=== PATIENT | male | born 1935 | race African-American/Black ===

== ENCOUNTER 2016-07-09 18:22 | Inpatient (IN) | payer MEDICARE, OTHER ==
[~2016-07-09] VITALS: Ht 185.4 cm; Wt 82.6 kg
[~2016-07-09 18:22] MED LIST: ABILIFY2 MG ORAL; ACETAMINOPHEN500 M5 PO; ACETAMINOPHEN80 MG ORAL; AMLODIPINE BES2.5 MG ORAL; ASPIR 8181 MG ORAL; ATORVASTATIN CA10 MG ORAL; AUGMENTIN TAB875 MG ORAL; BENADRYL ALLERG25 M1 PO; COLACE100 MG ORAL; COLCHICINE0.6 M1 PO; DULCOLAX10 MG RC; FLEET ENEMA133 ML RECTAL; JANUVIA25 MG ORAL; LEVAQUIN500 MG ORAL; LEVEMIR FL100 UNIT/1 SUBQ; LOVENOX10 M1 SUBQ; METFORMIN HCL500 M1 ORAL; MILK OF MA400 MG/51 ORAL; MYLANTA30 M1 PO; NORVASC2.5 MG ORAL; NOVOLOG100 UNITS1 SQ; PAXIL10 MG ORAL; PLAVIX75 MG ORAL; PROTONIX40 MG ORAL; ROBITUSSIN DM5 ML ORAL; ZYLOPRIM100 MG ORAL
[2016-07-09 18:42] VITALS: BP 100/64
[2016-07-09 19:11] LABS: MEAN CORPUSCULAR HEMOGLOBIN 34.3 PG (27.0-31.0); MEAN CORPUSCULAR HGB CONC 34.9 G/DL (32.0-36.0); MEAN CORPUSCULAR VOLUME 98 FL (80-99); MEAN PLATELET VOLUME 9.6 FL (6.5-10.1); PLATELET COUNT 82 K/UL (150-450); RED CELL DISTRIBUTION WIDTH 12.8 % (11.6-14.8); WHITE BLOOD COUNT 7.4 K/UL (4.8-10.8)
[2016-07-09] MEDS ORDERED: Acetaminophen 500mg (ES) tab ORAL ONE (19:15)
[2016-07-09 19:25] LABS: TROPONIN I < 0.30 ng/mL (<=0.30)
[2016-07-09 19:28] LABS: ALANINE AMINOTRANSFERASE 62 U/L (3-41); ALBUMIN/GLOBULIN RATIO 1.4 (1.0-2.7); ANION GAP 25 (5-15); ASPARTATE AMINO TRANSFERASE 92 U/L (5-40); CALCIUM 9.2 mg/dL (8.6-10.2); CARBON DIOXIDE 18 mEQ/L (20-30); CHLORIDE 99 mEQ/L (98-107); CREATININE 1.4 mg/dL (0.7-1.2); HEMOLYSIS 4; POTASSIUM 3.4 mEQ/L (3.4-4.9); SODIUM 142 mEQ/L (135-145); TOTAL PROTEIN 6.3 g/dL (6.6-8.7)
[2016-07-09] MEDS ORDERED: NS 1000ml 2,900 ML IVLG ONE (19:30)
[2016-07-09] MEDS ORDERED: Cefepime HCl 1 GM in D5W 55 ML IVPB ONE (19:30)
[2016-07-09 19:31] LABS: REFLEX LACTIC ACID YES OR NO YES
[2016-07-09 19:38] LABS: CKMB 1.9 ng/mL (< 6.7)
[2016-07-09] MEDS ORDERED: Cefepime 1gm vial ONE (19:45)
[2016-07-09 19:49] LABS: BILIRUBIN,DIRECT 0.7 mg/dL (0.1-0.3)
[2016-07-09 20:12] VITALS: BP 96/55
--- NOTE | 2016-07-09 20:13 | Emergency Room Report ---
History of Present Illness General Chief Complaint: Flu Like Symptoms Source: Patient, EMS Present Illness HPI This patient presents from home not feeling well. He states that he has had no appetite. He states he feels weak. He denies cough or congestion. He denies abdominal pain. He denies chest pain or shortness of breath. He denies difficulty urinating. He does have subjective fever. He has no other complaints. Allergies: Coded Allergies: No Known Allergies (Unverified , 10/12/15) Call to [facility] [place] [facility], spoke with KALA Fung confirmed paperwork which indicated no known allergies to medications. Patient History Past Medical History: see triage record, DM, HTN, [place], CAD, CVA/TIA Social History: Denies: alcohol use, drug use, smoking Reviewed Nursing Documentation: PMH: Agreed, PSxH: Agreed Nursing Documentation-PMH Hx Cardiac Problems: Yes Hx Hypertension: Yes Hx Diabetes: Yes Hx Cancer: No - GOUT Hx Neurological Problems: Yes Hx Cerebrovascular Accident: Yes Review of Systems All Other Systems: negative except mentioned in HPI Physical Exam Vital Signs Date Time Temp Pulse Resp B/P Pulse Ox O2 Delivery O2 Flow Rate FiO2 07/09/16 18:21 99.1 141 20 100/64 93 Room Air Sp02 EP Interpretation: reviewed, normal General Appearance: no apparent distress, alert, GCS 15, non-toxic Head: normocephalic, atraumatic Eyes: bilateral eye PERRL, bilateral eye normal inspection ENT: hearing grossly normal, normal pharynx, no angioedema, normal voice Neck: full range of motion, supple/symm/no masses Respiratory: chest non-tender, lungs clear, normal breath sounds, speaking full sentences Cardiovascular #1: no edema, tachycardia Gastrointestinal: normal bowel sounds, non tender, soft, non-distended, no guarding, no rebound Rectal: deferred Musculoskeletal: back normal, normal range of motion, non-tender Neurologic: alert, oriented x3, responsive, motor strength/tone normal, sensory intact, speech normal Psychiatric: judgement/insight normal, memory normal, mood/affect normal, no suicidal/homicidal ideation Skin: normal color, no rash, warm/dry, well hydrated Medical Decision Making Diagnostic Impression: Primary Impression: Pneumonia Additional Impressions: Sepsis Fever Lactic acidosis ER Course Patient presents with pneumonia and sepsis. He is febrile, tachycardic and has an elevated lactate. Initially, the patient's blood pressure was lower than would be expected with systolics in the 90s. He was given aggressive IV fluids and broad-spectrum antibiotics stabilized and improved. He was found to have significant lactic acidosis. The patient had no abdominal pain or tenderness. Further discussion with the inpatient physician and a CT chest abdomen and pelvis was ordered to further investigate for a source of the significant lactic acidosis. Influenza test was negative. CT chest, abdomen and pelvis is pending. The inpatient physician and will follow up on the results of the CT' s. Please see the electronic medical record for official report. This patient is critically ill. This patient required complex medical decision- making, aggressive intervention, extensive laboratory workup and monitoring. Critical care time: 40 minutes. Labs Test 07/09/16 18:40 07/09/16 19:58 07/09/16 21:10 White Blood Count 7.4 K/UL (4.8-10.8) Red Blood Count 4.40 M/UL (4.70-6.10) Hemoglobin 15.1 G/DL (14.2-18.0) Hematocrit 43.3 % (42.0-52.0) Mean Corpuscular Volume 98 FL (80-99) Mean Corpuscular Hemoglobin 34.3 PG (27.0-31.0) Mean Corpuscular Hemoglobin Concent 34.9 G/DL (32.0-36.0) Red Cell Distribution Width 12.8 % (11.6-14.8) Platelet Count 82 K/UL (150-450) Mean Platelet Volume 9.6 FL (6.5-10.1) Neutrophils (%) (Auto) % (45.0-75.0) Lymphocytes (%) (Auto) % (20.0-45.0) Monocytes (%) (Auto) % (1.0-10.0) Eosinophils (%) (Auto) % (0.0-3.0) Basophils (%) (Auto) % (0.0-2.0) Sodium Level 142 mEQ/L (135-145) Potassium Level 3.4 mEQ/L (3.4-4.9) Chloride Level 99 mEQ/L (98-107) Carbon Dioxide Level 18 mEQ/L (20-30) Anion Gap 25 (5-15) Blood Urea Nitrogen 17 mg/dL (7-23) Creatinine 1.4 mg/dL (0.7-1.2) Estimat Glomerular Filtration Rate mL/min (>60) Glucose Level 106 mg/dL (74-106) Lactic Acid Level 6.00 mmol/L (0.66-2.22) 6.30 mmol/L (0.66-2.22) Calcium Level 9.2 mg/dL (8.6-10.2) Total Bilirubin 1.1 mg/dL (0.0-1.2) Direct Bilirubin 0.7 mg/dL (0.1-0.3) Aspartate Amino Transf (AST/SGOT) 92 U/L (5-40) Alanine Aminotransferase (ALT/SGPT) 62 U/L (3-41) Alkaline Phosphatase 46 U/L (40-129) Total Creatine Kinase 102 U/L (38-174) Creatine Kinase MB 1.9 ng/mL (< 6.7) Creatine Kinase MB Relative Index 1.8 Troponin I < 0.30 ng/mL (<=0.30) Total Protein 6.3 g/dL (6.6-8.7) Albumin 3.7 g/dL (3.5-5.2) Globulin 2.6 g/dL Albumin/Globulin Ratio 1.4 (1.0-2.7) EKG Diagnostic Results Rate: tachycardiac ST Segments: other Other Impression ST depressions in V3, V4, V5 Rhythm Strip Diag. Results EP Interpretation: yes Rate: 120's Rhythm: no PVC's, no ectopy Other Impression S.tachycardia. Chest X-Ray Diagnostic Results EP Interpretation: Yes Findings: no effusion, no pneumothorax, other Number of Views: 1 Other Impression LLL opacity CT/MRI/US Diagnostic Results CT/MRI/US Diagnostic Results : Imaging Test Ordered: CT CAP Impression Pending. See EMR. Last Vital Signs Date Time Temp Pulse Resp B/P Pulse Ox O2 Delivery O2 Flow Rate FiO2 07/09/16 18:42 141 20 Room Air 07/09/16 18:42 101.9 100/64 93 Disposition: ADMITTED INPATIENT Condition: Critical Referrals: NOT CHOSEN RUSS/,REFERRING (PCP) REG SCHROEDER D.O. Jul 09, 2016 20:13
[2016-07-09 21:33] LABS: KETONES,URINE 1+ (NEGATIVE); LEUKOCYTE ESTERASE ,URINE 1+ (NEGATIVE); NITRITE,URINE NEGATIVE (NEGATIVE); PH,URINE 5 (4.5-8.0); PROTEIN,URINE 2+ (NEGATIVE); UROBILINOGEN,URINE 4 MG/DL (0.0-1.0)
[2016-07-09 21:41] VITALS: BP 105/59
[2016-07-09 21:46] LABS: BAND NEUTROPHILS % (MANUAL) 2 % (0-8); EOSINOPHILS % (MANUAL) 1 % (0-3); LYMPHOCYTES % (MANUAL) 12 % (20-45); NEUTROPHILS % (MANUAL) 80 % (45-75); TOTAL CELLS COUNTED 100
[2016-07-09 21:47] LABS: BASOPHILS % (MANUAL) 0 % (0-2); PLATELET ESTIMATE DECREASED
[2016-07-09 21:48] LABS: MACROCYTES 1+; OVALOCYTES OCCASIONAL; PLATELET MORPHOLOGY NORMAL
[2016-07-09 22:03] LABS: APPEARANCE,URINE SLIGHTLY CLOUDY; RBC,URINE 0-2 /HPF (0 - 0)
[2016-07-09 22:04] LABS: BACTERIA,URINE FEW /HPF; SQUAMOUS EPITHELIAL CELL,UR FEW /LPF (NONE/OCC)
[2016-07-09 22:06] LABS: ICTOTEST POSITIVE
[2016-07-09 22:34] VITALS: BP 100/56
[2016-07-10] VITALS (16 sets, daily range): BP systolic 88–118; BP diastolic 53–77
[2016-07-10] MEDS ORDERED: Zolpidem 5mg tab ORAL PRN (03:30)
[2016-07-10] MEDS ORDERED: Milk of Magnesia 30ml Ud ORAL PRN (03:30)
[2016-07-10] MEDS ORDERED: Acetaminophen 500mg (ES) tab ORAL PRN (03:45)
[2016-07-10] MEDS ORDERED: Cefepime 2gm ONE (05:29)
[2016-07-10] MEDS ORDERED: Azithromycin Inj IV ONE (05:29)
[2016-07-10 05:53] LABS: MEAN CORPUSCULAR HEMOGLOBIN 33.4 PG (27.0-31.0); MEAN CORPUSCULAR HGB CONC 33.1 G/DL (32.0-36.0); MEAN CORPUSCULAR VOLUME 101 FL (80-99); MEAN PLATELET VOLUME 9.4 FL (6.5-10.1); PLATELET COUNT 61 K/UL (150-450); RED BLOOD COUNT 4.25 M/UL (4.70-6.10); WHITE BLOOD COUNT 7.5 K/UL (4.8-10.8)
[2016-07-10] MEDS: Azithromycin 500mg/D5W 275ml IV SCH ×2 (06:05)
[2016-07-10] MEDS: Cefepime 2gm/D5W 110ml IV SCH ×4 (06:06→19:35)
[2016-07-10] MEDS: NovoLOG Insulin Flexpen SUBQ SCH ×4 (06:20→22:27)
[2016-07-10 06:53] LABS: HEMOGLOBIN A1C 4.9 % (< 6.0)
[2016-07-10 06:55] LABS: TROPONIN I 6.37 ng/mL (<=0.30)
--- NOTE | 2016-07-10 07:01 | Pulmonology Progress Note ---
Assessment/Plan Assessment/Plan Impression: Low grade fever, tachycardia, hypotension, AMS all consistent with SIRS, possible sepsis. Lactic acidosis TRUDY Mild transaminitis Former smoker, chronic cough, ER record indicate LLL infiltrate suggestive of CAP Old CVA, right-sided weakness and dysarticulation/wheel chair bound Given CVA history and AMS and LLL infiltrate, aspiration/dysphagia to be looked into Recommendations: Follow up on CT scan (C/A/P) ordered in ED Swallow eval IVF Watch creat/LFT's Empiric antibiotics Keep HOB elevated DVT/stress ulcer prophylaxis Duplex of legs Many thanks, M. Gale Lopez MD, [facility] Pulmonary Subjective Allergies: Coded Allergies: No Known Allergies (Unverified , 10/12/15) Call to [facility], spoke with KALA Fung confirmed paperwork which indicated no known allergies to medications. Subjective Pulmonary Consultation Ref MD: Pedro Law MD Reason for consult: abnormal CXR/sepsis Former smoker with history of stroke, has felt weak for a few days. He does not recall details and in fact he did not know he was in the hospital when I told him so. He reports chronic intermittent cough "since childhood." He stoped smoking when diagnosed with stroke in 2003. 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 He is wheelchair bound (has electric wheelchair). Currently with no chest pain, has no dyspnea. has chronic mild cough. No abdominal pain. No emesis/diarrhea, no pain in extremities, has chronic right sided weakness. He has DM, no thyroid dysfxn, denies history of fall recently. Has no known LD. 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 FH: N/C ROS: 10 point review of system listed above Meds: reconciled see LAKESHIA BARBOZA Full code Objective Last 24 Hour Vital Signs Date Time Temp Pulse Resp B/P Pulse Ox O2 Delivery O2 Flow Rate FiO2 07/10/16 04:00 117 07/10/16 04:00 98.6 116 20 107/64 93 Room Air 07/09/16 23:14 97.8 127 25 100/56 96 Room Air 07/09/16 22:34 97.8 127 25 100/56 96 Room Air 07/09/16 21:41 99.8 118 25 105/59 96 Room Air 07/09/16 20:20 100.2 07/09/16 20:12 100.5 119 27 96/55 96 Room Air 07/09/16 18:42 141 20 Room Air 07/09/16 18:42 101.9 130 20 100/64 93 Room Air 07/09/16 18:21 99.1 141 20 100/64 93 Room Air Intake and Output 07/09/16 07/10/16 19:00 07:00 Intake Total 3275 ml Balance 3275 ml Intake Oral 320 ml IV Total 2955 ml Objective Gen: WDWN, weak, pleasant, alert HEENT: No discharge from ENT, dry MM, no conjunctivitis Neck: supple, no JVD/LN/TM Lungs: Clear, few left basilar rales, no whz Heart: Tachy, RR, 2/6 sys murmur apex Abdomen: Soft, slight RUQ tenderness, no guarding/rigidity Ext: No edema, +onchomycosis of toes Neuro: Awake, alert, poor recall for recent events (in ED), mild dysarticulation, 1/5 strength in RUE, 2/5 RLE Skin: No rash : groosly normal male Microbiology Date/Time Source Procedure Growth Status 07/09/16 18:40 Nasal Nares Influenza Types A,B Antigen (AIDAN) - Final Complete Laboratory Tests 07/09/16 18:40: White Blood Count 7.4, Red Blood Count 4.40L, Hemoglobin 15.1, Hematocrit 43.3, Mean Corpuscular Volume 98, Mean Corpuscular Hemoglobin 34.3H, Mean Corpuscular Hemoglobin Concent 34.9, Red Cell Distribution Width 12.8, Platelet Count 82L, Mean Platelet Volume 9.6, Neutrophils (%) (Auto) , Lymphocytes (%) (Auto) , Monocytes (%) (Auto) , Eosinophils (%) (Auto) , Basophils (%) (Auto) , Differential Total Cells Counted 100, Neutrophils % (Manual) 80H, Lymphocytes % (Manual) 12L, Monocytes % (Manual) 5, Eosinophils % (Manual) 1, Basophils % ( Manual) 0, Band Neutrophils 2, Platelet Estimate DecreasedL, Platelet Morphology Normal, Macrocytosis 1+, Ovalocytes Occasional, Sodium Level 142, Potassium Level 3.4, Chloride Level 99, Carbon Dioxide Level 18L, Anion Gap 25H , Blood Urea Nitrogen 17, Creatinine 1.4H, Estimat Glomerular Filtration Rate , Glucose Level 106, Lactic Acid Level 6.00H, Calcium Level 9.2, Total Bilirubin 1.1, Direct Bilirubin 0.7H, Aspartate Amino Transf (AST/SGOT) 92H, Alanine Aminotransferase (ALT/SGPT) 62H, Alkaline Phosphatase 46, Total Creatine Kinase 102, Creatine Kinase MB 1.9, Creatine Kinase MB Relative Index 1.8, Troponin I < 0.30, Total Protein 6.3L, Albumin 3.7, Globulin 2.6, Albumin/Globulin Ratio 1.4 07/09/16 19:58: Lactic Acid Level 6.30H 07/09/16 21:10: Urine Color Vesta, Urine Appearance Slightly cloudy, Urine pH 5, Urine Specific [place] 1.015, Urine Protein 2+H, Urine Glucose (UA) Negative, Urine Ketones 1+H , Urine Occult Blood Negative, Urine Nitrite Negative, Urine Bilirubin 2+H, Urine Ictotest Positive, Urine Urobilinogen 4H, Urine Leukocyte Esterase 1+H, Urine RBC 0-2H, Urine WBC 2-4, Urine Squamous Epithelial Cells Few, Urine Bacteria Few 07/10/16 03:20: White Blood Count 7.5, Red Blood Count 4.25L, Hemoglobin 14.2, Hematocrit 43.0, Mean Corpuscular Volume 101H, Mean Corpuscular Hemoglobin 33.4H, Mean Corpuscular Hemoglobin Concent 33.1, Red Cell Distribution Width 13.0, Platelet Count 61L, Mean Platelet Volume 9.4, Neutrophils (%) (Auto) , Lymphocytes (%) ( Auto) , Monocytes (%) (Auto) , Eosinophils (%) (Auto) , Basophils (%) (Auto) , Neutrophils % (Manual) [Pending], Lymphocytes % (Manual) [Pending], Platelet Estimate [Pending], Platelet Morphology [Pending], Sodium Level [Pending], Potassium Level [Pending], Chloride Level [Pending], Carbon Dioxide Level [ Pending], Blood Urea Nitrogen [Pending], Creatinine [Pending], Estimat Glomerular Filtration Rate [Pending], Glucose Level [Pending], Calcium Level [ Pending], Troponin I [Pending], Hemoglobin A1c [Pending], Pro-B-Type Natriuretic Peptide [Pending], Triglycerides Level [Pending], Cholesterol Level [Pending], LDL Cholesterol [Pending], HDL Cholesterol [Pending], Cholesterol/ HDL Ratio [Pending], Thyroid Stimulating Hormone (TSH) [Pending] Current Medications Medications (Trade) Dose Ordered Sig/Justina Route PRN Reason Start Time Stop Time Status Last Admin Dose Admin Acetaminophen (Tylenol) 650 mg Q6H PRN ORAL Mild Pain/Temp > 100.5 07/10/16 03:30 08/09/16 03:29 Al Hydroxide/Mg Hydroxide (Mylanta) 30 ml BID PRN ORAL Nausea & Vomiting 07/10/16 03:45 08/09/16 03:44 Allopurinol (Zyloprim) 100 mg BID@0900,2100 ORAL 07/10/16 09:00 08/09/16 08:59 Amlodipine Besylate (Norvasc) 2.5 mg DAILY ORAL 07/10/16 09:00 08/09/16 08:59 Aripiprazole (Abilify) 2.5 mg BEDTIME ORAL 07/10/16 21:00 08/09/16 20:59 Aspirin (Ecotrin) 81 mg DAILY ORAL 07/10/16 09:00 08/09/16 08:59 Atorvastatin Calcium (Lipitor) 10 mg BEDTIME ORAL 07/10/16 21:00 08/09/16 20:59 Azithromycin 500 mg/Dextrose 275 ml @ 275 mls/hr Q24H IV 07/10/16 05:00 07/17/16 04:59 07/10/16 06:05 Cefepime HCl/ Dextrose (Maxipime/D5W) 110 ml @ 220 mls/hr Q12H IV 07/10/16 06:00 07/17/16 05:59 07/10/16 06:06 Clopidogrel Bisulfate (Plavix) 75 mg DAILY ORAL 07/10/16 09:00 08/09/16 08:59 Dextrose (Dextrose 50%) STAT PRN IV Hypoglycemia 07/10/16 03:15 08/09/16 03:14 Docusate Sodium (Colace) 100 mg BID ORAL 07/10/16 09:00 08/09/16 08:59 Heparin Sodium (Porcine) (Heparin 5000 units/ml) 5,000 units EVERY 12 HOURS SUBQ 07/10/16 09:00 08/09/16 08:59 UNV Insulin Aspart (NovoLOG) BEFORE MEALS AND HS SUBQ 07/10/16 06:30 08/09/16 06:29 Magnesium Hydroxide (Mom) 30 ml DAILYPRN PRN ORAL Constipation 07/10/16 03:30 08/09/16 03:29 Metformin HCl (Glucophage) 500 mg TID@0800,1200,1700 ORAL 07/10/16 08:00 08/09/16 07:59 Paroxetine HCl 10 mg 10 mg DAILY ORAL 07/10/16 09:00 08/09/16 08:59 Sodium Chloride 1,000 ml @ 100 mls/hr Q10H IV 07/10/16 03:45 08/09/16 03:44 07/10/16 04:58 Zolpidem Tartrate (Ambien) 5 mg HSPRN PRN ORAL Insomnia 07/10/16 03:30 08/09/16 03:29 Joaquin Lopez MD Jul 10, 2016 07:01
[2016-07-10 07:19] LABS: ANION GAP 24 (5-15); CALCIUM 8.4 mg/dL (8.6-10.2); CARBON DIOXIDE 15 mEQ/L (20-30); CHLORIDE 104 mEQ/L (98-107); CHOLESTEROL 127 mg/dL (< 200); CHOLESTEROL/HDL RATIO 1.9 (3.3-4.4); CREATININE 1.4 mg/dL (0.7-1.2); HEMOLYSIS 21; LDL CHOLESTEROL (CALC.) 30 mg/dL (60-99); POTASSIUM 4.4 mEQ/L (3.4-4.9); SODIUM 143 mEQ/L (135-145)
[2016-07-10 07:21] LABS: THYROID STIMULATING HORMONE 0.936 uIU/mL (0.300-4.500)
[2016-07-10 08:34] LABS: BAND NEUTROPHILS % (MANUAL) 23 % (0-8); LYMPHOCYTES % (MANUAL) 12 % (20-45); METAMYELOCYTES % 5 % (0-0); MYELOCYTES % 1 % (0-0); NEUTROPHILS % (MANUAL) 56 % (45-75); TOTAL CELLS COUNTED 100
[2016-07-10 08:35] LABS: BASOPHILS % (MANUAL) 0 % (0-2); EOSINOPHILS % (MANUAL) 0 % (0-3); PLATELET ESTIMATE DECREASED; PLATELET MORPHOLOGY NORMAL
[2016-07-10] MEDS ORDERED: Metoprolol 5mg/5ml Inj IVP SCH (09:00)
[2016-07-10] MEDS ORDERED: Heparin 5000 units/ml inj SUBQ SCH (09:00)
[2016-07-10] MEDS: metFORMIN 500mg tab ORAL SCH ×3 (09:12→17:57)
[2016-07-10] MEDS: Aspirin EC 81mg tab ORAL SCH (09:12)
[2016-07-10] MEDS: Allopurinol 100mg Tab ORAL SCH ×2 (09:12→22:25)
[2016-07-10] MEDS: Docusate 100mg cap ORAL SCH ×2 (09:13→17:57)
[2016-07-10] MEDS: PARoxetine 10mg tab ORAL SCH (09:19)
[2016-07-10 09:29] LABS: REFLEX LACTIC ACID YES OR NO YES
[2016-07-10] MEDS: Metoprolol 25mg tab ORAL SCH ×2 (10:00→22:25)
--- NOTE | 2016-07-10 10:16 | Diagnostic Imaging Report ---
\H\CT THORAX\N\ Indications: And shortness of breath, fever, tachycardia, elevated serum lactate level Technique: Continuous helical CT imaging of the thorax was performed with automatic exposure control on a Siemens sensation [address] scanner. Axial images were reconstructed at 5 mm slice thickness and interval. Coronal images were reconstructed at 3 mm slice thickness. No IV contrast was administered secondary to requesting physician's order, despite no contraindications listed in either submitted clinical data or tech note.. CTDI volume(s): 17 mGy Total DLP: 1235 mGy-cm (Includes CT abdomen pelvis) Findings: Comparison: None Lack of IV contrast limits evaluation. Patchy airspace consolidation throughout left lower lobe. Irregular pleural-based linear densities and subsegmental consolidation dependent portion right lower lobe. No pleural abnormality. Heart normal size. No pericardial abnormality. Its prominent arterial mural calcifications. Vascular patency indeterminate. And prominent mediastinal lymph nodes, largest in the aortopulmonary window 3 cm maximal diameter. Small gas bubbles within the bilateral brachiocephalic veins. Mild stranding throughout chest wall subcutaneous soft tissues. Disc marginal osteophytes scattered throughout thoracic spine. IMPRESSION: Left lower lobe alveolar consolidation compatible with but not specific for pneumonia Right lower lobe subsegmental atelectasis with or without superimposed scarring Mediastinal adenopathy likely reactive to above Arteriosclerosis Suggestion of anasarca Degenerative spondylosis Small gas bubbles in central veins likely iatrogenic \H\CT ABDOMEN PELVIS\N\ Indications: Abdominal pain, fever, tachycardia, elevated serum lactate level Technique: Continuous helical CT imaging of the abdomen and pelvis was performed with automatic exposure control on a Siemens sensation [address] scanner. Axial, coronal, sagittal images reconstructed at 3 mm slice thickness. No oral or IV contrast was administered per requesting physician's order, despite no contraindications listed in either submitted clinical data or tech note.. CTDI volume(s): As above mGy Total DLP: As above mGy-cm Findings: Comparison: None Lack of IV and oral contrast limits evaluation. Images further degraded by motion, artifact generated by the patient's right upper extremity on his torso. Gastrointestinal tract nondilated throughout. No obvious mural thickening, adjacent stranding, extraluminal gas or fluid collections. Small nodular calcifications in the liver. Gallbladder not reliably identified. 2.8 cm circumscribed mass with mildly increased attenuation in multiple of left kidney. Focal calcifications in the periphery of both kidneys. Prominent arterial mural calcifications. Vascular patency indeterminate. Urinary bladder poorly distended, demonstrates apparent diffuse mural thickening. Remainder visualized abdominopelvic anatomy demonstrates no other obvious acute abnormality. Mild diffuse stranding throughout the abdominopelvic wall subcutaneous soft tissues. Multilevel disc space narrowing with marginal osteophyte formation, vacuum phenomenon, discogenic sclerosis, facet sclerosis and hypertrophy in lumbar spine. IMPRESSION: No evidence of acute abdominopelvic disease, with limitation as described. Subtle but potentially significant abnormalities may be missed. Repeat CT scan with full oral and IV contrast preparation recommended for more complete evaluation, as clinically indicated Nonvisualization of gallbladder--correlate with surgical history Hepatic calcifications--granulomatous versus arteriosclerotic Bilateral nonobstructive nephrolithiasis 2.8 cm left renal mass not further characterizable--proteinaceous cysts versus neoplasm. Ultrasound correlation recommended. Severe arteriosclerosis, vascular patency indeterminate -- Apparent mural thickening of urinary bladder wall--underdistention versus hypertrophy versus cystitis versus neoplasm Suggestion of mild anasarca Degenerative spondylosis This correlates with [facility] preliminary report.
--- NOTE | 2016-07-10 10:29 | Diagnostic Imaging Report ---
Indications: Chest pain Technique: Audible AP chest Findings: Comparison: 10/12/2015 Hazy opacity has developed in the left lower lung. Left costophrenic angle mildly less distinct than on previous exam. Right lung and pleura remain clear. Heart size and pulmonary vasculature remain within normal limits. Aortic arch calcification again noted. IMPRESSION: Left lower lobe findings suggest development of pneumonia. Correlate clinically. Associated small left pleural effusion not excludable.
[2016-07-10 11:44] LABS: PHOSPHORUS 3.3 mg/dL (2.5-4.8)
[2016-07-10 14:21] LABS: REFLEX LACTIC ACID YES OR NO YES
[2016-07-10 14:22] LABS: TROPONIN I 14.84 ng/mL (<=0.30)
--- NOTE | 2016-07-10 14:33 | Cardiology Report ---
APPROVED REPORT EKG Measurement Heart [id number] Sinus tachycardia Possible Left atrial enlargement Marked ST abnormality, possible anterior subendocardial injury Abnormal ECG
--- NOTE | 2016-07-10 14:49 | Cardiac Electrophysiology PN ---
Subjective Subjective [id number]. Objective Last 24 Hour Vital Signs Date Time Temp Pulse Resp B/P Pulse Ox O2 Delivery O2 Flow Rate FiO2 07/10/16 14:00 103 30 109/77 100 Nasal Cannula 3.0 07/10/16 13:00 98 34 106/77 100 Nasal Cannula 3.0 07/10/16 12:00 103 07/10/16 12:00 98.0 98 29 102/68 100 Nasal Cannula 3.0 07/10/16 11:00 98.1 98 29 94/61 100 Nasal Cannula 3.0 07/10/16 10:00 103 07/10/16 10:00 103 98/58 07/10/16 10:00 98.5 103 30 98/66 100 Nasal Cannula 3.0 07/10/16 09:23 114 100/67 07/10/16 08:00 117 07/10/16 08:00 97.5 117 24 105/58 93 Nasal Cannula 2.0 07/10/16 04:00 117 07/10/16 04:00 98.6 116 20 107/64 93 Room Air 07/09/16 23:14 97.8 127 25 100/56 96 Room Air 07/09/16 22:34 97.8 127 25 100/56 96 Room Air 07/09/16 21:41 99.8 118 25 105/59 96 Room Air 07/09/16 20:20 100.2 07/09/16 20:12 100.5 119 27 96/55 96 Room Air 07/09/16 18:42 141 20 Room Air 07/09/16 18:42 101.9 130 20 100/64 93 Room Air 07/09/16 18:21 99.1 141 20 100/64 93 Room Air Intake and Output 07/09/16 07/10/16 19:00 07:00 Intake Total 3695 ml Balance 3695 ml Intake Oral 320 ml IV Total 3375 ml Laboratory Tests Test 07/09/16 18:40 07/09/16 19:58 07/09/16 21:10 07/10/16 03:20 White Blood Count 7.4 K/UL (4.8-10.8) 7.5 K/UL (4.8-10.8) Red Blood Count 4.40 M/UL (4.70-6.10) L 4.25 M/UL (4.70-6.10) L Hemoglobin 15.1 G/DL (14.2-18.0) 14.2 G/DL (14.2-18.0) Hematocrit 43.3 % (42.0-52.0) 43.0 % (42.0-52.0) Mean Corpuscular Volume 98 FL (80-99) 101 FL (80-99) H Mean Corpuscular Hemoglobin 34.3 PG (27.0-31.0) H 33.4 PG (27.0-31.0) H Mean Corpuscular Hemoglobin Concent 34.9 G/DL (32.0-36.0) 33.1 G/DL (32.0-36.0) Red Cell Distribution Width 12.8 % (11.6-14.8) 13.0 % (11.6-14.8) Platelet Count 82 K/UL (150-450) L 61 K/UL (150-450) L Mean Platelet Volume 9.6 FL (6.5-10.1) 9.4 FL (6.5-10.1) Neutrophils (%) (Auto) % (45.0-75.0) % (45.0-75.0) Lymphocytes (%) (Auto) % (20.0-45.0) % (20.0-45.0) Monocytes (%) (Auto) % (1.0-10.0) % (1.0-10.0) Eosinophils (%) (Auto) % (0.0-3.0) % (0.0-3.0) Basophils (%) (Auto) % (0.0-2.0) % (0.0-2.0) Differential Total Cells Counted 100 100 Neutrophils % (Manual) 80 % (45-75) H 56 % (45-75) Lymphocytes % (Manual) 12 % (20-45) L 12 % (20-45) L Monocytes % (Manual) 5 % (1-10) 3 % (1-10) Eosinophils % (Manual) 1 % (0-3) 0 % (0-3) Basophils % (Manual) 0 % (0-2) 0 % (0-2) Band Neutrophils 2 % (0-8) 23 % (0-8) H Platelet Estimate Decreased L Decreased L Platelet Morphology Normal Normal Macrocytosis 1+ Ovalocytes Occasional Sodium Level 142 mEQ/L (135-145) 143 mEQ/L (135-145) Potassium Level 3.4 mEQ/L (3.4-4.9) 4.4 mEQ/L (3.4-4.9) Chloride Level 99 mEQ/L (98-107) 104 mEQ/L (98-107) Carbon Dioxide Level 18 mEQ/L (20-30) L 15 mEQ/L (20-30) L Anion Gap 25 (5-15) H 24 (5-15) H Blood Urea Nitrogen 17 mg/dL (7-23) 18 mg/dL (7-23) Creatinine 1.4 mg/dL (0.7-1.2) H 1.4 mg/dL (0.7-1.2) H Estimat Glomerular Filtration Rate mL/min (>60) mL/min (>60) Glucose Level 106 mg/dL (74-106) 83 mg/dL (74-106) Lactic Acid Level 6.00 mmol/L (0.66-2.22) H 6.30 mmol/L (0.66-2.22) H Calcium Level 9.2 mg/dL (8.6-10.2) 8.4 mg/dL (8.6-10.2) L Total Bilirubin 1.1 mg/dL (0.0-1.2) Direct Bilirubin 0.7 mg/dL (0.1-0.3) H Aspartate Amino Transf (AST/SGOT) 92 U/L (5-40) H Alanine Aminotransferase (ALT/SGPT) 62 U/L (3-41) H Alkaline Phosphatase 46 U/L (40-129) Total Creatine Kinase 102 U/L (38-174) Creatine Kinase MB 1.9 ng/mL (< 6.7) Creatine Kinase MB Relative Index 1.8 Troponin I < 0.30 ng/mL (<=0.30) 6.37 ng/mL (<=0.30) *H Total Protein 6.3 g/dL (6.6-8.7) L Albumin 3.7 g/dL (3.5-5.2) Globulin 2.6 g/dL Albumin/Globulin Ratio 1.4 (1.0-2.7) Urine Color Vesta Urine Appearance Slightly cloudy Urine pH 5 (4.5-8.0) Urine Specific [place] 1.015 (1.005-1.035) Urine Protein 2+ (NEGATIVE) H Urine Glucose (UA) Negative (NEGATIVE) Urine Ketones 1+ (NEGATIVE) H Urine Occult Blood Negative (NEGATIVE) Urine Nitrite Negative (NEGATIVE) Urine Bilirubin 2+ (NEGATIVE) H Urine Ictotest Positive Urine Urobilinogen 4 MG/DL (0.0-1.0) H Urine Leukocyte Esterase 1+ (NEGATIVE) H Urine RBC 0-2 /HPF (0 - 0) H Urine WBC 2-4 /HPF (0 - 0) Urine Squamous Epithelial Cells Few /LPF (NONE/OCC) Urine Bacteria Few /HPF (NONE) Metamyelocytes % 5 % (0-0) H Myelocytes % 1 % (0-0) H Red Blood Cell Morphology Normal Hemoglobin A1c 4.9 % (< 6.0) Phosphorus Level 3.3 mg/dL (2.5-4.8) Magnesium Level 1.0 mg/dL (1.7-2.5) L Pro-B-Type Natriuretic Peptide 78478 pg/mL (0-450) H Triglycerides Level 153 mg/dL (< 150) H Cholesterol Level 127 mg/dL (< 200) LDL Cholesterol 30 mg/dL (60-99) L HDL Cholesterol 66 mg/dL (> 60) H Cholesterol/HDL Ratio 1.9 (3.3-4.4) L Thyroid Stimulating Hormone (TSH) 0.936 uIU/mL (0.300-4.500) Test 07/10/16 08:05 07/10/16 13:50 Lactic Acid Level 5.20 mmol/L (0.66-2.22) H 4.90 mmol/L (0.66-2.22) H Troponin I 14.84 ng/mL (<=0.30) *H Legionella pneumophila Group 1 Ab Pending Legionella pneumophilia IgM Group 1 Pending Mycoplasma pneumoniae IgG Antibody Pending Mycoplasma pneumoniae IgM Ab Titer Pending Microbiology Date/Time Source Procedure Growth Status 07/09/16 18:40 Blood Blood Culture - Preliminary Resulted 07/09/16 18:25 Blood Blood Culture - Preliminary Resulted 07/09/16 18:40 Nasal Nares Influenza Types A,B Antigen (AIDAN) - Final Complete CHUCKIE VELARDE Jul 10, 2016 14:49
--- NOTE | 2016-07-10 15:59 | Consultation ---
DATE OF CONSULTATION: 07/10/2016 INFECTIOUS DISEASES CONSULTATION CONSULTING PHYSICIAN: Artemio Suero M.D. REFERRING PHYSICIAN: Pedro Law M.D. REASON FOR CONSULTATION: Pneumonia. HISTORY OF PRESENTING ILLNESS: This is an 80-year-old gentleman with history of diabetes, hypertension, CVA, and myocardial infarction, who came in with cough. He was found to have pneumonia, and an Infectious Diseases consultation has been obtained for antibiotics. PAST MEDICAL HISTORY: 1. History of diabetes. 2. Hypertension. 3. Myocardial infarction. 4. Coronary artery disease. 5. CVA. 6. Transient ischemic attack. 7. Gout. SOCIAL HISTORY: No history of smoking, alcohol, or drug use. FAMILY HISTORY: Positive for stroke. REVIEW OF SYSTEMS: Respiratory: The patient denies any fever or chills. He has a cough. No shortness of breath or chest pain currently. Cardiac: No chest pain. No palpitations. No dizziness. No syncope. Gastrointestinal: No nausea. No vomiting. No abdominal pain or diarrhea. Genitourinary: No dysuria. No hematuria. MEDICATIONS: As an inpatient, the patient is on Abilify, Lipitor, Lopressor, subcutaneous heparin, allopurinol, Norvasc, aspirin, Plavix, docusate, Paxil, metformin, insulin, cefepime, azithromycin, Mylanta, Tylenol, milk of magnesia, and Ambien. ALLERGIES: No known drug allergies. PHYSICAL EXAMINATION: VITAL SIGNS: Temperature of 98.5, pulse of 103, respiratory rate of 30, blood pressure 98/58, and O2 saturation of 100%. HEENT: Pupils are equally reactive to light and accommodation. Mouth appears clean without thrush. NECK: Supple. No adenopathy. No JVD. CARDIOVASCULAR: Regular rate and rhythm. No murmurs. LUNGS: Clear to auscultation bilaterally. No crackles. No wheezes. ABDOMEN: Soft. Nontender. No organomegaly. EXTREMITIES: No cyanosis. No clubbing. Edema noted bilaterally. LABORATORY AND DIAGNOSTIC DATA: White count 7.5, hemoglobin 14.2, hematocrit 43, MCV 101, and platelet count of 61 with neutrophils of 56%. Sodium 143, potassium 4.4, chloride 104, bicarbonate 15, BUN 18, creatinine 1.4, glucose 83, and calcium 8.4. Troponin 6.37 and beta-natriuretic peptide 13,996. Cholesterol 127. Lactic acid 5.2. UA showing 2 to 4 white cells. Nasal swab was negative for influenza A and B. Chest x-ray showing a left lower lobe opacity. ASSESSMENT: 1. This is an 80-year-old gentleman with history of diabetes, hypertension, myocardial infarction, who comes in with a left-sided community-acquired pneumonia versus atypical pneumonia. 2. History of coronary artery disease. 3. Diabetes. 4. Hypertension. PLAN: 1. Continue cefepime and azithromycin. 2. We will order sputum for Gram stain and culture. 3. We will order for serum Legionella antibody. 4. We will order for mycoplasma serology. 5. We will follow up cultures and adjust antibiotics accordingly. I would like to thank Dr. Law for this consultation. Grace Matos JOB#: [id number] CC: Pedro Law M.D.; Fax#: [phone]
[2016-07-10] MEDS ORDERED: Vancomycin 1250mg in D5W 275ml IVPB SCH (17:00)
[2016-07-10] MEDS ORDERED: NS 275ml ONE (18:04)
[2016-07-10] MEDS ORDERED: Tubing IV Secondary IV ONE ×2 (18:04)
[2016-07-10] MEDS: Pantoprazole Inj IVP SCH (22:24)
[2016-07-10] MEDS: Enoxaparin 80mg Inj SUBQ SCH (22:33)
[2016-07-10 23:26] LABS: MEAN CORPUSCULAR HEMOGLOBIN 32.9 PG (27.0-31.0); MEAN CORPUSCULAR HGB CONC 32.5 G/DL (32.0-36.0); MEAN CORPUSCULAR VOLUME 101 FL (80-99); MEAN PLATELET VOLUME 10.7 FL (6.5-10.1); PLATELET COUNT 71 K/UL (150-450); RED BLOOD COUNT 3.69 M/UL (4.70-6.10); RED CELL DISTRIBUTION WIDTH 13.5 % (11.6-14.8); WHITE BLOOD COUNT 12.2 K/UL (4.8-10.8)
[2016-07-10 23:30] LABS: BASOPHILS % (AUTO) 0.7 % (0.0-2.0); LYMPHOCYTES % (AUTO) 9.6 % (20.0-45.0); MONOCYTES % (AUTO) 8.6 % (1.0-10.0); NEUTROPHILS % (AUTO) 81.1 % (45.0-75.0)
--- NOTE | 2016-07-10 23:39 | History and Physical Report ---
DATE OF ADMISSION: 07/09/2016 HISTORY OF PRESENT ILLNESS: The patient is an unfortunate 80-year-old gentleman with history of diabetes, history of CVA with generalized right-sided hemiparesis, history of hypertension and history of hyperlipidemia, who presented to the emergency room at [facility] with complaints of generalized weakness occurring over the past several days. He has had difficulty getting out of bed. Denies any headaches. No sore throat. Denies any chest pain or shortness of breath. Denies any cough. No abdominal pain. No urinary symptoms. The patient was evaluated in the ER. He was noted to have a left lower lobe infiltrate as well as elevated lactic acid level. He was initially admitted to the monitored bed and started on antibiotics and fluids. Pulmonary ID consultation has been requested. PAST MEDICAL HISTORY: Includes a history of CVA with right-sided hemiparesis, history of schizophrenia, history of diabetes, history of previous diabetic type 2 ketoacidosis, history of hyperlipidemia, history of hypertension, history of gout, and history of CAD. MEDICATIONS: Please see reconciled med list. ALLERGIES: Penicillin. FAMILY HISTORY: Noncontributory. REVIEW OF SYSTEMS: He admits to generalized weakness as described above. A 12-point review of systems reviewed negative except for above. PHYSICAL EXAMINATION: GENERAL: The patient is a well-developed, well-nourished, currently in no apparent distress. VITAL SIGNS: Blood pressure 99/57, pulse 107, saturations 100% on 3 liters, and respirations are in the 30s and appears to be comfortable. HEENT: Head is normocephalic and atraumatic. Pupils are equal and reactive to light. Extraocular muscles are intact. Eyes are anicteric. NECK: Supple with slight JVP. LUNGS: He does have some crackles at the bases. HEART: Regular rate and rhythm. ABDOMEN: Soft. Positive bowel sounds. EXTREMITIES: No clubbing, cyanosis, or edema. NEUROLOGIC: Alert, nonfocal and generalized right-sided weakness and hemiparesis as a result of his CVA. LABORATORY DATA: Revealed a white count 7.4, hemoglobin 15.1, hematocrit 43, and platelet count 82,000. Chemistry revealed troponin of 6.37. Lactic acid, which was initially 6 has come down to 4.9. BMP is not on the computer at this time. EKG noted. ASSESSMENT AND PLAN: The patient is an 80-year-old gentleman with multiple medical problems, as described above, who presents with generalized weakness. He does have left lower lobe infiltrate and elevated lactic acid level. The patient was given intravenous fluids. antibiotics. ID and pulmonary consultation was requested Dr. Suero and Dr. Lopez. In the morning, I was called by nurse that his troponin was 6.37. He was started on beta-kashmir and transferred to the intensive care unit. A 2D echo has been requested and cardiology consultation was requested from Dr. Damico will be seeing him. We will monitor further troponins on him. The patient's lactic acid is slowly decreasing. The patient should be on DVT and ulcer prophylaxis. Pedro Law M.D. DR: DOMINIQUE JOB#: [id number] CC:
[2016-07-10 23:44] LABS: HEMOGLOBIN A1C 4.8 % (< 6.0)
[2016-07-10 23:45] LABS: ALANINE AMINOTRANSFERASE 41 U/L (3-41); ALBUMIN/GLOBULIN RATIO 1.1 (1.0-2.7); ANION GAP 17 (5-15); ASPARTATE AMINO TRANSFERASE 112 U/L (5-40); CALCIUM 6.6 mg/dL (8.6-10.2); CARBON DIOXIDE 17 mEQ/L (20-30); CHLORIDE 105 mEQ/L (98-107); CHOLESTEROL 97 mg/dL (< 200); CHOLESTEROL/HDL RATIO 2.9 (3.3-4.4); CREATININE 1.2 mg/dL (0.7-1.2); HEMOLYSIS 5; LDL CHOLESTEROL (CALC.) 35 mg/dL (60-99); PHOSPHORUS 2.1 mg/dL (2.5-4.8); POTASSIUM 3.6 mEQ/L (3.4-4.9); SODIUM 139 mEQ/L (135-145); TOTAL PROTEIN 4.7 g/dL (6.6-8.7)
[2016-07-10 23:49] LABS: TROPONIN I 5.53 ng/mL (<=0.30)
[2016-07-10 23:51] LABS: REFLEX LACTIC ACID YES OR NO YES
[2016-07-10 23:56] LABS: MAGNESIUM 0.9 mg/dL (1.7-2.5)
[2016-07-11] VITALS (24 sets, daily range): BP systolic 84–131; BP diastolic 58–69
[2016-07-11 00:11] LABS: BILIRUBIN,DIRECT 0.7 mg/dL (0.1-0.3)
--- NOTE | 2016-07-11 00:59 | Consultation ---
DATE OF CONSULTATION: 07/10/2016 CARDIOLOGY CONSULTATION REFERRING PHYSICIAN: Pedro Law M.D. REASON FOR CONSULTATION: Non-Q-wave myocardial infarction. HISTORY OF PRESENT ILLNESS: The patient is an 80-year-old gentleman, who was brought from home for not feeling well and not having appetite and feeling weak. The patient denies any chest pain or shortness of breath. No cough. His blood pressure in the ER was 110/64 with a pulse of 141. The patient's temperature was 99.1 degrees. His initial white count was 7.4, however initial troponin was negative, but a subsequent troponin came out 6. A Cardiology care consultation was obtained for further evaluation and management. At the time of my evaluation, the patient is admitted to intensive care unit and just complains of feeling weak, denies any chest pain or shortness of breath; however, his maximum temperature was 101.9 degrees. REVIEW OF SYSTEM: Performed and was negative other than what is mentioned in the history of present illness. PAST MEDICAL HISTORY: 1. Hypertension. 2. Diabetes. 3. Coronary artery disease. 4. Myocardial infarction. 5. CVA. 6. Transient ischemic attack. ALLERGIES: He has no known drug allergies. SOCIAL HISTORY: He lives with [facility]. He does not smoke or drink alcohol. PHYSICAL EXAMINATION: VITAL SIGNS: Show blood pressure 109/77, pulse of 102, respirations 30, and his maximum temperature is 102 degrees, and O2 saturation of 98%. NECK: Shows no JVD. LUNGS: Decreased breath sounds. CARDIOVASCULAR: Showed irregular S1 and S2 with no gallop or murmur. ABDOMEN: Soft. EXTREMITIES: No pitting edema. LABORATORY AND DIAGNOSTIC DATA: His CT of the chest, abdomen, and pelvis showed left lower lobe consolidation suggestive of pneumonia. His EKG showed sinus tachycardia with left atrial enlargement and marked ST abnormalities suggestive of subendocardial injury. His chest x-ray was suggestive of left lower lobe pneumonia. His labs show sodium 140, potassium 4.4, BUN of 18, creatinine 1.4, and glucose of 83. Lactic acid is 6.3. BNP is 14,000. LDL is 30, HDL is 66. TSH is 0.936. First troponin was negative, second was 6.37. 14.8. ASSESSMENT AND PLAN: 1. [id number] myocardial infarction. Troponin rising to 14.84. I will treat the patient medically with aspirin, Plavix, Lopressor, and Lipitor to his medical regimen. I will discontinue amlodipine beta-kashmir. The patient was doing cardiac catheterization for further evaluation of his coronaries. However, the patient does not have any chest pain or shortness of breath and is also being treated for sepsis as his temperature was 102 degrees with lactic acidosis. It is also of note that the patient currently is only 1.4. 2. Elevated troponin . 3. Hypertension. Continue on Lopressor 25 mg twice a day and discontinue amlodipine. 4. Hyperlipidemia, on Lipitor. 5. Diabetes, on metformin. 6. Left lower lobe pneumonia, cefepime and azithromycin. Thank you very much, Dr. Law, for allowing me to participate in the care of this patient. Please do not hesitate to contact me for any questions regarding my evaluation. Bebo Damico M.D. DR: Ct JOB#: [id number] CC:
[2016-07-11] MEDS: Cefepime 2gm/D5W 110ml IV SCH ×4 (05:37→18:36)
[2016-07-11] MEDS: Azithromycin 500mg/D5W 275ml IV SCH ×2 (05:37)
[2016-07-11] MEDS: NovoLOG Insulin Flexpen SUBQ SCH ×4 (06:01→20:32)
[2016-07-11 06:04] LABS: MEAN CORPUSCULAR HEMOGLOBIN 33.5 PG (27.0-31.0); MEAN CORPUSCULAR HGB CONC 33.7 G/DL (32.0-36.0); MEAN CORPUSCULAR VOLUME 100 FL (80-99); MEAN PLATELET VOLUME 11.6 FL (6.5-10.1); PLATELET COUNT 91 K/UL (150-450); RED BLOOD COUNT 3.71 M/UL (4.70-6.10); RED CELL DISTRIBUTION WIDTH 13.1 % (11.6-14.8); WHITE BLOOD COUNT 13.2 K/UL (4.8-10.8)
[2016-07-11 06:39] LABS: ALANINE AMINOTRANSFERASE 43 U/L (3-41); ALBUMIN/GLOBULIN RATIO 0.9 (1.0-2.7); ANION GAP 14 (5-15); ASPARTATE AMINO TRANSFERASE 118 U/L (5-40); CALCIUM 7.7 mg/dL (8.6-10.2); CARBON DIOXIDE 17 mEQ/L (20-30); CHLORIDE 106 mEQ/L (98-107); CREATININE 1.3 mg/dL (0.7-1.2); HEMOLYSIS 5; POTASSIUM 4.3 mEQ/L (3.4-4.9); SODIUM 137 mEQ/L (135-145); TOTAL PROTEIN 5.3 g/dL (6.6-8.7)
[2016-07-11 07:42] LABS: TROPONIN I 9.11 ng/mL (<=0.30)
[2016-07-11 07:43] LABS: BILIRUBIN,DIRECT 0.7 mg/dL (0.1-0.3)
[2016-07-11] MEDS: Allopurinol 100mg Tab ORAL SCH ×2 (08:50→20:22)
[2016-07-11] MEDS: Docusate 100mg cap ORAL SCH ×2 (08:50→17:52)
[2016-07-11] MEDS: Aspirin EC 81mg tab ORAL SCH (08:50)
[2016-07-11] MEDS: PARoxetine 10mg tab ORAL SCH (08:50)
[2016-07-11] MEDS: metFORMIN 500mg tab ORAL SCH ×3 (08:51→17:52)
[2016-07-11] MEDS: Pantoprazole Inj IVP SCH ×2 (08:51→20:23)
[2016-07-11] MEDS: Enoxaparin 80mg Inj SUBQ SCH (08:52)
[2016-07-11] MEDS ORDERED: Pantoprazole Inj IVP SCH (09:00)
[2016-07-11] MEDS: Metoprolol 25mg tab ORAL SCH (09:00)
--- NOTE | 2016-07-11 09:01 | Infectious Diseases Prog Note ---
Assessment/Plan Assessment/Plan A: Sepsis Pneumonia Non ST SC DM HPN Positive blood culture, contamination P: Continue Cefepime & Zithromax Discontinue Vancomycin will f/u cultures Subjective ROS Limited/Unobtainable: No Constitutional: Reports: anorexia HEENT: Reports: no symptoms Respiratory: Reports: no symptoms Cardiovascular: Reports: no symptoms Genitourinary: Reports: no symptoms Allergies: Coded Allergies: No Known Allergies (Unverified , 10/12/15) Call to [facility], spoke with KALA Fung confirmed paperwork which indicated no known allergies to medications. Objective Vital Signs Last 24 Hour Vital Signs Date Time Temp Pulse Resp B/P Pulse Ox O2 Delivery O2 Flow Rate FiO2 07/11/16 07:00 87 34 84/59 33 Nasal Cannula 3.0 07/11/16 06:00 91 34 91/58 33 Nasal Cannula 3.0 07/11/16 05:00 88 34 100/59 99 Nasal Cannula 3.0 07/11/16 04:00 90 07/11/16 04:00 98.3 91 34 84/69 98 Nasal Cannula 3.0 07/11/16 03:00 93 37 93/61 97 Nasal Cannula 3.0 07/11/16 02:00 95 38 90/59 97 Nasal Cannula 3.0 07/11/16 01:00 93 34 100/63 99 Nasal Cannula 3.0 07/11/16 00:00 97 07/11/16 00:00 98.4 99 32 105/69 99 Nasal Cannula 3.0 07/10/16 23:00 103 29 112/66 99 Nasal Cannula 3.0 07/10/16 22:25 107 112/66 07/10/16 22:00 107 29 112/66 99 Nasal Cannula 3.0 07/10/16 21:00 112 29 118/73 99 Nasal Cannula 3.0 07/10/16 20:00 109 07/10/16 20:00 98.4 108 32 110/68 96 Nasal Cannula 3.0 07/10/16 19:00 111 31 108/68 97 Nasal Cannula 3.0 07/10/16 18:00 109 32 102/65 98 Nasal Cannula 3.0 07/10/16 17:00 104 30 98/65 93 Nasal Cannula 3.0 07/10/16 16:00 99.0 98 31 88/53 99 Nasal Cannula 3.0 07/10/16 16:00 102 07/10/16 15:00 107 35 99/57 100 Nasal Cannula 3.0 07/10/16 14:00 103 30 109/77 100 Nasal Cannula 3.0 07/10/16 13:00 98 34 106/77 100 Nasal Cannula 3.0 07/10/16 12:00 103 07/10/16 12:00 98.0 98 29 102/68 100 Nasal Cannula 3.0 07/10/16 11:00 98.1 98 29 94/61 100 Nasal Cannula 3.0 07/10/16 10:00 103 07/10/16 10:00 Nasal Cannula 3.0 32 07/10/16 10:00 100 Nasal Cannula 3.0 32 07/10/16 10:00 103 98/58 07/10/16 10:00 98.5 103 30 98/66 100 Nasal Cannula 3.0 07/10/16 09:23 114 100/67 Height (Feet): 6 Height (Inches): 1.00 Weight (Pounds): 182 General Appearance: no acute distress HEENT: other - Hhitish tongue Respiratory/Chest: lungs clear, other - O2 by cannula Cardiovascular: normal rate Abdomen: soft, non tender Extremities: no edema Neurologic/Psychiatric: alert, responsive Microbiology Date/Time Source Procedure Growth Status 07/09/16 18:40 Blood Blood Culture - Preliminary Staphylococcus Sp Coag Neg Resulted 07/09/16 18:25 Blood Blood Culture - Preliminary Staphylococcus Sp Coag Neg Resulted 07/09/16 18:40 Nasal Nares Influenza Types A,B Antigen (AIDAN) - Final Complete Laboratory Tests Test 07/10/16 13:50 07/10/16 22:50 07/11/16 05:30 Lactic Acid Level 4.90 mmol/L (0.66-2.22) H 3.20 mmol/L (0.66-2.22) H 1.40 mmol/L (0.66-2.22) Troponin I 14.84 ng/mL (<=0.30) *H 5.53 ng/mL (<=0.30) *H 9.11 ng/mL (<=0.30) *H Legionella pneumophila Group 1 Ab Pending Legionella pneumophilia IgM Group 1 Pending Mycoplasma pneumoniae IgG Antibody Pending Mycoplasma pneumoniae IgM Ab Titer Pending White Blood Count 12.2 K/UL (4.8-10.8) #H 13.2 K/UL (4.8-10.8) H Red Blood Count 3.69 M/UL (4.70-6.10) L 3.71 M/UL (4.70-6.10) L Hemoglobin 12.1 G/DL (14.2-18.0) L 12.4 G/DL (14.2-18.0) L Hematocrit 37.4 % (42.0-52.0) L 36.9 % (42.0-52.0) L Mean Corpuscular Volume 101 FL (80-99) H 100 FL (80-99) H Mean Corpuscular Hemoglobin 32.9 PG (27.0-31.0) H 33.5 PG (27.0-31.0) H Mean Corpuscular Hemoglobin Concent 32.5 G/DL (32.0-36.0) 33.7 G/DL (32.0-36.0) Red Cell Distribution Width 13.5 % (11.6-14.8) 13.1 % (11.6-14.8) Platelet Count 71 K/UL (150-450) L 91 K/UL (150-450) L Mean Platelet Volume 10.7 FL (6.5-10.1) H 11.6 FL (6.5-10.1) H Neutrophils (%) (Auto) 81.1 % (45.0-75.0) H % (45.0-75.0) Lymphocytes (%) (Auto) 9.6 % (20.0-45.0) L % (20.0-45.0) Monocytes (%) (Auto) 8.6 % (1.0-10.0) % (1.0-10.0) Eosinophils (%) (Auto) 0.0 % (0.0-3.0) % (0.0-3.0) Basophils (%) (Auto) 0.7 % (0.0-2.0) % (0.0-2.0) Sodium Level 139 mEQ/L (135-145) 137 mEQ/L (135-145) Potassium Level 3.6 mEQ/L (3.4-4.9) 4.3 mEQ/L (3.4-4.9) Chloride Level 105 mEQ/L (98-107) 106 mEQ/L (98-107) Carbon Dioxide Level 17 mEQ/L (20-30) L 17 mEQ/L (20-30) L Anion Gap 17 (5-15) H 14 (5-15) Blood Urea Nitrogen 23 mg/dL (7-23) 27 mg/dL (7-23) H Creatinine 1.2 mg/dL (0.7-1.2) 1.3 mg/dL (0.7-1.2) H Estimat Glomerular Filtration Rate mL/min (>60) mL/min (>60) Glucose Level 124 mg/dL (74-106) H 135 mg/dL (74-106) H Hemoglobin A1c 4.8 % (< 6.0) Calcium Level 6.6 mg/dL (8.6-10.2) #L 7.7 mg/dL (8.6-10.2) L Phosphorus Level 2.1 mg/dL (2.5-4.8) L Magnesium Level 0.9 mg/dL (1.7-2.5) *L 1.9 mg/dL (1.7-2.5) Total Bilirubin 1.1 mg/dL (0.0-1.2) 1.3 mg/dL (0.0-1.2) H Direct Bilirubin 0.7 mg/dL (0.1-0.3) H 0.7 mg/dL (0.1-0.3) H Aspartate Amino Transf (AST/SGOT) 112 U/L (5-40) H 118 U/L (5-40) H Alanine Aminotransferase (ALT/SGPT) 41 U/L (3-41) 43 U/L (3-41) H Alkaline Phosphatase 48 U/L (40-129) 48 U/L (40-129) Pro-B-Type Natriuretic Peptide 87891 pg/mL (0-450) H 76106 pg/mL (0-450) H Total Protein 4.7 g/dL (6.6-8.7) L 5.3 g/dL (6.6-8.7) L Albumin 2.5 g/dL (3.5-5.2) L 2.6 g/dL (3.5-5.2) L Globulin 2.2 g/dL 2.7 g/dL Albumin/Globulin Ratio 1.1 (1.0-2.7) 0.9 (1.0-2.7) L Triglycerides Level 141 mg/dL (< 150) Cholesterol Level 97 mg/dL (< 200) LDL Cholesterol 35 mg/dL (60-99) L HDL Cholesterol 34 mg/dL (> 60) Cholesterol/HDL Ratio 2.9 (3.3-4.4) L Thyroid Stimulating Hormone (TSH) 1.140 uIU/mL (0.300-4.500) Ionized Calcium (Measured) Pending Current Medications Medications (Trade) Dose Ordered Sig/Justina Route PRN Reason Start Time Stop Time Status Last Admin Dose Admin Acetaminophen (Tylenol) 650 mg Q6H PRN ORAL Mild Pain/Temp > 100.5 07/10/16 03:30 08/09/16 03:29 07/10/16 13:38 Al Hydroxide/Mg Hydroxide (Mylanta) 30 ml BID PRN ORAL Nausea & Vomiting 07/10/16 03:45 08/09/16 03:44 Allopurinol (Zyloprim) 100 mg BID@0900,2100 ORAL 07/10/16 09:00 08/09/16 08:59 07/11/16 08:50 Aripiprazole (Abilify) 2.5 mg BEDTIME ORAL 07/10/16 21:00 08/09/16 20:59 07/10/16 22:25 Aspirin (Ecotrin) 81 mg DAILY ORAL 07/10/16 09:00 08/09/16 08:59 07/11/16 08:50 Atorvastatin Calcium (Lipitor) 10 mg BEDTIME ORAL 07/10/16 21:00 08/09/16 20:59 07/10/16 22:25 Azithromycin 500 mg/Dextrose 275 ml @ 275 mls/hr Q24H IV 07/10/16 05:00 07/17/16 04:59 07/11/16 05:37 Cefepime HCl/ Dextrose (Maxipime/D5W) 110 ml @ 220 mls/hr Q12H IV 07/10/16 06:00 07/17/16 05:59 07/11/16 05:37 Dextrose (Dextrose 50%) STAT PRN IV Hypoglycemia 2/14/17 03:15 08/09/16 03:14 Docusate Sodium (Colace) 100 mg BID ORAL 07/10/16 09:00 08/09/16 08:59 07/11/16 08:50 Enoxaparin Sodium (Lovenox) 80 mg EVERY 12 HOURS SUBQ 07/10/16 21:00 08/09/16 20:59 07/11/16 08:52 Insulin Aspart (NovoLOG) BEFORE MEALS AND HS SUBQ 07/10/16 06:30 08/09/16 06:29 07/11/16 06:01 Magnesium Hydroxide (Mom) 30 ml DAILYPRN PRN ORAL Constipation 07/10/16 03:30 08/09/16 03:29 Metformin HCl (Glucophage) 500 mg TID@0800,1200,1700 ORAL 07/10/16 08:00 08/09/16 07:59 07/11/16 08:51 Metoprolol Tartrate (Lopressor) 25 mg Q12HR ORAL 07/10/16 10:00 08/09/16 09:59 07/10/16 22:25 Pantoprazole (Protonix) 40 mg EVERY 12 HOURS IVP 07/10/16 21:00 08/09/16 20:59 07/11/16 08:51 Paroxetine HCl 10 mg 10 mg DAILY ORAL 07/10/16 09:00 08/09/16 08:59 07/11/16 08:50 Sodium Chloride 1,000 ml @ 100 mls/hr Q10H IV 07/10/16 03:45 08/09/16 03:44 07/11/16 00:09 Vancomycin HCl 1 ea 1 ea DAILY PRN MISC Per rx protocol 07/10/16 14:15 08/09/16 14:14 Vancomycin HCl/ Dextrose (Vancomycin/D5W) 275 ml @ 183.708 mls/hr Q24H IVPB 07/10/16 17:00 07/15/16 16:59 07/10/16 17:28 Zolpidem Tartrate (Ambien) 5 mg HSPRN PRN ORAL Insomnia 07/10/16 03:30 08/09/16 03:29 ANA MYRICK Jul 11, 2016 09:01
[2016-07-11] MEDS ORDERED: NS 275ml ONE (15:23)
[2016-07-11] MEDS ORDERED: Tubing IV Secondary IV ONE (15:23)
--- NOTE | 2016-07-11 15:57 | Cardiac Electrophysiology PN ---
Assessment/Plan Assessment/Plan 1. Acute Rfv-OI-[id number] myocardial infarction. Troponin peaked at 14.84 and now down to 9. Echo showed EF 30-35%. Continue aspirin, Plavix, Coreg,Lisinopril and Lipitor . Awaiting transfer to [facility] for cardiac catheterization. DC Lovenox. 2. Ischemic cardiomyopathy with EF 30-35% and BNP > 07790. Add Lisinopril, Lasix and Aldactone to Coreg. 3. Hypertension. Continue on Lopressor 25 mg twice a day. 4. Hyperlipidemia, on Lipitor. 5. Diabetes, on metformin. 6. Left lower lobe pneumonia, On cefepime and azithromycin. RODERICK RN and Dr. Law and [facility]. Subjective Subjective Alert with no chest pain. Off pressors. Troponin came down and went up again. Objective Last 24 Hour Vital Signs Date Time Temp Pulse Resp B/P Pulse Ox O2 Delivery O2 Flow Rate FiO2 07/11/16 15:00 94 29 100/61 99 Nasal Cannula 3.0 07/11/16 14:00 92 30 87/66 98 Nasal Cannula 3.0 07/11/16 13:00 89 30 97/63 95 Nasal Cannula 3.0 07/11/16 12:00 97.1 88 32 94/60 98 Nasal Cannula 3.0 07/11/16 12:00 89 07/11/16 11:07 86 30 90/59 99 Nasal Cannula 3.0 07/11/16 10:00 88 21 90/60 99 Nasal Cannula 3.0 07/11/16 09:00 90 92/58 07/11/16 09:00 92 31 92/58 96 Nasal Cannula 3.0 07/11/16 08:00 86 07/11/16 08:00 97.4 86 30 93/62 99 Nasal Cannula 3.0 07/11/16 07:00 87 34 84/59 33 Nasal Cannula 3.0 07/11/16 06:00 91 34 91/58 33 Nasal Cannula 3.0 07/11/16 05:00 88 34 100/59 99 Nasal Cannula 3.0 07/11/16 04:00 90 07/11/16 04:00 98.3 91 34 84/69 98 Nasal Cannula 3.0 07/11/16 03:00 93 37 93/61 97 Nasal Cannula 3.0 07/11/16 02:00 95 38 90/59 97 Nasal Cannula 3.0 07/11/16 01:00 93 34 100/63 99 Nasal Cannula 3.0 07/11/16 00:00 97 07/11/16 00:00 98.4 99 32 105/69 99 Nasal Cannula 3.0 07/10/16 23:00 103 29 112/66 99 Nasal Cannula 3.0 07/10/16 22:25 107 112/66 07/10/16 22:00 107 29 112/66 99 Nasal Cannula 3.0 07/10/16 21:00 112 29 118/73 99 Nasal Cannula 3.0 07/10/16 20:00 109 07/10/16 20:00 98.4 108 32 110/68 96 Nasal Cannula 3.0 07/10/16 19:00 111 31 108/68 97 Nasal Cannula 3.0 07/10/16 18:00 109 32 102/65 98 Nasal Cannula 3.0 07/10/16 17:00 104 30 98/65 93 Nasal Cannula 3.0 07/10/16 16:00 99.0 98 31 88/53 99 Nasal Cannula 3.0 07/10/16 16:00 102 Intake and Output 07/10/16 07/11/16 19:00 07:00 Intake Total 1695 ml 610 ml Output Total 100 ml Balance 1595 ml 610 ml Intake Oral 120 ml 0 ml IV Total 1575 ml 610 ml Output Urine Total 100 ml # Voids 2 3 # Bowel Movements 1 4 Laboratory Tests Test 07/10/16 22:50 07/11/16 05:30 White Blood Count 12.2 K/UL (4.8-10.8) #H 13.2 K/UL (4.8-10.8) H Red Blood Count 3.69 M/UL (4.70-6.10) L 3.71 M/UL (4.70-6.10) L Hemoglobin 12.1 G/DL (14.2-18.0) L 12.4 G/DL (14.2-18.0) L Hematocrit 37.4 % (42.0-52.0) L 36.9 % (42.0-52.0) L Mean Corpuscular Volume 101 FL (80-99) H 100 FL (80-99) H Mean Corpuscular Hemoglobin 32.9 PG (27.0-31.0) H 33.5 PG (27.0-31.0) H Mean Corpuscular Hemoglobin Concent 32.5 G/DL (32.0-36.0) 33.7 G/DL (32.0-36.0) Red Cell Distribution Width 13.5 % (11.6-14.8) 13.1 % (11.6-14.8) Platelet Count 71 K/UL (150-450) L 91 K/UL (150-450) L Mean Platelet Volume 10.7 FL (6.5-10.1) H 11.6 FL (6.5-10.1) H Neutrophils (%) (Auto) 81.1 % (45.0-75.0) H % (45.0-75.0) Lymphocytes (%) (Auto) 9.6 % (20.0-45.0) L % (20.0-45.0) Monocytes (%) (Auto) 8.6 % (1.0-10.0) % (1.0-10.0) Eosinophils (%) (Auto) 0.0 % (0.0-3.0) % (0.0-3.0) Basophils (%) (Auto) 0.7 % (0.0-2.0) % (0.0-2.0) Sodium Level 139 mEQ/L (135-145) 137 mEQ/L (135-145) Potassium Level 3.6 mEQ/L (3.4-4.9) 4.3 mEQ/L (3.4-4.9) Chloride Level 105 mEQ/L (98-107) 106 mEQ/L (98-107) Carbon Dioxide Level 17 mEQ/L (20-30) L 17 mEQ/L (20-30) L Anion Gap 17 (5-15) H 14 (5-15) Blood Urea Nitrogen 23 mg/dL (7-23) 27 mg/dL (7-23) H Creatinine 1.2 mg/dL (0.7-1.2) 1.3 mg/dL (0.7-1.2) H Estimat Glomerular Filtration Rate mL/min (>60) mL/min (>60) Glucose Level 124 mg/dL (74-106) H 135 mg/dL (74-106) H Hemoglobin A1c 4.8 % (< 6.0) Lactic Acid Level 3.20 mmol/L (0.66-2.22) H 1.40 mmol/L (0.66-2.22) Calcium Level 6.6 mg/dL (8.6-10.2) #L 7.7 mg/dL (8.6-10.2) L Phosphorus Level 2.1 mg/dL (2.5-4.8) L Magnesium Level 0.9 mg/dL (1.7-2.5) *L 1.9 mg/dL (1.7-2.5) Total Bilirubin 1.1 mg/dL (0.0-1.2) 1.3 mg/dL (0.0-1.2) H Direct Bilirubin 0.7 mg/dL (0.1-0.3) H 0.7 mg/dL (0.1-0.3) H Aspartate Amino Transf (AST/SGOT) 112 U/L (5-40) H 118 U/L (5-40) H Alanine Aminotransferase (ALT/SGPT) 41 U/L (3-41) 43 U/L (3-41) H Alkaline Phosphatase 48 U/L (40-129) 48 U/L (40-129) Troponin I 5.53 ng/mL (<=0.30) *H 9.11 ng/mL (<=0.30) *H Pro-B-Type Natriuretic Peptide 30881 pg/mL (0-450) H 28989 pg/mL (0-450) H Total Protein 4.7 g/dL (6.6-8.7) L 5.3 g/dL (6.6-8.7) L Albumin 2.5 g/dL (3.5-5.2) L 2.6 g/dL (3.5-5.2) L Globulin 2.2 g/dL 2.7 g/dL Albumin/Globulin Ratio 1.1 (1.0-2.7) 0.9 (1.0-2.7) L Triglycerides Level 141 mg/dL (< 150) Cholesterol Level 97 mg/dL (< 200) LDL Cholesterol 35 mg/dL (60-99) L HDL Cholesterol 34 mg/dL (> 60) Cholesterol/HDL Ratio 2.9 (3.3-4.4) L Thyroid Stimulating Hormone (TSH) 1.140 uIU/mL (0.300-4.500) Ionized Calcium (Measured) 1.03 mmol/L (1.10-1.35) L Microbiology Date/Time Source Procedure Growth Status 07/09/16 18:40 Blood Blood Culture - Preliminary Staphylococcus Sp Coag Neg Resulted 07/09/16 18:25 Blood Blood Culture - Preliminary Staphylococcus Sp Coag Neg Resulted 07/09/16 18:40 Nasal Nares Influenza Types A,B Antigen (AIDAN) - Final Complete Objective NECK: Shows no JVD. LUNGS: Decreased breath sounds. CARDIOVASCULAR: Regular S1 and S2 with no gallop or murmur. ABDOMEN: Soft. EXTREMITIES: No pitting edema. CHUCKIE VELARDE Jul 11, 2016 15:57
[2016-07-11] MEDS: Heparin 5000 units/ml inj SUBQ SCH (20:24)
--- NOTE | 2016-07-11 22:18 | General Progress Note ---
Assessment/Plan Assessment/Plan acs elevated trop lactiacidosis ? pneumonia htn hld dw Dr Damico, notified [facility] transfer center for transfer for angio dw patiens power of attorney law clerk who agree scheck echo continu with current cardiac meds abx per ID dvt and ulcer prophylaxis awaiting transfer for angiogram to [facility] Subjective Allergies: Coded Allergies: No Known Allergies (Unverified , 10/12/15) Call to [facility], spoke with KALA Fung confirmed paperwork which indicated no known allergies to medications. Subjective denies chest painor sob Objective Last 24 Hour Vital Signs Date Time Temp Pulse Resp B/P Pulse Ox O2 Delivery O2 Flow Rate FiO2 07/11/16 21:00 96 24 114/65 99 Nasal Cannula 3.0 07/11/16 20:23 95 119/66 07/11/16 20:00 98.7 97 25 119/66 99 Nasal Cannula 3.0 07/11/16 20:00 94 07/11/16 19:00 88 25 131/67 99 Nasal Cannula 3.0 07/11/16 18:00 97 26 111/64 99 Nasal Cannula 3.0 07/11/16 17:00 92 07/11/16 17:00 94 29 109/64 99 Nasal Cannula 3.0 07/11/16 16:00 99.1 93 25 112/65 99 Nasal Cannula 3.0 07/11/16 15:00 94 29 100/61 99 Nasal Cannula 3.0 07/11/16 14:00 92 30 87/66 98 Nasal Cannula 3.0 07/11/16 13:00 89 30 97/63 95 Nasal Cannula 3.0 07/11/16 12:00 97.1 88 32 94/60 98 Nasal Cannula 3.0 07/11/16 12:00 89 07/11/16 11:07 86 30 90/59 99 Nasal Cannula 3.0 07/11/16 10:00 88 21 90/60 99 Nasal Cannula 3.0 07/11/16 09:00 90 92/58 07/11/16 09:00 92 31 92/58 96 Nasal Cannula 3.0 07/11/16 08:00 86 07/11/16 08:00 97.4 86 30 93/62 99 Nasal Cannula 3.0 07/11/16 07:00 87 34 84/59 33 Nasal Cannula 3.0 07/11/16 06:00 91 34 91/58 33 Nasal Cannula 3.0 07/11/16 05:00 88 34 100/59 99 Nasal Cannula 3.0 07/11/16 04:00 90 07/11/16 04:00 98.3 91 34 84/69 98 Nasal Cannula 3.0 07/11/16 03:00 93 37 93/61 97 Nasal Cannula 3.0 07/11/16 02:00 95 38 90/59 97 Nasal Cannula 3.0 07/11/16 01:00 93 34 100/63 99 Nasal Cannula 3.0 07/11/16 00:00 97 07/11/16 00:00 98.4 99 32 105/69 99 Nasal Cannula 3.0 07/10/16 23:00 103 29 112/66 99 Nasal Cannula 3.0 07/10/16 22:25 107 112/66 Intake and Output 07/10/16 07/11/16 19:00 07:00 Intake Total 1695 ml 610 ml Output Total 100 ml Balance 1595 ml 610 ml Intake Oral 120 ml 0 ml IV Total 1575 ml 610 ml Output Urine Total 100 ml # Voids 2 3 # Bowel Movements 1 4 Laboratory Tests 07/10/16 22:50: White Blood Count 12.2#H, Red Blood Count 3.69L, Hemoglobin 12.1L, Hematocrit 37.4L, Mean Corpuscular Volume 101H, Mean Corpuscular Hemoglobin 32.9H, Mean Corpuscular Hemoglobin Concent 32.5, Red Cell Distribution Width 13.5, Platelet Count 71L, Mean Platelet Volume 10.7H, Neutrophils (%) (Auto) 81.1H, Lymphocytes (%) (Auto) 9.6L, Monocytes (%) (Auto) 8.6, Eosinophils (%) (Auto) 0.0, Basophils (%) (Auto) 0.7, Sodium Level 139, Potassium Level 3.6, Chloride Level 105, Carbon Dioxide Level 17L, Anion Gap 17H, Blood Urea Nitrogen 23, Creatinine 1.2, Estimat Glomerular Filtration Rate , Glucose Level 124H, Hemoglobin A1c 4.8, Lactic Acid Level 3.20H, Calcium Level 6.6#L, Phosphorus Level 2.1L, Magnesium Level 0.9*L, Total Bilirubin 1.1, Direct Bilirubin 0.7H, Aspartate Amino Transf (AST/SGOT) 112H, Alanine Aminotransferase (ALT/SGPT) 41, Alkaline Phosphatase 48, Troponin I 5.53*H, Pro-B-Type Natriuretic Peptide 55098N, Total Protein 4.7L, Albumin 2.5L, Globulin 2.2, Albumin/Globulin Ratio 1.1, Triglycerides Level 141, Cholesterol Level 97, LDL Cholesterol 35L, HDL Cholesterol 34, Cholesterol/HDL Ratio 2.9L, Thyroid Stimulating Hormone (TSH) 1.140 07/11/16 05:30: White Blood Count 13.2H, Red Blood Count 3.71L, Hemoglobin 12.4L, Hematocrit 36.9L, Mean Corpuscular Volume 100H, Mean Corpuscular Hemoglobin 33.5H, Mean Corpuscular Hemoglobin Concent 33.7, Red Cell Distribution Width 13.1, Platelet Count 91L, Mean Platelet Volume 11.6H, Neutrophils (%) (Auto) , Lymphocytes (%) (Auto) , Monocytes (%) (Auto) , Eosinophils (%) (Auto) , Basophils (%) (Auto) , Sodium Level 137, Potassium Level 4.3, Chloride Level 106, Carbon Dioxide Level 17L, Anion Gap 14, Blood Urea Nitrogen 27H, Creatinine 1.3H, Estimat Glomerular Filtration Rate , Glucose Level 135H, Lactic Acid Level 1.40, Calcium Level 7.7L , Magnesium Level 1.9, Total Bilirubin 1.3H, Direct Bilirubin 0.7H, Aspartate Amino Transf (AST/SGOT) 118H, Alanine Aminotransferase (ALT/SGPT) 43H, Alkaline Phosphatase 48, Troponin I 9.11*H, Pro-B-Type Natriuretic Peptide 24075G, Total Protein 5.3L, Albumin 2.6L, Globulin 2.7, Albumin/Globulin Ratio 0.9L, Ionized Calcium (Measured) 1.03L Height (Feet): 6 Height (Inches): 1.00 Weight (Pounds): 182 General Appearance: WD/WN Neck: supple Cardiovascular: normal rate Respiratory/Chest: lungs clear Abdomen: soft Edema: no edema noted Arm (L), no edema noted Arm (R), no edema noted Leg (L), no edema noted Leg (R), no edema noted Pedal (L), no edema noted Pedal (R), no edema noted Generalized LAURA UNGER Jul 11, 2016 22:18
[2016-07-12] VITALS (18 sets, daily range): BP systolic 91–119; BP diastolic 55–80
[2016-07-12] MEDS: Azithromycin 500mg/D5W 275ml IV SCH ×2 (05:07)
[2016-07-12] MEDS: Cefepime 2gm/D5W 110ml IV SCH ×2 (06:11)
[2016-07-12] MEDS: NovoLOG Insulin Flexpen SUBQ SCH ×2 (06:12→11:27)
[2016-07-12] MEDS ORDERED: Spironolactone 25mg tab ORAL SCH (09:00)
[2016-07-12] MEDS ORDERED: Lisinopril 10mg tab ORAL SCH (09:00)
[2016-07-12] MEDS: metFORMIN 500mg tab ORAL SCH ×2 (09:13→11:27)
[2016-07-12] MEDS: Pantoprazole Inj IVP SCH (09:13)
[2016-07-12] MEDS: PARoxetine 10mg tab ORAL SCH (09:14)
[2016-07-12] MEDS: Aspirin EC 81mg tab ORAL SCH (09:14)
[2016-07-12] MEDS: Docusate 100mg cap ORAL SCH (09:14)
[2016-07-12] MEDS: Allopurinol 100mg Tab ORAL SCH (09:15)
--- NOTE | 2016-07-12 09:15 | Infectious Diseases Prog Note ---
Assessment/Plan Assessment/Plan A: Sepsis Pneumonia Non ST WI DM HPN Positive blood culture, contamination DVT of leg P: Continue Cefepime & Zithromax waiting for transfer for angiography Subjective ROS Limited/Unobtainable: Yes Musculoskeletal: Reports: no symptoms Allergies: Coded Allergies: No Known Allergies (Unverified , 10/12/15) Call to [facility], spoke with KALA Fung confirmed paperwork which indicated no known allergies to medications. Objective Vital Signs Last 24 Hour Vital Signs Date Time Temp Pulse Resp B/P Pulse Ox O2 Delivery O2 Flow Rate FiO2 07/12/16 07:00 83 33 91/58 100 Nasal Cannula 3.0 07/12/16 06:00 93 31 93/60 100 Nasal Cannula 3.0 07/12/16 05:00 90 30 97/62 100 Nasal Cannula 3.0 07/12/16 04:00 93 07/12/16 04:00 98.9 92 31 97/62 100 Room Air 07/12/16 03:00 95 31 107/67 100 Nasal Cannula 3.0 07/12/16 02:00 96 31 109/69 100 Nasal Cannula 3.0 07/12/16 01:00 98 32 107/70 92 Nasal Cannula 3.0 07/12/16 00:00 99.1 97 34 119/72 96 Room Air 07/12/16 00:00 99 07/11/16 23:00 98 24 113/64 99 Nasal Cannula 3.0 07/11/16 22:00 97 24 119/68 99 Nasal Cannula 3.0 07/11/16 21:00 96 24 114/65 99 Nasal Cannula 3.0 07/11/16 20:23 95 119/66 07/11/16 20:00 98.7 97 25 119/66 99 Nasal Cannula 3.0 07/11/16 20:00 94 07/11/16 19:00 Room Air 07/11/16 19:00 98 Room Air 21 07/11/16 19:00 88 25 131/67 99 Nasal Cannula 3.0 07/11/16 18:00 97 26 111/64 99 Nasal Cannula 3.0 07/11/16 17:00 92 07/11/16 17:00 94 29 109/64 99 Nasal Cannula 3.0 07/11/16 16:00 99.1 93 25 112/65 99 Nasal Cannula 3.0 07/11/16 15:00 94 29 100/61 99 Nasal Cannula 3.0 07/11/16 14:00 92 30 87/66 98 Nasal Cannula 3.0 07/11/16 13:00 89 30 97/63 95 Nasal Cannula 3.0 07/11/16 12:00 97.1 88 32 94/60 98 Nasal Cannula 3.0 07/11/16 12:00 89 07/11/16 11:07 86 30 90/59 99 Nasal Cannula 3.0 07/11/16 10:00 88 21 90/60 99 Nasal Cannula 3.0 Height (Feet): 6 Height (Inches): 1.00 Weight (Pounds): 182 HEENT: mucous membranes moist Respiratory/Chest: lungs clear, other - breathing fast Cardiovascular: normal rate Abdomen: soft, non tender Extremities: no edema Neurologic/Psychiatric: alert, responsive Microbiology Date/Time Source Procedure Growth Status 07/09/16 18:40 Blood Blood Culture - Final Staphylococcus Sp Coag Neg Complete 07/09/16 18:25 Blood Blood Culture - Final Staphylococcus Sp Coag Neg Complete 07/11/16 06:00 Sputum Gram Stain Pending Resulted 07/11/16 06:00 Sputum Sputum Culture - Preliminary NORMAL UPPER RESPIRATORY XAVI PRESENT Resulted 07/09/16 18:40 Nasal Nares Influenza Types A,B Antigen (AIDAN) - Final Complete Current Medications Medications (Trade) Dose Ordered Sig/Justina Route PRN Reason Start Time Stop Time Status Last Admin Dose Admin Acetaminophen (Tylenol) 650 mg Q6H PRN ORAL Mild Pain/Temp > 100.5 07/10/16 03:30 08/09/16 03:29 07/10/16 13:38 Al Hydroxide/Mg Hydroxide (Mylanta) 30 ml BID PRN ORAL Nausea & Vomiting 07/10/16 03:45 08/09/16 03:44 Allopurinol (Zyloprim) 100 mg BID@0900,2100 ORAL 07/10/16 09:00 08/09/16 08:59 07/11/16 20:22 Aripiprazole (Abilify) 2.5 mg BEDTIME ORAL 07/10/16 21:00 08/09/16 20:59 07/11/16 20:25 Aspirin (Ecotrin) 81 mg DAILY ORAL 07/10/16 09:00 08/09/16 08:59 07/11/16 08:50 Atorvastatin Calcium (Lipitor) 10 mg BEDTIME ORAL 07/10/16 21:00 08/09/16 20:59 07/11/16 20:23 Azithromycin 500 mg/Dextrose 275 ml @ 275 mls/hr Q24H IV 07/10/16 05:00 07/17/16 04:59 07/12/16 05:07 Carvedilol (Coreg) 3.125 mg EVERY 12 HOURS ORAL 07/11/16 21:00 08/10/16 20:59 07/11/16 20:23 Cefepime HCl/ Dextrose (Maxipime/D5W) 110 ml @ 220 mls/hr Q12H IV 07/10/16 06:00 07/17/16 05:59 07/12/16 06:11 Dextrose (Dextrose 50%) STAT PRN IV Hypoglycemia 07/10/16 03:15 08/09/16 03:14 Docusate Sodium (Colace) 100 mg BID ORAL 07/10/16 09:00 08/09/16 08:59 07/11/16 17:52 Furosemide (Lasix) 40 mg DAILY IV 07/12/16 09:00 08/11/16 08:59 Heparin Sodium (Porcine) (Heparin 5000 units/ml) 5,000 units EVERY 12 HOURS SUBQ 07/11/16 21:00 08/10/16 20:59 07/11/16 20:24 Insulin Aspart (NovoLOG) BEFORE MEALS AND HS SUBQ 07/10/16 06:30 08/09/16 06:29 07/12/16 06:12 Lisinopril (Zestril) 10 mg DAILY ORAL 07/12/16 09:00 08/11/16 08:59 Magnesium Hydroxide (Mom) 30 ml DAILYPRN PRN ORAL Constipation 07/10/16 03:30 08/09/16 03:29 Metformin HCl (Glucophage) 500 mg TID@0800,1200,1700 ORAL 07/10/16 08:00 08/09/16 07:59 07/11/16 17:52 Pantoprazole (Protonix) 40 mg EVERY 12 HOURS IVP 07/10/16 21:00 08/09/16 20:59 07/11/16 20:23 Paroxetine HCl 10 mg 10 mg DAILY ORAL 07/10/16 09:00 08/09/16 08:59 07/11/16 08:50 Sodium Chloride 1,000 ml @ 100 mls/hr Q10H IV 07/10/16 03:45 08/09/16 03:44 07/12/16 05:06 Spironolactone (Aldactone) 25 mg DAILY ORAL 07/12/16 09:00 08/11/16 08:59 Zolpidem Tartrate (Ambien) 5 mg HSPRN PRN ORAL Insomnia 07/10/16 03:30 08/09/16 03:29 ANA MYRICK Jul 12, 2016 09:15
[2016-07-12] MEDS: Heparin 5000 units/ml inj SUBQ SCH (09:19)
[2016-07-12 09:40] LABS: MEAN CORPUSCULAR HEMOGLOBIN 35.6 PG (27.0-31.0); MEAN CORPUSCULAR VOLUME 99 FL (80-99); MEAN PLATELET VOLUME 8.9 FL (6.5-10.1); PLATELET COUNT 86 K/UL (150-450); RED CELL DISTRIBUTION WIDTH 13.6 % (11.6-14.8); WHITE BLOOD COUNT 10.9 K/UL (4.8-10.8)
[2016-07-12 09:48] LABS: ANION GAP 18 (5-15); CALCIUM 7.5 mg/dL (8.6-10.2); CARBON DIOXIDE 17 mEQ/L (20-30); CHLORIDE 101 mEQ/L (98-107); CREATININE 1.4 mg/dL (0.7-1.2); HEMOLYSIS 67; POTASSIUM 4.6 mEQ/L (3.4-4.9); SODIUM 136 mEQ/L (135-145)
[2016-07-12 09:50] LABS: TROPONIN I 2.57 ng/mL (<=0.30)
[2016-07-12 10:17] LABS: BAND NEUTROPHILS % (MANUAL) 0 % (0-8); BASOPHILS % (MANUAL) 1 % (0-2); EOSINOPHILS % (MANUAL) 1 % (0-3); LYMPHOCYTES % (MANUAL) 6 % (20-45); NEUTROPHILS % (MANUAL) 82 % (45-75); PLATELET ESTIMATE DECREASED; PLATELET MORPHOLOGY NORMAL; TOTAL CELLS COUNTED 100
--- NOTE | 2016-07-12 10:45 | Cardiology Report ---
APPROVED REPORT EXAM: Two-dimensional and M-mode echocardiogram with Doppler and color Doppler. INDICATION Tachycardia Technically difficult study due to poor acoustic windows. M-mode measurements not obtainable due to cardiac structure. Normal left ventricular chamber size. Global left ventricular hypokinesis. Abnormal septal motion. Left ventricular ejection fraction estimated to be 30-35%. No evidence of left ventricular hypertrophy. No evidence of pericardial fat or effusion. All other cardiac chamber sizes are within normal limits. Focal aortic valve sclerosis with adequate cusp excursion Mildly thickened mitral valve leaflets with normal excursion. Mild mitral annulus and aortic root calcification. Pulmonic valve not well visualized. Normal tricuspid valve structure. IVC is normal in size with physiologic collapse. A color flow and spectral Doppler study was performed and revealed: No aortic regurgitation. No mitral regurgitation. Left ventricular diastolic dysfunction grade 1. No tricuspid regurgitation.
--- NOTE | 2016-07-12 14:43 | Cardiac Electrophysiology PN ---
Assessment/Plan Assessment/Plan 1. Acute [id number] myocardial infarction. Troponin peaked at 14.84 and now down to 2. Echo showed EF 30-35%. Continue aspirin, Plavix, Coreg, Lisinopril and Lipitor . Awaiting transfer to [facility] for cardiac catheterization. 2. Ischemic cardiomyopathy with EF 30-35% and BNP > 23772.On Lisinopril, Lasix, Aldactone to Coreg. 3. Hypertension. Continue Lopressor 25 mg twice a day. 4. Hyperlipidemia, on Lipitor. 5. Diabetes, on metformin. 6. Left lower lobe pneumonia, On cefepime and azithromycin. RODERICK RN and Dr. Law and [facility]. Subjective Subjective Alert with no chest pain.In ICU. Objective Last 24 Hour Vital Signs Date Time Temp Pulse Resp B/P Pulse Ox O2 Delivery O2 Flow Rate FiO2 07/12/16 14:02 80 25 92/55 100 Nasal Cannula 3.0 07/12/16 13:05 91 25 100/61 97 Nasal Cannula 3.0 07/12/16 12:00 97.3 87 25 99/61 99 Nasal Cannula 3.0 07/12/16 12:00 75 07/12/16 11:10 77 22 115/80 100 Nasal Cannula 3.0 07/12/16 10:00 84 31 118/69 100 Nasal Cannula 3.0 07/12/16 09:14 106/66 07/12/16 09:14 81 106/66 07/12/16 09:00 82 29 106/66 100 Nasal Cannula 3.0 07/12/16 08:00 93 07/12/16 08:00 98.1 84 30 100/62 100 Nasal Cannula 3.0 07/12/16 07:00 83 33 91/58 100 Nasal Cannula 3.0 07/12/16 06:00 93 31 93/60 100 Nasal Cannula 3.0 07/12/16 05:00 90 30 97/62 100 Nasal Cannula 3.0 07/12/16 04:00 93 07/12/16 04:00 98.9 92 31 97/62 100 Room Air 07/12/16 03:00 95 31 107/67 100 Nasal Cannula 3.0 07/12/16 02:00 96 31 109/69 100 Nasal Cannula 3.0 07/12/16 01:00 98 32 107/70 92 Nasal Cannula 3.0 07/12/16 00:00 99.1 97 34 119/72 96 Room Air 07/12/16 00:00 99 07/11/16 23:00 98 24 113/64 99 Nasal Cannula 3.0 07/11/16 22:00 97 24 119/68 99 Nasal Cannula 3.0 07/11/16 21:00 96 24 114/65 99 Nasal Cannula 3.0 07/11/16 20:23 95 119/66 07/11/16 20:00 98.7 97 25 119/66 99 Nasal Cannula 3.0 07/11/16 20:00 94 07/11/16 19:00 Room Air 07/11/16 19:00 98 Room Air 21 07/11/16 19:00 88 25 131/67 99 Nasal Cannula 3.0 07/11/16 18:00 97 26 111/64 99 Nasal Cannula 3.0 07/11/16 17:00 92 07/11/16 17:00 94 29 109/64 99 Nasal Cannula 3.0 07/11/16 16:00 99.1 93 25 112/65 99 Nasal Cannula 3.0 07/11/16 15:00 94 29 100/61 99 Nasal Cannula 3.0 Intake and Output 07/11/16 07/12/16 19:00 07:00 Intake Total 1690 ml 1110 ml Balance 1690 ml 1110 ml Intake Oral 490 ml 100 ml IV Total 1200 ml 1010 ml # Voids 1 4 # Bowel Movements 1 Laboratory Tests Test 07/12/16 09:10 White Blood Count 10.9 K/UL (4.8-10.8) H Red Blood Count 3.60 M/UL (4.70-6.10) L Hemoglobin 12.8 G/DL (14.2-18.0) L Hematocrit 35.6 % (42.0-52.0) L Mean Corpuscular Volume 99 FL (80-99) Mean Corpuscular Hemoglobin 35.6 PG (27.0-31.0) H Mean Corpuscular Hemoglobin Concent 36.0 G/DL (32.0-36.0) Red Cell Distribution Width 13.6 % (11.6-14.8) Platelet Count 86 K/UL (150-450) L Mean Platelet Volume 8.9 FL (6.5-10.1) Neutrophils (%) (Auto) % (45.0-75.0) Lymphocytes (%) (Auto) % (20.0-45.0) Monocytes (%) (Auto) % (1.0-10.0) Eosinophils (%) (Auto) % (0.0-3.0) Basophils (%) (Auto) % (0.0-2.0) Differential Total Cells Counted 100 Neutrophils % (Manual) 82 % (45-75) H Lymphocytes % (Manual) 6 % (20-45) L Monocytes % (Manual) 10 % (1-10) Eosinophils % (Manual) 1 % (0-3) Basophils % (Manual) 1 % (0-2) Band Neutrophils 0 % (0-8) Platelet Estimate Decreased L Platelet Morphology Normal Red Blood Cell Morphology Normal Sodium Level 136 mEQ/L (135-145) Potassium Level 4.6 mEQ/L (3.4-4.9) Chloride Level 101 mEQ/L (98-107) Carbon Dioxide Level 17 mEQ/L (20-30) L Anion Gap 18 (5-15) H Blood Urea Nitrogen 31 mg/dL (7-23) H Creatinine 1.4 mg/dL (0.7-1.2) H Estimat Glomerular Filtration Rate mL/min (>60) Glucose Level 106 mg/dL (74-106) Calcium Level 7.5 mg/dL (8.6-10.2) L Troponin I 2.57 ng/mL (<=0.30) *H Pro-B-Type Natriuretic Peptide 43187 pg/mL (0-450) H Microbiology Date/Time Source Procedure Growth Status 07/09/16 18:40 Blood Blood Culture - Final Staphylococcus Sp Coag Neg Complete 07/09/16 18:25 Blood Blood Culture - Final Staphylococcus Sp Coag Neg Complete 07/11/16 06:00 Sputum Gram Stain - Final Resulted 07/11/16 06:00 Sputum Sputum Culture - Preliminary NORMAL UPPER RESPIRATORY XAVI PRESENT Resulted 07/09/16 18:40 Nasal Nares Influenza Types A,B Antigen (AIDAN) - Final Complete Objective NECK: Shows no JVD. LUNGS: Decreased breath sounds. CARDIOVASCULAR: Regular S1 and S2 with no gallop or murmur. ABDOMEN: Soft. EXTREMITIES: No pitting edema. CHUCKIE VELARDE Jul 12, 2016 14:43
[2016-07-12] MEDS ORDERED: Metoprolol 25mg tab ORAL SCH (15:45)
[2016-07-12] MEDS ORDERED: Cefepime HCl 2 GM in D5W 110 ML IV SCH (15:45)
[2016-07-12] MEDS ORDERED: metFORMIN 500mg tab ORAL SCH (17:00)
[2016-07-12] MEDS ORDERED: NovoLOG Insulin Flexpen SUBQ SCH (17:00)
[2016-07-12 17:23] LABS: MEAN CORPUSCULAR HEMOGLOBIN 34.6 PG (27.0-31.0); MEAN CORPUSCULAR HGB CONC 34.4 G/DL (32.0-36.0); MEAN CORPUSCULAR VOLUME 101 FL (80-99); MEAN PLATELET VOLUME 10.5 FL (6.5-10.1); PLATELET COUNT 90 K/UL (150-450); RED BLOOD COUNT 3.21 M/UL (4.70-6.10); RED CELL DISTRIBUTION WIDTH 13.3 % (11.6-14.8); WHITE BLOOD COUNT 8.7 K/UL (4.8-10.8)
[2016-07-12 17:29] LABS: ANION GAP 16 (5-15); CALCIUM 7.4 mg/dL (8.6-10.2); CARBON DIOXIDE 17 mEQ/L (20-30); CHLORIDE 105 mEQ/L (98-107); CREATININE 1.4 mg/dL (0.7-1.2); HEMOLYSIS 4; POTASSIUM 4.5 mEQ/L (3.4-4.9); SODIUM 138 mEQ/L (135-145)
[2016-07-12 17:31] LABS: EOSINOPHILS % (AUTO) 0.9 % (0.0-3.0); LYMPHOCYTES % (AUTO) 6.7 % (20.0-45.0); MONOCYTES % (AUTO) 8.2 % (1.0-10.0); NEUTROPHILS % (AUTO) 83.3 % (45.0-75.0)
[2016-07-12 17:32] LABS: TROPONIN I 6.34 ng/mL (<=0.30)
[2016-07-12] MEDS ORDERED: Docusate 100mg cap ORAL SCH (18:00)
[2016-07-12] MEDS ORDERED: Heparin 5000 units/ml inj SUBQ SCH (21:00)
[2016-07-12] MEDS ORDERED: Allopurinol 100mg Tab ORAL SCH (21:00)
[2016-07-13] MEDS ORDERED: Zolpidem 5mg tab ORAL PRN (03:30)
[2016-07-13] MEDS ORDERED: Milk of Magnesia 30ml Ud ORAL PRN (03:30)
[2016-07-13] MEDS ORDERED: Azithromycin 500 MG in D5W 275 ML IV SCH (05:00)
[2016-07-13] MEDS ORDERED: Cefepime HCl 2 GM in D5W 110 ML IV SCH (06:00)
[2016-07-13] MEDS ORDERED: Cefepime 2gm/D5W 110ml IV SCH ×2 (06:00)
[2016-07-13] MEDS ORDERED: PARoxetine 10mg tab ORAL SCH (09:00)
[2016-07-13] MEDS ORDERED: Lisinopril 10mg tab ORAL SCH (09:00)
[2016-07-13] MEDS ORDERED: Spironolactone 25mg tab ORAL SCH (09:00)
[2016-07-13] MEDS ORDERED: Aspirin EC 81mg tab ORAL SCH (09:00)
[2016-07-13 09:14] LABS: L.PNEUMOPHILIA IGM SERO-1 < 1:16 (< 1:16); L.PNEUMOPHILIA SERO-1 <0.91 OD ratio (0.00-0.90); MYCOPLASMA PNEUMONIAE AB IGG 236 U/mL (0-99); MYCOPLASMA PNEUMONIAE AB IGM <770 U/mL (0-769)
--- NOTE | 2016-07-13 11:09 | Discharge Summary ---
Discharge Summary Hospital Course Date of Admission Jul 09, 2016 at 20:58 Date of Discharge Jul 12, 2016 at 19:04 Admitting Diagnosis Sepsis HPI Elian Beltran is a 80 year old male who was admitted on Jul 09, 2016 at 20:58 for Sepsis Hospital Course [id number] Discharge Discharge Disposition Patient was discharged to Acute Care Facility(02) Discharge Diagnoses: Molly Theodore NP Jul 13, 2016 11:09
--- NOTE | 2016-07-13 12:00 | Cardiology Report ---
APPROVED REPORT EKG Measurement Heart [id number] DC [id number] Sinus tachycardia Abnormal ECG
--- NOTE | 2016-07-13 21:47 | Diagnostic Imaging Report ---
APPROVED REPORT CPT Code: 53509 Present Symptoms Lower Extremity Edema: Bilateral Shortness of breath RIGHT LEG: Venous imaging reveals acute thrombus in the superficial femoral vein. Imaging also reveals chronic thrombus in the common femoral and popliteal veins. Remainder of the deep venous system within normal limits. No evidence of thrombus in the calf veins. Greater saphenous vein also within normal limits. LEFT LEG: Venous imaging reveals a patent deep venous system. There is no evidence of thrombus within the femoral, popliteal or tibial segments. The greater saphenous vein is also within normal limits. Doppler indicates normal spontaneous flow within these segments. GABBY Minor was notified of abnormal results at 1510
--- NOTE | 2016-07-13 22:00 | Discharge Summary 2 SIG ---
DATE OF ADMISSION: 07/09/2016 DATE OF DISCHARGE: 07/12/2016 CONSULTANTS: 1. Bebo Damico M.D. 2. Artemio Suero M.D. 3. Juve Lopez M.D. BRIEF HOSPITAL COURSE: The patient is an unfortunate 80-year-old gentleman with history of diabetes, history of CVA, with right-sided hemiparesis, history of hypertension, and hyperlipidemia presented to emergency room complaining of generalized weakness for the past several days and had difficulty getting out of bed. On evaluation at ED, he was noted to have left lower lobe infiltrate as well as elevated lactic acid. He was initially admitted to a monitored bed and was started on antibiotics and IV fluids. Initial troponin was negative. Subsequent troponin was elevated. The patient was transferred to ICU and was started on beta k[place] and aspirin. Dr. Damico was consulted. CT of the chest abdomen and pelvis showed left lower lobe consolidation suggestive of pneumonia. EKG showed sinus tachycardia with left atrial enlargement and marked ST abnormalities suggestive of subendocardial injury. Troponin was rising. He was given aspirin, Plavix, Lopressor, and Lipitor. Discontinued amlodipine. Dr. Suero was consulted for antibiotic management of pneumonia and the patient was given cefepime and azithromycin while awaiting the culture results. An echocardiogram done showed ejection fraction 30% to 35% with EF 30% to 35% and BNP is elevated. He was continued on aspirin, Plavix, Coreg, lisinopril, and Lipitor and was placed on Lopressor 25 mg b.i.d. The patient was eventually transferred to [facility] for cardiac catheterization. FINAL DIAGNOSES: 1. Acute non-ST elevated myocardial infarction. 2. Acute pneumonia. 3. Ischemic cardiomyopathy. 4. Hypertension. 5. Hyperlipidemia. 6. Diabetes. 7. Lactic acidosis. Pedro Law M.D. I have been assigned to dictate discharge summary on this account and I was not involved in the patient's management. Molly Theodore N.P. DR: JANEEN JOB#: [id number] CC: HARSHA
== END 2016-07-12 19:04 | disposition short-term general hospital (02) | DRG 193 ==
LOC: EDBD 18:22 → EMR 19:19 → EDBEDREQ 20:55 → 2W 20:58 → EDBEDREQ 21:13 → 2W 23:30 → ICU 07-10 10:03 → 2E 07-12 15:52
DX: J18.9 Pneumonia, unspecified organism (principal); I21.4 Non-ST elevation (NSTEMI) myocardial infarction; N17.9 Acute kidney failure, unspecified; I69.951 Hemiplegia and hemiparesis following unspecified cerebrovascular disease affecting right dominant side; I10 Essential (primary) hypertension; I25.10 Atherosclerotic heart disease of native coronary artery without angina pectoris; M19.90 Unspecified osteoarthritis, unspecified site; E11.9 Type 2 diabetes mellitus without complications; M10.9 Gout, unspecified; E78.5 Hyperlipidemia, unspecified; I25.5 Ischemic cardiomyopathy; Z88.0 Allergy status to penicillin; Z99.3 Dependence on wheelchair; Z87.891 Personal history of nicotine dependence
CPT/HCPCS: 36415; 71010; 71250; 74176; 80048; 80053; 80061; 81003; 82248; 82330; 82550; 82553; 82962; 83036; 83605; 83735; 83880; 84100; 84443; 84484; 85007; 85025; 86710; 86713; 86738; 87040; 87070; 87181; 87205; 93005; 93306; 93970; 94760; J1815

== ENCOUNTER 2017-07-31 08:00 | Inpatient (IN) | payer MEDICARE, OTHER ==
[~2017-07-31] VITALS: Ht 185.4 cm; Wt 77.1 kg
[2017-07-31] MEDS ORDERED: DIOVAN80 MG ORAL (08:05)
[2017-07-31 08:45] LABS: HEMATOCRIT 44.6 % (42.0-52.0); HEMOGLOBIN 14.7 G/DL (14.2-18.0); MEAN CORPUSCULAR VOLUME 99 FL (80-99); PLATELET COUNT 145 K/UL (150-450); RED BLOOD COUNT 4.49 M/UL (4.70-6.10); RED CELL DISTRIBUTION WIDTH 12.1 % (11.6-14.8); WHITE BLOOD COUNT 4.7 K/UL (4.8-10.8)
[2017-07-31 08:54] VITALS: BP 106/49
[2017-07-31 09:01] LABS: ANION GAP 7 mmol/L (5-15); BLOOD UREA NITROGEN 35 mg/dL (7-18); CARBON DIOXIDE 25 MMOL/L (21-32); CHLORIDE 104 MMOL/L (98-107); CREATININE 1.8 MG/DL (0.55-1.30); POTASSIUM 4.7 MMOL/L (3.5-5.1); SODIUM 136 MMOL/L (136-145)
--- NOTE | 2017-07-31 09:10 | Emergency Room Report ---
History of Present Illness General Chief Complaint: Generalized Weakness Source: Patient, Medical Record, EMS Present Illness HPI 81-year-old male presents ED for evaluation. Patient brought in by EMS for generalized weakness. States feeling weak for 1 week now. Febrile in triage. Patient states he has a cough. Productive with yellowish phlegm. Denies chest pain or shortness of breath. Denies dysuria hematuria. Denies nausea or vomiting. No other aggravating or relieving factors. Denies any other associated symptoms Allergies: Coded Allergies: No Known Allergies (Unverified , 10/12/15) Call to [facility], spoke with KALA Fung confirmed paperwork which indicated no known allergies to medications. Patient History Past Medical History: DM, HTN, CVA/TIA Past Surgical History: none Pertinent Family History: none Social History: Denies: smoking, alcohol use, drug use Immunizations: UTD Reviewed Nursing Documentation: PMH: Agreed, PSxH: Agreed Nursing Documentation-PMH Past Medical History: No History, Except For Hx Hypertension: Yes Hx Diabetes: Yes Hx Cancer: No Hx Gastrointestinal Problems: No Hx Neurological Problems: Yes Hx Cerebrovascular Accident: Yes Review of Systems All Other Systems: negative except mentioned in HPI Physical Exam Vital Signs Date Time Temp Pulse Resp B/P (MAP) Pulse Ox O2 Delivery O2 Flow Rate FiO2 07/31/17 07:54 98.4 74 18 122/74 99 Room Air 98.4 Sp02 EP Interpretation: reviewed, normal General Appearance: no apparent distress, alert, GCS 15, non-toxic Head: normocephalic, atraumatic Eyes: bilateral eye normal inspection, bilateral eye PERRL ENT: hearing grossly normal, normal pharynx, no angioedema, normal voice Neck: full range of motion, supple/symm/no masses Respiratory: chest non-tender, crackles, speaking full sentences Cardiovascular #1: regular rate, rhythm, no edema Cardiovascular #2: 2+ carotid (R), 2+ carotid (L), 2+ radial (R), 2+ radial (L) , 2+ dorsalis pedis (R), 2+ dorsalis pedis (L) Gastrointestinal: normal bowel sounds, non tender, soft, non-distended, no guarding, no rebound Rectal: deferred Genitourinary: normal inspection, no CVA tenderness Musculoskeletal: back normal, gait/station normal, normal range of motion, non- tender Neurologic: alert, oriented x3, responsive, motor strength/tone normal, sensory intact, speech normal Psychiatric: judgement/insight normal, memory normal, mood/affect normal, no suicidal/homicidal ideation Reflexes: 3+ bicep (R), 3+ bicep (L), 3+ tricep (R), 3+ tricep (L), 3+ knee (R) , 3+ knee (L) Skin: normal color, no rash, warm/dry, well hydrated Lymphatic: no adenopathy Medical Decision Making Diagnostic Impression: Primary Impression: Pneumonia Qualified Codes: J18.1 - Lobar pneumonia, unspecified organism Additional Impressions: Episode of generalized weakness Dehydration Sepsis Qualified Codes: A41.9 - Sepsis, unspecified organism ER Course Hospital Course 81-year-old M presenting to ED with weakness, fever Differential diagnoses include: Pneumonia, CHF exacerbation, pneumothorax, fluid overload Clinical course Patient placed on stretcher. On cardiac cath rn. After initial history and physical I ordered labs, IV fluids, EKG, chest x-ray, blood cultures, UA. Labs -leukopenia noted, hemoglobin/hematocrit stable, BUN/Cr elevated, lactate elevated, troponins negative CXR - R lower lobe infiltrate EKG - NSR, no acute ischemic changes interpreted by me Given IV fluids. Given antibiotics Case discussed with Dr. Law and he agreed to the patient to his service for further care and support I feel this is a highly complex case requiring extensive working including EKG/ Rhythm strip, Xray/CT/US, Blood/urine lab work, repeat exams while in ED, and administration of strong opiates/narcotics for pain control, admission to hospital or close patient follow up. Diagnosis - pneumonia, generalized weakness, dehydration, sepsis Patient admitted to floor in serious condition Labs Test 07/31/17 08:19 White Blood Count 4.7 K/UL (4.8-10.8) Red Blood Count 4.49 M/UL (4.70-6.10) Hemoglobin 14.7 G/DL (14.2-18.0) Hematocrit 44.6 % (42.0-52.0) Mean Corpuscular Volume 99 FL (80-99) Mean Corpuscular Hemoglobin 32.7 PG (27.0-31.0) Mean Corpuscular Hemoglobin Concent 32.9 G/DL (32.0-36.0) Red Cell Distribution Width 12.1 % (11.6-14.8) Platelet Count 145 K/UL (150-450) Mean Platelet Volume 7.4 FL (6.5-10.1) Neutrophils (%) (Auto) % (45.0-75.0) Lymphocytes (%) (Auto) % (20.0-45.0) Monocytes (%) (Auto) % (1.0-10.0) Eosinophils (%) (Auto) % (0.0-3.0) Basophils (%) (Auto) % (0.0-2.0) Differential Total Cells Counted 100 Neutrophils % (Manual) 52 % (45-75) Lymphocytes % (Manual) 28 % (20-45) Monocytes % (Manual) 20 % (1-10) Eosinophils % (Manual) 0 % (0-3) Basophils % (Manual) 0 % (0-2) Band Neutrophils 0 % (0-8) Platelet Estimate Decreased Platelet Morphology Normal Red Blood Cell Morphology Normal Sodium Level 136 MMOL/L (136-145) Potassium Level 4.7 MMOL/L (3.5-5.1) Chloride Level 104 MMOL/L (98-107) Carbon Dioxide Level 25 MMOL/L (21-32) Anion Gap 7 mmol/L (5-15) Blood Urea Nitrogen 35 mg/dL (7-18) Creatinine 1.8 MG/DL (0.55-1.30) Estimat Glomerular Filtration Rate mL/min (>60) Glucose Level 157 MG/DL (74-106) Lactic Acid Level 2.40 mmol/L (0.66-2.22) Calcium Level 9.0 MG/DL (8.5-10.1) Total Bilirubin 1.3 MG/DL (0.2-1.0) Direct Bilirubin 1.0 MG/DL (0.0-0.3) Aspartate Amino Transf (AST/SGOT) 44 U/L (15-37) Alanine Aminotransferase (ALT/SGPT) 22 U/L (12-78) Alkaline Phosphatase 37 U/L (46-116) Total Creatine Kinase 37 U/L (26-308) Creatine Kinase MB < 0.5 NG/ML (0.0-3.6) Creatine Kinase MB Relative Index 1.3 Troponin I 0.012 ng/mL (0.000-0.056) Pro-B-Type Natriuretic Peptide 3485 pg/mL (0-125) Total Protein 7.7 G/DL (6.4-8.2) Albumin 2.6 G/DL (3.4-5.0) Globulin 5.1 g/dL Albumin/Globulin Ratio 0.5 (1.0-2.7) EKG Diagnostic Results Rate: normal Rhythm: NSR ST Segments: no acute changes ASA given to the pt in ED: No Rhythm Strip Diag. Results EP Interpretation: yes Rhythm: NSR, no PVC's, no ectopy Chest X-Ray Diagnostic Results Chest X-Ray Diagnostic Results : Chest X-Ray Ordered: Yes # of Views/Limited/Complete: 1 View Indication: Shortness of Breath EP Interpretation: Yes Interpretation: no pneumothorax, other - RLL infiltrate Impression: Other - PNA Electronically Signed by: Electronically signed by Joshua Zacarias MD Last Vital Signs Date Time Temp Pulse Resp B/P (MAP) Pulse Ox O2 Delivery O2 Flow Rate FiO2 07/31/17 08:54 101.2 96 24 106/49 99 Room Air 101.2 Status: improved Disposition: ADMITTED INPATIENT Condition: Serious JOSHUA ZACARIAS M.D. Jul 31, 2017 09:10
[2017-07-31 09:14] LABS: ALANINE AMINOTRANSFERASE 22 U/L (12-78); ALBUMIN 2.6 G/DL (3.4-5.0); ALBUMIN/GLOBULIN RATIO 0.5 (1.0-2.7); ALKALINE PHOSPHATASE 37 U/L (46-116); ASPARTATE AMINO TRANSFERASE 44 U/L (15-37); BILIRUBIN,TOTAL 1.3 MG/DL (0.2-1.0); CKMB < 0.5 NG/ML (0.0-3.6); CREATINE KINASE 37 U/L (26-308)
[2017-07-31] MEDS ORDERED: Acetaminophen 500mg (ES) tab ORAL ONE (09:15)
[2017-07-31 09:47] LABS: APPEARANCE,URINE CLEAR; BILIRUBIN, URINE NEGATIVE (NEGATIVE); GLUCOSE, URINE (UA) NEGATIVE (NEGATIVE); KETONES,URINE NEGATIVE (NEGATIVE); LEUKOCYTE ESTERASE ,URINE 1+ (NEGATIVE); NITRITE,URINE NEGATIVE (NEGATIVE); PH,URINE 6 (4.5-8.0); PROTEIN,URINE 2+ (NEGATIVE); UROBILINOGEN,URINE 4 MG/DL (0.0-1.0)
[2017-07-31 09:48] LABS: COLOR,URINE YELLOW
--- NOTE | 2017-07-31 09:56 | Diagnostic Imaging Report ---
Indication: Dyspnea Comparison: 07/09/2016 A single view chest radiograph was obtained. Findings: There is a right basal infiltrate present. Pneumonia may be present. Please correlate clinically. Heart size is normal. Bones are osteopenic. IMPRESSION: Pneumonia is suspected at the right lung base
[2017-07-31 10:45] VITALS: BP 107/56
--- NOTE | 2017-07-31 13:27 | Consultation ---
Consult Note Consult Note [facility] DICT # [id number] VANDANA KENT M.D. Jul 31, 2017 13:27
[2017-07-31] MEDS ORDERED: Albuterol/Ipratropium 3ml neb HHN PRN (13:30)
[2017-07-31] MEDS ORDERED: guaiFENesin DM 100mg/5ml ORAL PRN (13:30)
--- NOTE | 2017-07-31 14:54 | Consultation ---
Consult Note Consult Note NEUROLOGY CONSULTATION DATE OF CONSULTATION: 07/31/2017 CONSULTING PHYSICIAN: Ashley Blandon M.D. REQUESTING PHYSICIAN: Pedro Law M.D. HISTORY: Mr. Elian Beltran is an 81-year-old, left-handed, black gentleman, who does have a long history of hypertension, diabetes mellitus and cerebrovascular disease with prior strokes. He was functioning relatively well until a few days ago when he developed a cough productive of sputum, fevers with chills, generalized weakness, and lethargy. He was brought into the [facility] ER and admitted for pneumonia, generalized weakness, dehydration, and sepsis. He feels better now but is still not back to his normal self. PAST MEDICAL HISTORY: Significant for hypertension, diabetes mellitus and cerebrovascular disease with a prior strokes. FAMILY HISTORY: Significant for diabetes mellitus in other family members. PERSONAL HISTORY: Home: He lives with a caregiver - in the caregiver's home. Work: He was unable to tell me what kind of work he did in the past, but states he is retired now. Habits: There is no history of alcohol, tobacco, or illicit drug use as per the chart. PHYSICAL EXAMINATION: GENERAL: He is a well-developed, well-nourished, black gentleman, lying in an ICU bed, in no acute distress. VITAL SIGNS: Pulse 96 per minute, blood pressure 107/56 mmHg, respirations 20 per minute, and temperature 98.6 degrees Fahrenheit. HEAD: Normocephalic and atraumatic. NECK: No neck rigidity was observed. EENT: Benign. NEUROLOGICAL EXAMINATION: MENTAL STATUS EXAMINATION: He was awake and alert. He was oriented to self, "[facility], and [facility]. He did not know the name of the hospital, date or month. He was able to recall 3/3 words immediately, but could not remember them in 1 minute or 3 minutes. He was able to remember Presidents Trump and Obama only. His mathematical skills were impaired. His visuospatial function was also impaired. SPEECH: He had a mild dysarthria. LANGUAGE: He had anomia for low and mid frequency words. CRANIAL NERVE EXAMINATION: II: The visual rod were intact to confrontation testing. III, IV, : External ocular movements were full, and the pupils 3 mm in diameter, equal, round, regular, and reactive to light. V: He had normal facial sensations and the temporales, masseters, and pterygoids functioned normally. VII: He had a right greater than left VII central facial paresis. VIII: He was able to hear well and had no nystagmus. IX: The palate moved symmetrically on phonation. X: He had no hoarseness of voice. XI: The sternocleidomastoids and trapezii functioned normally. XII: The tongue was in the midline without any fasciculations or atrophy. MOTOR SYSTEM: The tone was increased in all four extremities with spasticity, more marked on the right side compared to the left. Examination of muscle mass revealed wasting of the hand muscles on the right side and foot muscles bilaterally. Examination of power revealed G 0/5 on the right except for G 3/5 in the biceps, shoulder rotators, hip rotators and quadriceps. On the left side he had G 4+/5 except for G 4/5 in the iliopsoas. SENSORY EXAMINATION: He responded appropriately to light touch. He was unable to cooperate for the sensory modalities. REFLEXES: 2++ on the right and trace+ on the left at the biceps, triceps and brachioradialis. 0 at the knees and ankles. The plantar response was extensor on the right and flexor on the left. COORDINATION: He was able to do finger to nose testing on the left side only. STANCE & GAIT: Could not be tested. DIAGNOSTIC IMPRESSION: 1. Mr. Elian Beltran is an 81-year-old, left-handed, black gentleman, who does have a past history of hypertension, diabetes mellitus and cerebrovascular disease who was hospitalized for an alteration in his mental state, a cough productive of sputum, fevers with chills, and generalized weakness. 2. On neurological examination, at this time, he is oriented to self, "[facility], and 2018. He is able to recall 3/3 words immediately, but cannot remember them in 1 minute or 3 minutes. He is able to remember Presidents Trump and Obama only. His mathematical skills are impaired and so is the visuospatial function. 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 In addition, his speech is dysarthric and he has right greater than left VII central facial paresis. 3. Laboratory data on admission revealed a significant leukopenia with a WBC count of 4,700 and a low platelet count of 145,000. A chemistry panel with BUN elevated to 35 with a creatinine of 1.8. A low albumin at 2.6 and a UA with 1+ leukocyte esterase, 0-2 RBCs and 2-4 WBCs per HPF. 4. 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 RECOMMENDATIONS: 1. Agree with management thus far. 2. Agree with aggressive treatment of infectious processes. 3. The patient should be worked up thoroughly for other treatable causes of cognitive dysfunction with an addition to the laboratory tests already done, a B12 level, folate level, vitamin D level, glycohemoglobin, Westergren sedimentation rate, and TSH. 4. Depending on how the patient fares over the next day or so, further recommendations will be given. Thank you for entrusting me with the care of Mr. Beltran. I shall follow him with you. Ashley Blandon M.D., M.S.P.ASHLEY GRAVES Jul 31, 2017 14:53
[2017-07-31 14:55] LABS: BASOPHILS % (AUTO) 1.9 % (0.0-2.0); EOSINOPHILS % (AUTO) 1.9 % (0.0-3.0); HEMATOCRIT 33.9 % (42.0-52.0); HEMOGLOBIN 11.5 G/DL (14.2-18.0); LYMPHOCYTES % (AUTO) 30.3 % (20.0-45.0); MEAN CORPUSCULAR VOLUME 98 FL (80-99); MONOCYTES % (AUTO) 17.7 % (1.0-10.0); NEUTROPHILS % (AUTO) 48.3 % (45.0-75.0); PLATELET COUNT 118 K/UL (150-450); RED BLOOD COUNT 3.44 M/UL (4.70-6.10); RED CELL DISTRIBUTION WIDTH 12.1 % (11.6-14.8); WHITE BLOOD COUNT 4.2 K/UL (4.8-10.8)
[2017-07-31 15:05] LABS: ANION GAP 7 mmol/L (5-15); BLOOD UREA NITROGEN 32 mg/dL (7-18); CALCIUM 7.8 MG/DL (8.5-10.1); CARBON DIOXIDE 25 MMOL/L (21-32); CHLORIDE 108 MMOL/L (98-107); CREATININE 1.4 MG/DL (0.55-1.30); POTASSIUM 4.3 MMOL/L (3.5-5.1); SODIUM 140 MMOL/L (136-145)
[2017-07-31] MEDS: Piperacillin/Tazobactam 3.375 GM in NS 110 ML IVPB SCH ×2 (15:14→21:31)
[2017-07-31 16:00] VITALS: BP 126/70
[2017-07-31] MEDS: guaiFENesin ER 600mg tab ORAL SCH (17:38)
--- NOTE | 2017-07-31 18:26 | Cardiac Electrophysiology PN ---
Subjective Subjective Cardiology consult dictated [id number] Objective Last 24 Hour Vital Signs Date Time Temp Pulse Resp B/P (MAP) Pulse Ox O2 Delivery O2 Flow Rate FiO2 07/31/17 16:00 97.0 75 18 126/70 97 Room Air 97.0 07/31/17 10:47 98.6 07/31/17 10:45 98.6 96 20 107/56 97 Room Air 98.6 07/31/17 09:17 101.2 07/31/17 08:54 101.2 96 24 106/49 99 Room Air 101.2 07/31/17 07:54 98.4 74 18 122/74 99 Room Air 98.4 Laboratory Tests Test 07/31/17 08:19 07/31/17 09:00 07/31/17 10:42 07/31/17 14:38 White Blood Count 4.7 K/UL (4.8-10.8) L 4.2 K/UL (4.8-10.8) L Red Blood Count 4.49 M/UL (4.70-6.10) L 3.44 M/UL (4.70-6.10) L Hemoglobin 14.7 G/DL (14.2-18.0) 11.5 G/DL (14.2-18.0) L Hematocrit 44.6 % (42.0-52.0) 33.9 % (42.0-52.0) L Mean Corpuscular Volume 99 FL (80-99) 98 FL (80-99) Mean Corpuscular Hemoglobin 32.7 PG (27.0-31.0) H 33.3 PG (27.0-31.0) H Mean Corpuscular Hemoglobin Concent 32.9 G/DL (32.0-36.0) 33.9 G/DL (32.0-36.0) Red Cell Distribution Width 12.1 % (11.6-14.8) 12.1 % (11.6-14.8) Platelet Count 145 K/UL (150-450) L 118 K/UL (150-450) L Mean Platelet Volume 7.4 FL (6.5-10.1) 7.2 FL (6.5-10.1) Neutrophils (%) (Auto) % (45.0-75.0) 48.3 % (45.0-75.0) Lymphocytes (%) (Auto) % (20.0-45.0) 30.3 % (20.0-45.0) Monocytes (%) (Auto) % (1.0-10.0) 17.7 % (1.0-10.0) H Eosinophils (%) (Auto) % (0.0-3.0) 1.9 % (0.0-3.0) Basophils (%) (Auto) % (0.0-2.0) 1.9 % (0.0-2.0) Differential Total Cells Counted 100 Neutrophils % (Manual) 52 % (45-75) Lymphocytes % (Manual) 28 % (20-45) Monocytes % (Manual) 20 % (1-10) H Eosinophils % (Manual) 0 % (0-3) Basophils % (Manual) 0 % (0-2) Band Neutrophils 0 % (0-8) Platelet Estimate Decreased L Platelet Morphology Normal Red Blood Cell Morphology Normal Sodium Level 136 MMOL/L (136-145) 140 MMOL/L (136-145) Potassium Level 4.7 MMOL/L (3.5-5.1) 4.3 MMOL/L (3.5-5.1) Chloride Level 104 MMOL/L (98-107) 108 MMOL/L (98-107) H Carbon Dioxide Level 25 MMOL/L (21-32) 25 MMOL/L (21-32) Anion Gap 7 mmol/L (5-15) 7 mmol/L (5-15) Blood Urea Nitrogen 35 mg/dL (7-18) H 32 mg/dL (7-18) H Creatinine 1.8 MG/DL (0.55-1.30) H 1.4 MG/DL (0.55-1.30) H Estimat Glomerular Filtration Rate mL/min (>60) mL/min (>60) Glucose Level 157 MG/DL (74-106) H 127 MG/DL (74-106) H Lactic Acid Level 2.40 mmol/L (0.66-2.22) H 2.00 mmol/L (0.66-2.22) Calcium Level 9.0 MG/DL (8.5-10.1) 7.8 MG/DL (8.5-10.1) L Total Bilirubin 1.3 MG/DL (0.2-1.0) H Direct Bilirubin 1.0 MG/DL (0.0-0.3) H Aspartate Amino Transf (AST/SGOT) 44 U/L (15-37) H Alanine Aminotransferase (ALT/SGPT) 22 U/L (12-78) Alkaline Phosphatase 37 U/L (46-116) L Total Creatine Kinase 37 U/L (26-308) Creatine Kinase MB < 0.5 NG/ML (0.0-3.6) Creatine Kinase MB Relative Index 1.3 Troponin I 0.012 ng/mL (0.000-0.056) Pro-B-Type Natriuretic Peptide 3485 pg/mL (0-125) H Total Protein 7.7 G/DL (6.4-8.2) Albumin 2.6 G/DL (3.4-5.0) L Globulin 5.1 g/dL Albumin/Globulin Ratio 0.5 (1.0-2.7) L Urine Color Yellow Urine Appearance Clear Urine pH 6 (4.5-8.0) Urine Specific [place] 1.020 (1.005-1.035) Urine Protein 2+ (NEGATIVE) H Urine Glucose (UA) Negative (NEGATIVE) Urine Ketones Negative (NEGATIVE) Urine Occult Blood Negative (NEGATIVE) Urine Nitrite Negative (NEGATIVE) Urine Bilirubin Negative (NEGATIVE) Urine Urobilinogen 4 MG/DL (0.0-1.0) H Urine Leukocyte Esterase 1+ (NEGATIVE) H Urine RBC 0-2 /HPF (0 - 0) H Urine WBC 2-4 /HPF (0 - 0) Urine Squamous Epithelial Cells Occasional /LPF Urine Bacteria Occasional /HPF (NONE) Test 07/31/17 14:54 07/31/17 15:20 Hemoglobin A1c 5.6 % (4.3-6.0) Vitamin B12 Level 654 PG/ML (193-986) Vitamin D 25-Hydroxy Pending 25-Hydroxy Vitamin D2 Pending 25-Hydroxy Vitamin D3 Pending Folate 12.7 NG/ML (8.6-58.9) Thyroid Stimulating Hormone (TSH) 0.712 uiU/mL (0.358-3.740) Arterial Blood pH 7.475 (7.350-7.450) Arterial Blood Partial Pressure CO2 26.2 mmHg (35.0-45.0) L Arterial Blood Partial Pressure O2 108.8 mmHg (75.0-100.0) H Arterial Blood HCO3 18.9 mmol/L (22.0-26.0) L Arterial Blood Oxygen Saturation 98.0 % (92.0-98.0) Arterial Blood Base Excess -3.0 Hang Test Positive Microbiology Date/Time Source Procedure Growth Status 07/31/17 08:19 Nasal Nares Influenza Types A,B Antigen (AIDAN) - Final Complete CHUCKIE VELARDE Jul 31, 2017 18:26
[2017-07-31] MEDS: D5 1/2NS w/KCl 20mEq 1,000 ML IV SCH (19:43)
[2017-07-31] MEDS: Heparin 5000 units/ml inj SUBQ SCH (19:46)
[2017-07-31 20:00] VITALS: BP 108/62
[2017-07-31] MEDS: Albuterol/Ipratropium 3ml neb HHN SCH (20:51)
--- NOTE | 2017-07-31 22:30 | Consultation ---
DATE OF CONSULTATION: 07/31/2017 PULMONARY CONSULTATION CONSULTING PHYSICIAN: Ovidio Whiteside M.D. REFERRING PHYSICIAN: Pedro Law M.D. REASON FOR CONSULTATION: Pneumonia. HISTORY OF PRESENT ILLNESS: The patient is an 81-year-old male, assisted living resident with a history of diabetes, hypertension, CKD, prior CVA, and possible dementia, who was brought via EMS to the ER with generalized weakness for one week with cough, congestion, yellow phlegm. No rhinorrhea. No wheezing. No nausea, vomiting. No diarrhea or constipation. No hematuria, dysuria. No abdominal pain or other complaints. In the ER, the patient initially was febrile to 101.2, blood pressure 122/74, and saturating well on room air. His laboratory evaluation was significant for a white count of 4.7 and creatinine of 1.8 as well as lactic acid of 2.4 initially, but subsequently improved . BNP was elevated, but the patient is clinically not in heart failure. The patient's chest x-ray showed a right lower lobe infiltrate. He received Levaquin in the emergency department as well as one liter of NS and was transferred to the floor. He is confused and unable to provide much of a history, but denies any other complaints. PAST MEDICAL HISTORY: 1. Dementia/CVA. 2. Hypertension. 3. Diabetes. 4. CKD. 5. Prior pneumonia. 6. Gout. ALLERGIES: No known drug allergies. MEDICATIONS: Prior to admission medications, Tylenol, Mag-Ox, allopurinol, Norvasc, Abilify, aspirin, Lipitor, Plavix, colchicine, docusate, metformin, Protonix, Paxil, Januvia, and Diovan. PHYSICAL EXAMINATION: VITAL SIGNS: Temperature is 101.2, heart rate 96, blood pressure 107/56, respiratory rate 20, and saturating 99% on room air. GENERAL: He is a well-developed, well-nourished male, in no acute distress. Awake, alert, and oriented x3. HEENT: Normocephalic and atraumatic. Oropharynx is clear with moist mucous membranes. NECK: Supple without lymphadenopathy. There is 6 cm jugular venous distention. CHEST: Clear and distant except for some scattered coarse at the right base. HEART: Regular rate and rhythm. ABDOMEN: Soft, nontender, and nondistended. EXTREMITIES: No cyanosis, clubbing, or edema. ANCILLARY DATA: White count 4.7, hemoglobin 14.7, and platelet count 145. Sodium 136, potassium 4.7, chloride 104, bicarbonate 25, BUN 35, creatinine 1.8, and glucose 157. Lactic acid 2.4 and then 2. Calcium 9. Total bilirubin 1.3, direct bilirubin 1. AST 44, alkaline phosphatase 37. BNP 3485. Troponin 0.012. Albumin 2.6, albumin globulin 0.5. Rapid flu is negative. The patient has an echocardiogram on the record from 07/09/2016, was difficult study with an LVEF of 30% to 35% and some diastolic dysfunction. ASSESSMENT: The patient is an 81-year-old male with history of CVA, hypertension, hyperlipidemia, possible dementia, and CKD, presenting with febrile illness and a right lower lobe infiltrate likely healthcare-associated pneumonia. Given he lives in a residential facility plus or minus aspiration. PROBLEM LIST: 1. Right lower lobe infiltrate, healthcare-associated pneumonia. 2. Lactic acidosis. 3. Systemic inflammatory response syndrome. 4. TRUDY, on CKD. 5. 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 6. Prior CVA. 7. Possible dementia. 8. Hypertension. 9. Hyperlipidemia. 10. Diabetes. 11. Gout TREATMENT PLAN: 1. Optimize pulmonary hygiene/mobilize as tolerated. 2. As needed O2 to keep saturations greater than 90%. 3. Round the clock and as needed DuoNebs. 4. We will start Zosyn for empiric aspiration coverage. 5. Swallow evaluation. 6. Aspiration precautions. 7. DVT prophylaxis, heparin subcutaneously. 8. Monitor volumes and renal function, the patient grossly euvolemic on exam, but will be cautious with overhydration, given his known history of systolic and diastolic dysfunction. 9. We will check a baseline ABG. 10. The patient is a Full Code. Dr. Law, thank you for allowing me to assist in the care of your patient. If I may be of any assistance, please do not hesitate to ask. Ovidio Whiteside M.D. DR: BEBE JOB#: [id number] CC:
--- NOTE | 2017-07-31 23:00 | Consultation ---
DATE OF CONSULTATION: 07/31/2017 INFECTIOUS DISEASES CONSULTATION This consult is for coverage of Dr. Suero. CONSULTING PHYSICIAN: Carlos Bajwa M.D. PRIMARY ATTENDING PHYSICIAN: Pedro Law M.D. REASON FOR CONSULTATION: Pneumonia. HISTORY OF PRESENT ILLNESS: The patient is an 81-year-old, male admitted today was complaining of couple of days weakness. It was noticed the patient has fever up to 101.2 in the hospital. He also had coughing that was productive of sputum. The patient currently is sleeping, not a source of history. PAST MEDICAL HISTORY: Significant for hypertension, diabetes mellitus, and CVA. ALLERGIES: No known drug allergies. MEDICATIONS: Getting heparin, albuterol ipratropium inhalers, Zosyn, Robitussin dextromethorphan. SOCIAL HISTORY: . No other history is obtainable by the patient. PHYSICAL EXAMINATION: VITAL SIGNS: T-max 101.2, current temperature 98.6, pulse 96. GENERAL APPEARANCE: No acute distress. HEENT: Head and neck, normocephalic. HEART: Regular. Normal rate. LUNGS: Few rhonchi bilaterally. ABDOMEN: Soft and nontender. EXTREMITIES: No edema. LABORATORY AND DIAGNOSTIC DATA: WBC 4.2, hemoglobin 11.5, hematocrit 33.9, platelets 118. Sodium 140, potassium 4.3, chloride 108, bicarb 25, BUN 32, creatinine 1.4. Lactic acid elevated to 2.5 Creatinine at the time of admission was 1.8. UA show WBCs 2 to 4, nitrite negative, leukocyte esterase 1+. Chest x-ray showed right lower lobe infiltrate. IMPRESSION: 1. Pneumonia. 2. Hypertension. 3. History of previous CVA. 4. Diabetes mellitus. RECOMMENDATION: 1. We will continue with Zosyn. 2. We will follow up the cultures including blood and sputum, MRSA screen and culture. At the end of my exam, I thank Dr. Law, for involving me in the care of this patient. Carlos Bajwa M.D. DR: Fernie JOB#: [id number] CC: HARSHA
[2017-08-01] VITALS: BP 124/51
--- NOTE | 2017-08-01 | Consultation ---
DATE OF CONSULTATION: 07/31/2017 CARDIOLOGY CONSULTATION CONSULTING PHYSICIAN: Bebo Damico M.D. REFERRING PHYSICIAN: Pedro Law M.D. REASON FOR CONSULTATION: Cardiac arrhythmia and hypertension. 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 The patient was admitted for that reason. The patient on the EKG had frequent PVCs and Cardiology consultation was obtained for further evaluation and management. REVIEW OF SYSTEMS: Review of systems was negative other than what was mentioned in the history of present illness. PAST MEDICAL HISTORY: As mentioned above. FAMILY HISTORY: Noncontributory. SOCIAL HISTORY: No history of smoking or drinking alcohol. PHYSICAL EXAMINATION: VITAL SIGNS: Blood pressure is 126/70, pulse 75, respirations 18, and temperature 97, maximum temperature today was 101.2. HEAD AND NECK: Showed no JVD. LUNGS: Clear. CARDIOVASCULAR: Regular S1 and S2 with no gallop or murmur. ABDOMEN: Soft. EXTREMITIES: Contracture of right upper extremity. LABORATORY AND DIAGNOSTIC DATA: His EKG shows sinus rhythm with occasional PVCs. White count 4.2, hemoglobin 11.5, hematocrit 34, and platelet count is 118. Sodium 140, potassium 4.3, BUN of 32, creatinine 1.4, glucose of 127. Lactic acid 2.4. UA showed 1+ leukocyte esterase. ASSESSMENT AND PLAN: 1. PVCs, these are not critical. The patient already underwent an echocardiogram that showed ejection fraction of 55% to 60%. The patient denies any chest pain or shortness of breath. 2. History of hypertension. Blood pressure currently stable, off antihypertensives. 3. History of prior CVA. 4. Pneumonia on IV antibiotic. Thank you very much, Dr. Law, for allowing me to participate in the care of this patient. Please do not hesitate to contact me for any questions regarding my evaluation. Bebo Damico M.D. DR: Gay JOB#: [id number] CC:
[2017-08-01] MEDS: Albuterol/Ipratropium 3ml neb HHN SCH ×5 (01:57→23:42)
[2017-08-01 04:00] VITALS: BP 112/63
--- NOTE | 2017-08-01 04:00 | History and Physical Report ---
DATE OF ADMISSION: 07/31/2017 HISTORY OF PRESENT ILLNESS: The patient is an unfortunate 81-year-old gentleman with history of CVA with right-sided hemiparesis, history of diabetes, history of hypertension, and hyperlipidemia who resides at home. The patient has been having a cough over the past several days, has noted to have also fevers and thus presented to the emergency room for further evaluation. Denies any chest pain. He admits to having sore throat. No headache. No abdominal pain. No urinary symptoms. PAST MEDICAL HISTORY: History of CVA with right-sided hemiparesis, history of schizophrenia, history of diabetes, history of previous diabetic ketoacidosis, history of hyperlipidemia, history of hypertension, history of gout, history of CAD, history of pneumonias in the past, and history of seizure. MEDICATIONS: Please see his reconciled medication list. ALLERGIES: Allergic to penicillin. FAMILY HISTORY: Noncontributory. REVIEW OF SYSTEMS: The patient is somewhat confused. He does admit to some generalized weakness. Admit to slight headache. No sore throat. Cough as described above. No urinary symptoms. No abdominal pain. PHYSICAL EXAMINATION: GENERAL: He is chronically ill appearing, currently in no apparent distress. VITAL SIGNS: Blood pressure 107/56, respirations 20, saturations are 97% on room air, pulse 96, and temperature 98.6 degrees. HEENT: Head is normocephalic and atraumatic. Pupils are equal and reactive to light. Extraocular muscles are intact. Eyes are anicteric. NECK: Supple. No JVP. No bruits. LUNGS: He has got rhonchi bilaterally. HEART: Regular rate and rhythm. ABDOMEN: Soft. Positive bowel sounds. Nondistended. Nontender. EXTREMITIES: No clubbing, cyanosis, or edema. NEUROLOGIC: He does have right-sided hemiparesis. LABORATORY AND DIAGNOSTIC DATA: Laboratories reveal a white count of 4.7, hemoglobin 14.7, hematocrit 44.6, and platelet count 145. Sodium 140, potassium 4.3, chloride 108, bicarbonate 25, BUN 32, creatinine 1.4 and glucose 127. TSH is normal. Glycohemoglobin 5.6. Urinalysis reveals 1+ leukocyte esterase and 2 to 4 WBCs. Blood cultures are pending. Imaging, chest x-ray reveals pneumonia in the right base. Influenza A and B are negative. EKG noted. ASSESSMENT AND PLAN: The patient is an 81-year-old gentleman with above medical problems, presents with complaints of cough and some shortness of breath, some headaches and sore throat and fevers. Influenza is negative. Sputum will be obtained. Full fever workup initiated, will be started on antibiotics for probable aspiration. We will obtain a swallow evaluation. I have asked Pulmonary consultation to see him as well as Infectious Disease consultation. He is somewhat confused, suspect some encephalopathy due to infection. I have asked also his neurologist Dr. Blandon to see. The patient should be on DVT and ulcer prophylaxis. Pedro Law M.D. DR: TAO JOB#: [id number] CC:
[2017-08-01] MEDS: Piperacillin/Tazobactam 3.375 GM in NS 110 ML IVPB SCH ×3 (05:49→22:27)
[2017-08-01] MEDS ORDERED: Acetaminophen 650 MG SUPP RECTAL PRN (06:30)
--- NOTE | 2017-08-01 07:43 | Pulmonology Progress Note ---
Assessment/Plan Problems: (1) Pneumonia (2) Sepsis (3) Dehydration (4) shortness of breath Assessment/Plan ASSESSMENT: The patient is an 81-year-old male with history of CVA, hypertension, hyperlipidemia, possible dementia, and CKD, presenting with febrile illness and a right lower lobe infiltrate likely healthcare-associated pneumonia. Given he lives in a residential facility plus or minus aspiration. PROBLEM LIST: 1. Right lower lobe infiltrate, healthcare-associated pneumonia. 2. Lactic acidosis - RESOLVED 3. Systemic inflammatory response syndrome - HEMODYNAMICALLY STABLE 4. TRUDY, on CKD - IMPROVED 5. 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 6. Prior CVA. 7. Possible dementia. 8. Hypertension. 9. Hyperlipidemia. 10. Diabetes. 11. Gout TREATMENT PLAN: 1. Optimize pulmonary hygiene/mobilize as tolerated. 2. As needed O2 to keep saturations greater than 90%. 3. Round the clock and as needed DuoNebs. 4. Continue Zosyn (D2) per ID 5. F/U PUBLIC WORKS INSPECTOR recs, F/U VSS 6. Aspiration precautions. 7. DVT prophylaxis, heparin subcutaneously. 8. Monitor volumes and renal function, the patient grossly euvolemic on exam, but will be cautious with overhydration, given his known history of systolic and diastolic dysfunction. 9. Full Code. Subjective Allergies: Coded Allergies: No Known Allergies (Unverified , 10/12/15) Call to [facility], spoke with KALA Fung confirmed paperwork which indicated no known allergies to medications. Subjective Better, Tm 100.9, VSS + cough/SALES OFFICE ASSISTANT, + SOB, no F/C Awaiting VSS, renal fxn better Objective Last 24 Hour Vital Signs Date Time Temp Pulse Resp B/P (MAP) Pulse Ox O2 Delivery O2 Flow Rate FiO2 08/01/17 04:00 100.9 91 20 112/63 98 100.9 08/01/17 02:29 85 20 96 Room Air 21 08/01/17 01:56 21 08/01/17 01:55 85 20 100 Room Air 21 08/01/17 00:00 99.9 85 20 124/51 100 99.9 07/31/17 21:13 75 18 97 Room Air 21 07/31/17 20:50 21 07/31/17 20:50 75 18 97 Room Air 21 3/7/18 20:49 75 18 Room Air 21 07/31/17 20:00 97.2 65 19 108/62 95 Room Air 97.2 07/31/17 16:00 97.0 75 18 126/70 97 Room Air 97.0 07/31/17 10:47 98.6 07/31/17 10:45 98.6 96 20 107/56 97 Room Air 98.6 07/31/17 09:17 101.2 07/31/17 08:54 101.2 96 24 106/49 99 Room Air 101.2 07/31/17 07:54 98.4 74 18 122/74 99 Room Air 98.4 Intake and Output 07/31/17 08/01/17 18:59 06:59 Intake Total 1000 ml 492.5 ml Output Total 100 ml 3 ml Balance 900 ml 489.5 ml Intake IV Total 1000 ml 492.5 ml Output Urine Total 100 ml 3 ml # Bowel Movements 1 General Appearance: WD/WN, no acute distress HEENT: normocephalic, atraumatic, mucous membranes moist Respiratory/Chest: rhonchi - scattered Cardiovascular: normal peripheral pulses, normal rate, regular rhythm Abdomen: normal bowel sounds, soft, non tender, no organomegaly, non distended , no mass Extremities: no cyanosis, no clubbing, no edema Microbiology Date/Time Source Procedure Growth Status 07/31/17 08:19 Nasal Nares Influenza Types A,B Antigen (AIDAN) - Final Complete Laboratory Tests 07/31/17 08:19: White Blood Count 4.7L, Red Blood Count 4.49L, Hemoglobin 14.7, Hematocrit 44.6 , Mean Corpuscular Volume 99, Mean Corpuscular Hemoglobin 32.7H, Mean Corpuscular Hemoglobin Concent 32.9, Red Cell Distribution Width 12.1, Platelet Count 145L, Mean Platelet Volume 7.4, Neutrophils (%) (Auto) , Lymphocytes (%) ( Auto) , Monocytes (%) (Auto) , Eosinophils (%) (Auto) , Basophils (%) (Auto) , Differential Total Cells Counted 100, Neutrophils % (Manual) 52, Lymphocytes % ( Manual) 28, Monocytes % (Manual) 20H, Eosinophils % (Manual) 0, Basophils % ( Manual) 0, Band Neutrophils 0, Platelet Estimate DecreasedL, Platelet Morphology Normal, Red Blood Cell Morphology Normal, Sodium Level 136, Potassium Level 4.7, Chloride Level 104, Carbon Dioxide Level 25, Anion Gap 7, Blood Urea Nitrogen 35H, Creatinine 1.8H, Estimat Glomerular Filtration Rate , Glucose Level 157H, Lactic Acid Level 2.40H, Calcium Level 9.0, Total Bilirubin 1.3H, Direct Bilirubin 1.0H, Aspartate Amino Transf (AST/SGOT) 44H, Alanine Aminotransferase (ALT/SGPT) 22, Alkaline Phosphatase 37L, Total Creatine Kinase 37, Creatine Kinase MB < 0.5, Creatine Kinase MB Relative Index 1.3, Troponin I 0.012, Pro-B-Type Natriuretic Peptide 3485H, Total Protein 7.7, Albumin 2.6L, Globulin 5.1, Albumin/Globulin Ratio 0.5L 07/31/17 09:00: Urine Color Yellow, Urine Appearance Clear, Urine pH 6, Urine Specific [place] 1.020, Urine Protein 2+H, Urine Glucose (UA) Negative, Urine Ketones Negative, Urine Occult Blood Negative, Urine Nitrite Negative, Urine Bilirubin Negative, Urine Urobilinogen 4H, Urine Leukocyte Esterase 1+H, Urine RBC 0-2H, Urine WBC 2 -4, Urine Squamous Epithelial Cells Occasional, Urine Bacteria Occasional 07/31/17 10:42: Lactic Acid Level 2.00 07/31/17 14:38: White Blood Count 4.2L, Red Blood Count 3.44L, Hemoglobin 11.5L, Hematocrit 33.9L, Mean Corpuscular Volume 98, Mean Corpuscular Hemoglobin 33.3H, Mean Corpuscular Hemoglobin Concent 33.9, Red Cell Distribution Width 12.1, Platelet Count 118L, Mean Platelet Volume 7.2, Neutrophils (%) (Auto) 48.3, Lymphocytes ( %) (Auto) 30.3, Monocytes (%) (Auto) 17.7H, Eosinophils (%) (Auto) 1.9, Basophils (%) (Auto) 1.9, Sodium Level 140, Potassium Level 4.3, Chloride Level 108H, Carbon Dioxide Level 25, Anion Gap 7, Blood Urea Nitrogen 32H, Creatinine 1.4H, Estimat Glomerular Filtration Rate , Glucose Level 127H, Calcium Level 7.8L 07/31/17 14:54: Hemoglobin A1c 5.6, Vitamin B12 Level 654, Vitamin D 25-Hydroxy [Pending], 25- Hydroxy Vitamin D2 [Pending], 25-Hydroxy Vitamin D3 [Pending], Folate 12.7, Thyroid Stimulating Hormone (TSH) 0.712 07/31/17 15:20: Arterial Blood pH 7.475H, Arterial Blood Partial Pressure CO2 26.2L, Arterial Blood Partial Pressure O2 108.8H, Arterial Blood HCO3 18.9L, Arterial Blood Oxygen Saturation 98.0, Arterial Blood Base Excess -3.0, Hang Test Positive 08/01/17 04:40: Sodium Level [Pending], Potassium Level [Pending], Chloride Level [Pending], Carbon Dioxide Level [Pending], Blood Urea Nitrogen [Pending], Creatinine [ Pending], Estimat Glomerular Filtration Rate [Pending], Glucose Level [Pending] , Calcium Level [Pending], Triglycerides Level [Pending], Cholesterol Level [ Pending], LDL Cholesterol [Pending], HDL Cholesterol [Pending], Cholesterol/HDL Ratio [Pending], Free Thyroxine [Pending] Current Medications Medications (Trade) Dose Ordered Sig/Justina Route PRN Reason Start Time Stop Time Status Last Admin Dose Admin Acetaminophen (Tylenol) 650 mg Q4H PRN ORAL Mild Pain/Temp > 100.5 08/01/17 06:30 08/31/17 06:29 Acetaminophen (Tylenol) 650 mg Q4H PRN RECTAL Mild Pain (Pain Scale 1-3) 08/01/17 06:30 08/31/17 06:29 Albuterol/ Ipratropium (Albuterol/ Ipratropium) 3 ml Q4H PRN HHN Shortness of Breath 07/31/17 13:30 08/05/17 13:29 Albuterol/ Ipratropium (Albuterol/ Ipratropium) 3 ml Q6HRT HHN 07/31/17 19:00 08/05/17 18:59 08/01/17 01:57 Dextrose/ Electrolytes 1,000 ml @ 70 mls/hr [id number] IV 07/31/17 19:30 08/30/17 19:29 07/31/17 19:43 Guaifenesin (Mucinex ER) 600 mg TWICE A DAY ORAL 07/31/17 18:00 08/30/17 17:59 07/31/17 17:38 Guaifenesin/ Dextromethorphan (Robitussin DM) 10 ml Q4H PRN ORAL For Cough 07/31/17 13:30 08/30/17 13:29 Heparin Sodium (Porcine) (Heparin 5000 units/ml) 5,000 units EVERY 12 HOURS SUBQ 07/31/17 21:00 08/30/17 20:59 Piperacillin Sod/ Tazobactam Sod 3.375 gm/Sodium Chloride 110 ml @ 27.5 mls/hr EVERY 8 HOURS IVPB 07/31/17 14:30 08/05/17 14:29 08/01/17 05:49 VANDANA KENT M.D. Aug 01, 2017 07:43
[2017-08-01 08:03] LABS: ANION GAP 11 mmol/L (5-15); BLOOD UREA NITROGEN 28 mg/dL (7-18); CALCIUM 8.4 MG/DL (8.5-10.1); CARBON DIOXIDE 22 MMOL/L (21-32); CHLORIDE 108 MMOL/L (98-107); CHOLESTEROL 80 MG/DL (< 200); CREATININE 1.4 MG/DL (0.55-1.30); HDL CHOLESTEROL 26 MG/DL (40-60); POTASSIUM 4.4 MMOL/L (3.5-5.1); SODIUM 141 MMOL/L (136-145); TRIGLYCERIDES 126 MG/DL (30-150)
[2017-08-01 08:30] VITALS: BP 96/54
--- NOTE | 2017-08-01 10:23 | Infectious Diseases Prog Note ---
Assessment/Plan Assessment/Plan antibiotics : zosyn A 1. pneumonia 2. DM 3. HTN 4. CVA P 1. continue zosyn 2. sputum culture 3. will follow up cultures Subjective Constitutional: Denies: fever, chills Respiratory: Denies: shortness of breath, dry cough Gastrointestinal/Abdominal: Denies: nausea, vomiting, diarrhea Musculoskeletal: Reports: pain Allergies: Coded Allergies: No Known Allergies (Unverified , 10/12/15) Call to [facility], spoke with KALA Fung confirmed paperwork which indicated no known allergies to medications. Objective Vital Signs Last 24 Hour Vital Signs Date Time Temp Pulse Resp B/P (MAP) Pulse Ox O2 Delivery O2 Flow Rate FiO2 08/01/17 08:30 99.3 91 20 96/54 98 99.3 08/01/17 08:01 89 18 96 Room Air 21 08/01/17 07:50 88 18 93 Room Air 21 08/01/17 04:00 100.9 91 20 112/63 98 100.9 08/01/17 02:29 85 20 96 Room Air 21 08/01/17 01:56 21 08/01/17 01:55 85 20 100 Room Air 21 08/01/17 00:00 99.9 85 20 124/51 100 99.9 07/31/17 21:13 75 18 97 Room Air 21 07/31/17 20:50 21 07/31/17 20:50 75 18 97 Room Air 21 07/31/17 20:49 75 18 Room Air 21 07/31/17 20:00 97.2 65 19 108/62 95 Room Air 97.2 07/31/17 16:00 97.0 75 18 126/70 97 Room Air 97.0 07/31/17 10:47 98.6 07/31/17 10:45 98.6 96 20 107/56 97 Room Air 98.6 Height (Feet): 6 Height (Inches): 1.00 Weight (Pounds): 170 Respiratory/Chest: lungs clear Cardiovascular: normal rate, regular rhythm, no gallop/murmur Abdomen: soft, non tender Extremities: no edema Microbiology Date/Time Source Procedure Growth Status 07/31/17 08:19 Nasal Nares Influenza Types A,B Antigen (AIDAN) - Final Complete Laboratory Tests Test 07/31/17 10:42 07/31/17 14:38 07/31/17 14:54 07/31/17 15:20 Lactic Acid Level 2.00 mmol/L (0.66-2.22) White Blood Count 4.2 K/UL (4.8-10.8) L Red Blood Count 3.44 M/UL (4.70-6.10) L Hemoglobin 11.5 G/DL (14.2-18.0) L Hematocrit 33.9 % (42.0-52.0) L Mean Corpuscular Volume 98 FL (80-99) Mean Corpuscular Hemoglobin 33.3 PG (27.0-31.0) H Mean Corpuscular Hemoglobin Concent 33.9 G/DL (32.0-36.0) Red Cell Distribution Width 12.1 % (11.6-14.8) Platelet Count 118 K/UL (150-450) L Mean Platelet Volume 7.2 FL (6.5-10.1) Neutrophils (%) (Auto) 48.3 % (45.0-75.0) Lymphocytes (%) (Auto) 30.3 % (20.0-45.0) Monocytes (%) (Auto) 17.7 % (1.0-10.0) H Eosinophils (%) (Auto) 1.9 % (0.0-3.0) Basophils (%) (Auto) 1.9 % (0.0-2.0) Sodium Level 140 MMOL/L (136-145) Potassium Level 4.3 MMOL/L (3.5-5.1) Chloride Level 108 MMOL/L (98-107) H Carbon Dioxide Level 25 MMOL/L (21-32) Anion Gap 7 mmol/L (5-15) Blood Urea Nitrogen 32 mg/dL (7-18) H Creatinine 1.4 MG/DL (0.55-1.30) H Estimat Glomerular Filtration Rate mL/min (>60) Glucose Level 127 MG/DL (74-106) H Calcium Level 7.8 MG/DL (8.5-10.1) L Hemoglobin A1c 5.6 % (4.3-6.0) Vitamin B12 Level 654 PG/ML (193-986) Vitamin D 25-Hydroxy Pending 25-Hydroxy Vitamin D2 Pending 25-Hydroxy Vitamin D3 Pending Folate 12.7 NG/ML (8.6-58.9) Thyroid Stimulating Hormone (TSH) 0.712 uiU/mL (0.358-3.740) Arterial Blood pH 7.475 (7.350-7.450) Arterial Blood Partial Pressure CO2 26.2 mmHg (35.0-45.0) L Arterial Blood Partial Pressure O2 108.8 mmHg (75.0-100.0) H Arterial Blood HCO3 18.9 mmol/L (22.0-26.0) L Arterial Blood Oxygen Saturation 98.0 % (92.0-98.0) Arterial Blood Base Excess -3.0 Hang Test Positive Test 08/01/17 04:40 Sodium Level 141 MMOL/L (136-145) Potassium Level 4.4 MMOL/L (3.5-5.1) Chloride Level 108 MMOL/L (98-107) H Carbon Dioxide Level 22 MMOL/L (21-32) Anion Gap 11 mmol/L (5-15) Blood Urea Nitrogen 28 mg/dL (7-18) H Creatinine 1.4 MG/DL (0.55-1.30) H Estimat Glomerular Filtration Rate mL/min (>60) Glucose Level 91 MG/DL (74-106) Calcium Level 8.4 MG/DL (8.5-10.1) L Triglycerides Level 126 MG/DL (30-150) Cholesterol Level 80 MG/DL (< 200) LDL Cholesterol 35 mg/dL (<100) HDL Cholesterol 26 MG/DL (40-60) L Cholesterol/HDL Ratio 3.1 (3.3-4.4) L Free Thyroxine 1.91 NG/DL (0.76-1.46) H TROY PERALTA Aug 01, 2017 10:23
[2017-08-01] MEDS: D5 1/2NS w/KCl 20mEq 1,000 ML IV SCH (10:24)
[2017-08-01] MEDS: Heparin 5000 units/ml inj SUBQ SCH ×2 (10:26→20:40)
[2017-08-01] MEDS: guaiFENesin ER 600mg tab ORAL SCH (11:15)
[2017-08-01] MEDS: guaiFENesin 100mg/5ml Liq ud ORAL SCH ×2 (11:27→17:43)
[2017-08-01 11:41] VITALS: BP 106/69
--- NOTE | 2017-08-01 12:51 | Wound Care Consultation ---
Wound Assessment Wound Assessment #1: Wound Number: 1 Wound Present on Admission: Yes New Wound: No Status Change of Wound: No Wound Location Body Site Modif: right, lateral Wound Location Body Site: malleolus/ankle Wound Type: pressure ulcer Elias Test: Does not Elias Pressure Ulcer Stage: Deep Tissue Injury Wound Thickness: Full Thickness Wound Length: 1.0 Wound Width: 1.0 Wound Depth: utd Percent of Wound [place]/Red: 100 - deep red, c/o tender Wound Drainage Amount: Moderate Wound Drainage Odor: None/Absent Wound General Appearance: Reddened - noted with full thickness scar tissue present Wound Assessment #2: Wound Number: 2 Wound Present on Admission: Yes New Wound: No Status Change of Wound: No Wound Location Body Site Modif: mid Wound Location Body Site: sacral Wound Type: pressure ulcer Elias Test: Does not Elias Pressure Ulcer Stage: Deep Tissue Injury Wound Thickness: Full Thickness Wound Length: 4.0 Wound Width: 3.0 Wound Depth: utd Percent of Wound [place]/Red: 50 - deep red Percent of Wound Purple/Maroon: 50 Wound Drainage Amount: None Wound Drainage Odor: None/Absent Tissue Surrounding Wound: Intact Wound General Appearance: Reddened - deep red at risk for further skin breakdown,c/o tender Wound Comment #1 right lateral malleolus deep tissue injury #2 Sacral deep tissue injury. RECOMMENDATION -local wound care as ordered per protocol -turn and reposition -apply spr mattress for wound and skin management -keep clean and dry. -optimize nutrition -offload heels ,ankles -heel protectors. -Assess and notify MD for any further change of condition to skin present. DERRICK COON Aug 01, 2017 12:51
[2017-08-01 16:00] VITALS: BP 126/64
--- NOTE | 2017-08-01 16:37 | Cardiac Electrophysiology PN ---
Assessment/Plan Assessment/Plan 1. PVCs, no syncope. The patient already underwent an echocardiogram that showed ejection fraction of 55% to 60%. The patient denies any chest pain or shortness of breath. 2. History of hypertension. Stable, off antihypertensives. 3. History of prior CVA. 4. Pneumonia on IV antibiotic. 5, Dysphagia. Had swallow eval on Puree diet Subjective Subjective Transferred to nonmonitored bed. On iv abx Objective Last 24 Hour Vital Signs Date Time Temp Pulse Resp B/P (MAP) Pulse Ox O2 Delivery O2 Flow Rate FiO2 08/01/17 13:17 96 20 98 Room Air 21 08/01/17 13:08 95 18 95 Room Air 21 08/01/17 11:41 98.4 88 20 106/69 100 98.4 08/01/17 08:30 99.3 91 20 96/54 98 99.3 08/01/17 08:01 89 18 96 Room Air 21 08/01/17 07:50 88 18 93 Room Air 21 08/01/17 04:00 100.9 91 20 112/63 98 100.9 08/01/17 02:29 85 20 96 Room Air 21 08/01/17 01:56 21 08/01/17 01:55 85 20 100 Room Air 21 08/01/17 00:00 99.9 85 20 124/51 100 99.9 07/31/17 21:13 75 18 97 Room Air 21 07/31/17 20:50 21 07/31/17 20:50 75 18 97 Room Air 21 07/31/17 20:49 75 18 Room Air 21 07/31/17 20:00 97.2 65 19 108/62 95 Room Air 97.2 Intake and Output 07/31/17 08/01/17 19:00 07:00 Intake Total 1000 ml 492.5 ml Output Total 100 ml 3 ml Balance 900 ml 489.5 ml Intake IV Total 1000 ml 492.5 ml Output Urine Total 100 ml 3 ml # Bowel Movements 1 Laboratory Tests Test 08/01/17 04:40 Sodium Level 141 MMOL/L (136-145) Potassium Level 4.4 MMOL/L (3.5-5.1) Chloride Level 108 MMOL/L (98-107) H Carbon Dioxide Level 22 MMOL/L (21-32) Anion Gap 11 mmol/L (5-15) Blood Urea Nitrogen 28 mg/dL (7-18) H Creatinine 1.4 MG/DL (0.55-1.30) H Estimat Glomerular Filtration Rate mL/min (>60) Glucose Level 91 MG/DL (74-106) Calcium Level 8.4 MG/DL (8.5-10.1) L Triglycerides Level 126 MG/DL (30-150) Cholesterol Level 80 MG/DL (< 200) LDL Cholesterol 35 mg/dL (<100) HDL Cholesterol 26 MG/DL (40-60) L Cholesterol/HDL Ratio 3.1 (3.3-4.4) L Free Thyroxine 1.91 NG/DL (0.76-1.46) H Microbiology Date/Time Source Procedure Growth Status 07/31/17 08:19 Nasal Nares Influenza Types A,B Antigen (AIDAN) - Final Complete Objective HEAD AND NECK: Showed no JVD. LUNGS: Clear. CARDIOVASCULAR: Regular S1 and S2 with no gallop or murmur. ABDOMEN: Soft. EXTREMITIES: Contracture of right upper extremity. CHUCKIE VELARDE Aug 01, 2017 16:37
[2017-08-01 20:01] VITALS: BP 114/48
--- NOTE | 2017-08-01 21:56 | Neurology Progress Note ---
Interim History Interim History Interim History Mr. Beltran feels better. He feels that his mind is clearer. He says he ate a little but the appetite is not very good. The cough is better. He has had no fevers or chills. He feels generally stronger. He feels brighter.. He denies any new neurologic symptoms. Review of Systems Neuro Review of Systems Benign. Objective Physical Exam Last Vital Signs Date Time Temp Pulse Resp B/P (MAP) Pulse Ox O2 Delivery O2 Flow Rate FiO2 08/01/17 20:01 101.8 99 20 114/48 82 Room Air 101.8 08/01/17 19:23 21 Laboratory Tests Test 08/01/17 04:40 Sodium Level 141 MMOL/L (136-145) Potassium Level 4.4 MMOL/L (3.5-5.1) Chloride Level 108 MMOL/L (98-107) H Carbon Dioxide Level 22 MMOL/L (21-32) Anion Gap 11 mmol/L (5-15) Blood Urea Nitrogen 28 mg/dL (7-18) H Creatinine 1.4 MG/DL (0.55-1.30) H Estimat Glomerular Filtration Rate mL/min (>60) Glucose Level 91 MG/DL (74-106) Calcium Level 8.4 MG/DL (8.5-10.1) L Triglycerides Level 126 MG/DL (30-150) Cholesterol Level 80 MG/DL (< 200) LDL Cholesterol 35 mg/dL (<100) HDL Cholesterol 26 MG/DL (40-60) L Cholesterol/HDL Ratio 3.1 (3.3-4.4) L Free Thyroxine 1.91 NG/DL (0.76-1.46) H Neurologic Exam Objective PHYSICAL EXAMINATION: GENERAL: He is a well-developed, well-nourished, black gentleman, lying in bed , in no acute distress. HEAD: Normocephalic and atraumatic. NECK: No neck rigidity was observed. EENT: Benign. NEUROLOGICAL EXAMINATION: MENTAL STATUS EXAMINATION: He was awake and alert. He was oriented to [facility], [facility], and July 2017. He did not know the date. He was able to recall 3/3 words immediately, but could only remember 2/3 in 1 minute or 3 minutes. He was able to remember Presidents Trump through [place] only. His mathematical skills were impaired. His visuospatial function was also impaired. SPEECH: He had a mild dysarthria. LANGUAGE: He had anomia for low and mid frequency words. CRANIAL NERVE EXAMINATION: II: The visual rod were intact to confrontation testing. III, IV, : External ocular movements were full, and the pupils 3 mm in diameter, equal, round, regular, and reactive to light. V: He had normal facial sensations and the temporales, masseters, and pterygoids functioned normally. VII: He had a right greater than left VII central facial paresis. VIII: He was able to hear well and had no nystagmus. IX: The palate moved symmetrically on phonation. X: He had no hoarseness of voice. XI: The sternocleidomastoids and trapezii functioned normally. XII: The tongue was in the midline without any fasciculations or atrophy. MOTOR SYSTEM: The tone was increased in all four extremities with spasticity, more marked on the right side compared to the left. Examination of muscle mass revealed wasting of the hand muscles on the right side and foot muscles bilaterally. Examination of power revealed G 0/5 on the right except for G 3/5 in the biceps , shoulder rotators, hip rotators and quadriceps. On the left side he had G 4+/ 5 except for G 4/5 in the iliopsoas. SENSORY EXAMINATION: He responded appropriately to light touch. He was unable to cooperate for the sensory modalities. REFLEXES: 2++ on the right and trace+ on the left at the biceps, triceps and brachioradialis. 0 at the knees and ankles. The plantar response was extensor on the right and flexor on the left. COORDINATION: He was able to do finger to nose testing on the left side only. STANCE & GAIT: Could not be tested. Impression/Recommendations Diagnostic Impression 1. Mr. Elian Beltran is an 81-year-old, left-handed, black gentleman, who does have a past history of hypertension, diabetes mellitus and cerebrovascular disease who was hospitalized for an alteration in his mental state, a cough productive of sputum, fevers with chills, and generalized weakness. 2. He feels better and the mind is clearer. The cough is better. He has had no fevers or chills. He feels generally stronger. He feels brighter.He denies any new neurologic symptoms. 3. On neurological examination, at this time, he is oriented to self, [facility], and July 2017. He is able to recall 3/3 words immediately, can remember 2/3 in 1 minute or 3 minutes. He is able to remember Presidents Trump through [place] only. His mathematical skills are impaired and so is the visuospatial function. He has a mild anomia. 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 In addition, his speech is dysarthric and he has right greater than left VII central facial paresis. 4. Laboratory data on admission revealed a significant leukopenia with a WBC count of 4,700 and a low platelet count of 145,000. A chemistry panel with BUN elevated to 35 with a creatinine of 1.8. A low albumin at 2.6 and a UA with 1+ leukocyte esterase, 0-2 RBCs and 2-4 WBCs per HPF. 5. Further laboratory tests have revealed a normal B12, Folate, and TSH. 6. 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 Recommendations 1. Continue present management. 2. Continue aggressive treatment of infectious processes. 3. Out of bed in cardiac chair. 4. Observe closely. Ashley Wu M.D., M.S.P.H. ASHLEY WU Aug 01, 2017 21:56
--- NOTE | 2017-08-01 23:04 | General Progress Note ---
Assessment/Plan Assessment/Plan pneumonia encephalopathy resolving renal insufficinecy ho cva ho seizure disorder ho CM abx per ID fluids check swallow study pulmonary hygiene dvt and ulcer prhylaxis Subjective Allergies: Coded Allergies: No Known Allergies (Unverified , 10/12/15) Call to [facility], spoke with KALA Fung confirmed paperwork which indicated no known allergies to medications. Subjective pos cough no chest painno sob more alert today Objective Last 24 Hour Vital Signs Date Time Temp Pulse Resp B/P (MAP) Pulse Ox O2 Delivery O2 Flow Rate FiO2 08/01/17 20:01 101.8 99 20 114/48 82 Room Air 101.8 08/01/17 19:23 99 20 95 Room Air 21 08/01/17 19:13 21 08/01/17 19:12 99 20 93 Room Air 21 08/01/17 16:00 98.0 95 20 126/64 84 Room Air 98.0 08/01/17 13:17 96 20 98 Room Air 21 08/01/17 13:08 95 18 95 Room Air 21 08/01/17 11:41 98.4 88 20 106/69 100 98.4 08/01/17 08:30 99.3 91 20 96/54 98 99.3 08/01/17 08:01 89 18 96 Room Air 21 08/01/17 07:50 88 18 93 Room Air 21 08/01/17 04:00 100.9 91 20 112/63 98 100.9 08/01/17 02:29 85 20 96 Room Air 21 08/01/17 01:56 21 08/01/17 01:55 85 20 100 Room Air 21 08/01/17 00:00 99.9 85 20 124/51 100 99.9 Intake and Output 07/31/17 08/01/17 19:00 07:00 Intake Total 1000 ml 492.5 ml Output Total 100 ml 3 ml Balance 900 ml 489.5 ml Intake IV Total 1000 ml 492.5 ml Output Urine Total 100 ml 3 ml # Bowel Movements 1 Laboratory Tests 08/01/17 04:40: Sodium Level 141, Potassium Level 4.4, Chloride Level 108H, Carbon Dioxide Level 22, Anion Gap 11, Blood Urea Nitrogen 28H, Creatinine 1.4H, Estimat Glomerular Filtration Rate , Glucose Level 91, Calcium Level 8.4L, Triglycerides Level 126, Cholesterol Level 80, LDL Cholesterol 35, HDL Cholesterol 26L, Cholesterol/HDL Ratio 3.1L, Free Thyroxine 1.91H Height (Feet): 6 Height (Inches): 1.00 Weight (Pounds): 170 General Appearance: WD/WN, no apparent distress Neck: normal inspection Cardiovascular: normal rate Respiratory/Chest: rhonchi - bilaterally Abdomen: soft Objective right sided hemiparesis LAURA UNGER Aug 01, 2017 23:04
[2017-08-02] MEDS: D5 1/2NS w/KCl 20mEq 1,000 ML IV SCH ×2 (00:06→05:25)
[2017-08-02 00:42] VITALS: BP 92/53
[2017-08-02] MEDS: guaiFENesin 100mg/5ml Liq ud ORAL SCH ×4 (01:09→18:12)
[2017-08-02 04:00] VITALS: BP 113/58
[2017-08-02] MEDS: Piperacillin/Tazobactam 3.375 GM in NS 110 ML IVPB SCH ×3 (05:24→21:22)
[2017-08-02] MEDS: Albuterol/Ipratropium 3ml neb HHN SCH ×4 (08:00→23:47)
[2017-08-02 08:16] VITALS: BP 100/59
[2017-08-02] MEDS: Heparin 5000 units/ml inj SUBQ SCH ×2 (09:07→21:00)
[2017-08-02 12:00] VITALS: BP 108/62
--- NOTE | 2017-08-02 12:33 | Infectious Diseases Prog Note ---
Assessment/Plan Assessment/Plan antibiotics : zosyn A 1. pneumonia 2. DM 3. HTN 4. CVA P 1. continue zosyn 2. will follow up cultures Subjective Constitutional: Denies: fever, chills Respiratory: Denies: shortness of breath, dry cough Gastrointestinal/Abdominal: Denies: nausea, vomiting, diarrhea Musculoskeletal: Denies: pain Allergies: Coded Allergies: No Known Allergies (Unverified , 10/12/15) Call to [facility], spoke with KALA Fung confirmed paperwork which indicated no known allergies to medications. Objective Vital Signs Last 24 Hour Vital Signs Date Time Temp Pulse Resp B/P (MAP) Pulse Ox O2 Delivery O2 Flow Rate FiO2 08/02/17 12:00 98.0 85 20 108/62 94 98.0 08/02/17 08:16 98.4 83 20 100/59 94 98.4 08/02/17 08:09 95 20 97 Room Air 21 08/02/17 07:59 86 20 95 Room Air 21 08/02/17 07:59 21 08/02/17 04:00 97.9 82 20 113/58 97 Room Air 97.9 08/02/17 00:42 98.2 87 20 92/53 95 Room Air 98.2 08/01/17 23:41 21 08/01/17 23:40 88 20 96 Room Air 21 08/01/17 20:01 101.8 99 20 114/48 95 Room Air 101.8 08/01/17 20:00 Room Air 08/01/17 19:23 99 20 95 Room Air 21 08/01/17 19:13 21 08/01/17 19:12 99 20 93 Room Air 21 08/01/17 16:00 98.0 95 20 126/64 84 Room Air 98.0 08/01/17 13:17 96 20 98 Room Air 21 08/01/17 13:08 95 18 95 Room Air 21 Height (Feet): 6 Height (Inches): 1.00 Weight (Pounds): 170 Respiratory/Chest: lungs clear Cardiovascular: normal rate, regular rhythm, no gallop/murmur Abdomen: soft, non tender Extremities: no edema Microbiology Date/Time Source Procedure Growth Status 07/31/17 08:30 Blood Blood Culture - Preliminary NO GROWTH AFTER 24 HOURS Resulted 07/31/17 08:19 Blood Blood Culture - Preliminary NO GROWTH AFTER 24 HOURS Resulted 07/31/17 17:25 Sputum Gram Stain Pending Resulted 07/31/17 17:25 Sputum Sputum Culture - Preliminary NORMAL UPPER RESPIRATORY XAVI AT 24 ... Resulted 07/31/17 09:00 Nasal Nares MRSA Culture - Final NO METHICILLIN RESISTANT STAPH AUREUS... Complete 07/31/17 08:19 Nasal Nares Influenza Types A,B Antigen (AIDAN) - Final Complete 07/31/17 09:00 Rectum VRE Culture - Final NO VANCOMYCIN RESISTANT ENTEROCOCCUS ... Complete TROY PERALTA Aug 02, 2017 12:33
--- NOTE | 2017-08-02 13:15 | Pulmonology Progress Note ---
Assessment/Plan Problems: (1) Pneumonia (2) Sepsis (3) Dehydration (4) shortness of breath Assessment/Plan ASSESSMENT: The patient is an 81-year-old male with history of CVA, hypertension, hyperlipidemia, possible dementia, and CKD, presenting with febrile illness and a right lower lobe infiltrate likely healthcare-associated pneumonia. Given he lives in a residential facility plus or minus aspiration. PROBLEM LIST: 1. Right lower lobe infiltrate, healthcare-associated pneumonia. 2. Lactic acidosis - RESOLVED 3. Systemic inflammatory response syndrome - HEMODYNAMICALLY STABLE 4. TRUDY, on CKD - IMPROVED 5. 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 6. Prior CVA. 7. Possible dementia. 8. Hypertension. 9. Hyperlipidemia. 10. Diabetes. 11. Gout TREATMENT PLAN: 1. Optimize pulmonary hygiene/mobilize as tolerated. 2. As needed O2 to keep saturations greater than 90%. 3. Round the clock and as needed DuoNebs. 4. Continue Zosyn (D3) per ID 5. Diet per [employer] with STRICT aspiration precautions 6. Aspiration precautions. 7. DVT prophylaxis, heparin subcutaneously. 8. Monitor volumes and renal function 9. Full Code. Subjective Allergies: Coded Allergies: No Known Allergies (Unverified , 10/12/15) Call to [facility], spoke with KALA Fung confirmed paperwork which indicated no known allergies to medications. Subjective AFVSS, stable on RA, VSS noted less cough/[employer], less SOB, no F/C Objective Last 24 Hour Vital Signs Date Time Temp Pulse Resp B/P (MAP) Pulse Ox O2 Delivery O2 Flow Rate FiO2 08/02/17 12:00 98.0 85 20 108/62 94 98.0 08/02/17 08:16 98.4 83 20 100/59 94 98.4 08/02/17 08:09 95 20 97 Room Air 21 08/02/17 07:59 86 20 95 Room Air 21 08/02/17 07:59 21 08/02/17 04:00 97.9 82 20 113/58 97 Room Air 97.9 08/02/17 00:42 98.2 87 20 92/53 95 Room Air 98.2 08/01/17 23:41 21 08/01/17 23:40 88 20 96 Room Air 21 08/01/17 20:01 101.8 99 20 114/48 95 Room Air 101.8 08/01/17 20:00 Room Air 08/01/17 19:23 99 20 95 Room Air 21 08/01/17 19:13 21 08/01/17 19:12 99 20 93 Room Air 21 08/01/17 16:00 98.0 95 20 126/64 84 Room Air 98.0 08/01/17 13:17 96 20 98 Room Air 21 Intake and Output 08/01/17 08/02/17 19:00 07:00 Intake Total 522.5 ml 517.5 ml Output Total 300 ml Balance 222.5 ml 517.5 ml IV Total 522.5 ml 517.5 ml Output Urine Total 300 ml # Voids 2 General Appearance: WD/WN, no acute distress HEENT: normocephalic, atraumatic, mucous membranes moist Respiratory/Chest: chest wall non-tender, lungs clear, normal breath sounds, no respiratory distress, no accessory muscle use Cardiovascular: normal peripheral pulses, normal rate, regular rhythm Abdomen: normal bowel sounds, soft, non tender, no organomegaly, non distended Extremities: no cyanosis, no clubbing, no edema Microbiology Date/Time Source Procedure Growth Status 07/31/17 08:30 Blood Blood Culture - Preliminary NO GROWTH AFTER 24 HOURS Resulted 07/31/17 08:19 Blood Blood Culture - Preliminary NO GROWTH AFTER 24 HOURS Resulted 07/31/17 17:25 Sputum Gram Stain Pending Resulted 07/31/17 17:25 Sputum Sputum Culture - Preliminary NORMAL UPPER RESPIRATORY XAVI AT 24 ... Resulted 07/31/17 09:00 Nasal Nares MRSA Culture - Final NO METHICILLIN RESISTANT STAPH AUREUS... Complete 07/31/17 08:19 Nasal Nares Influenza Types A,B Antigen (AIDAN) - Final Complete 07/31/17 09:00 Rectum VRE Culture - Final NO VANCOMYCIN RESISTANT ENTEROCOCCUS ... Complete Current Medications Medications (Trade) Dose Ordered Sig/Justina Route PRN Reason Start Time Stop Time Status Last Admin Dose Admin Acetaminophen (Tylenol) 650 mg Q4H PRN ORAL Mild Pain/Temp > 100.5 08/01/17 06:30 08/31/17 06:29 Acetaminophen (Tylenol) 650 mg Q4H PRN RECTAL Mild Pain (Pain Scale 1-3) 08/01/17 06:30 08/31/17 06:29 Albuterol/ Ipratropium (Albuterol/ Ipratropium) 3 ml Q4H PRN HHN Shortness of Breath 07/31/17 13:30 08/05/17 13:29 Albuterol/ Ipratropium (Albuterol/ Ipratropium) 3 ml Q6HRT HHN 07/31/17 19:00 08/05/17 18:59 08/02/17 08:00 Dextrose/ Electrolytes 1,000 ml @ 70 mls/hr [id number] IV 07/31/17 19:30 08/30/17 19:29 08/02/17 05:25 Guaifenesin (Robitussin) 200 mg Q6H ORAL 08/01/17 12:00 08/31/17 11:59 08/02/17 05:41 Guaifenesin/ Dextromethorphan (Robitussin DM) 10 ml Q4H PRN ORAL For Cough 07/31/17 13:30 08/30/17 13:29 Heparin Sodium (Porcine) (Heparin 5000 units/ml) 5,000 units EVERY 12 HOURS SUBQ 07/31/17 21:00 08/30/17 20:59 08/02/17 09:07 Piperacillin Sod/ Tazobactam Sod 3.375 gm/Sodium Chloride 110 ml @ 27.5 mls/hr EVERY 8 HOURS IVPB 07/31/17 14:30 08/05/17 14:29 08/02/17 05:24 VANDANA KENT M.D. Aug 02, 2017 13:15
--- NOTE | 2017-08-02 13:48 | Neurology Progress Note ---
Interim History Interim History Interim History Mr. Beltran feels better. He feels that his mind is clearer. He says he ate a little but the appetite is stiil poor due to a bad taste in the mouth. The cough is better. He has had no fevers or chills. He feels generally stronger. He feels brighter. He denies any new neurologic symptoms. Review of Systems Neuro Review of Systems Benign. Objective Physical Exam Last Vital Signs Date Time Temp Pulse Resp B/P (MAP) Pulse Ox O2 Delivery O2 Flow Rate FiO2 08/02/17 12:00 98.0 85 20 108/62 94 98.0 08/02/17 08:09 Room Air 21 Neurologic Exam Objective PHYSICAL EXAMINATION: GENERAL: He is a well-developed, well-nourished, black gentleman, lying in bed , in no acute distress. HEAD: Normocephalic and atraumatic. NECK: No neck rigidity was observed. EENT: Benign. NEUROLOGICAL EXAMINATION: MENTAL STATUS EXAMINATION: He was awake and alert. He was oriented to [facility], [facility], and July 2017. He did not know the date. He was able to recall 3/3 words immediately, but could only remember 2/3 in 1 minute or 3 minutes. He was able to remember Presidents Trump through [place] only. His mathematical skills were impaired. His visuospatial function was also impaired. SPEECH: He had a mild dysarthria. LANGUAGE: He had anomia for low and mid frequency words. CRANIAL NERVE EXAMINATION: II: The visual rod were intact to confrontation testing. III, IV, : External ocular movements were full, and the pupils 3 mm in diameter, equal, round, regular, and reactive to light. V: He had normal facial sensations and the temporales, masseters, and pterygoids functioned normally. VII: He had a right greater than left VII central facial paresis. VIII: He was able to hear well and had no nystagmus. IX: The palate moved symmetrically on phonation. X: He had no hoarseness of voice. XI: The sternocleidomastoids and trapezii functioned normally. XII: The tongue was in the midline without any fasciculations or atrophy. MOTOR SYSTEM: The tone was increased in all four extremities with spasticity, more marked on the right side compared to the left. Examination of muscle mass revealed wasting of the hand muscles on the right side and foot muscles bilaterally. Examination of power revealed G 0/5 on the right except for G 3/5 in the biceps , shoulder rotators, hip rotators and quadriceps. On the left side he had G 4+/ 5 except for G 4/5 in the iliopsoas. SENSORY EXAMINATION: He responded appropriately to light touch. He was unable to cooperate for the sensory modalities. REFLEXES: 2++ on the right and trace+ on the left at the biceps, triceps and brachioradialis. 0 at the knees and ankles. The plantar response was extensor on the right and flexor on the left. COORDINATION: He was able to do finger to nose testing on the left side only. STANCE & GAIT: Could not be tested. Impression/Recommendations Diagnostic Impression 1. Mr. Elian Beltran is an 81-year-old, left-handed, black gentleman, who does have a past history of hypertension, diabetes mellitus and cerebrovascular disease who was hospitalized for an alteration in his mental state, a cough productive of sputum, fevers with chills, and generalized weakness. 2. He feels better and the mind is clearer. The cough is better. He has had no fevers or chills. He feels generally stronger. He feels brighter.He denies any new neurologic symptoms. His appetite is still poor. 3. On neurological examination, at this time, he is oriented to self, [facility], and July 2017. He is able to recall 3/3 words immediately, can remember 2/3 in 1 minute or 3 minutes. He is able to remember Presidents Trump through [place] only. His mathematical skills are impaired and so is the visuospatial function. He has a mild anomia. 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 In addition, his speech is dysarthric and he has right greater than left VII central facial paresis. 4. Laboratory data on admission revealed a significant leukopenia with a WBC count of 4,700 and a low platelet count of 145,000. A chemistry panel with BUN elevated to 35 with a creatinine of 1.8. A low albumin at 2.6 and a UA with 1+ leukocyte esterase, 0-2 RBCs and 2-4 WBCs per HPF. 5. Further laboratory tests have revealed a normal B12, Folate, and TSH. 6. 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 Recommendations 1. Continue present management. 2. Continue aggressive treatment of infectious processes. 3. Out of bed in cardiac chair. 4. Observe closely. Ashley Wu M.D., M.S.P.Rebeka. ASHLEY WU Aug 02, 2017 13:48
[2017-08-02 16:00] VITALS: BP 123/71
--- NOTE | 2017-08-02 16:08 | Cardiac Electrophysiology PN ---
Assessment/Plan Assessment/Plan 1. PVCs, no syncope. Echocardiogram that showed ejection fraction of 55% to 60% . The patient denies any chest pain or shortness of breath. 2. History of hypertension. Stable, off antihypertensives. 3. History of prior CVA. 4. Pneumonia on IV antibiotic. 5, Dysphagia. Had swallow eval on Puree diet Subjective Subjective On nonmonitored bed. On iv abx Objective Last 24 Hour Vital Signs Date Time Temp Pulse Resp B/P (MAP) Pulse Ox O2 Delivery O2 Flow Rate FiO2 08/02/17 14:41 85 20 94 Room Air 21 08/02/17 14:27 85 20 94 Room Air 21 08/02/17 14:27 21 08/02/17 12:00 98.0 85 20 108/62 94 98.0 08/02/17 08:16 98.4 83 20 100/59 94 98.4 08/02/17 08:09 95 20 97 Room Air 21 08/02/17 07:59 86 20 95 Room Air 21 08/02/17 07:59 21 08/02/17 04:00 97.9 82 20 113/58 97 Room Air 97.9 08/02/17 00:42 98.2 87 20 92/53 95 Room Air 98.2 08/01/17 23:41 21 08/01/17 23:40 88 20 96 Room Air 21 08/01/17 20:01 101.8 99 20 114/48 95 Room Air 101.8 08/01/17 20:00 Room Air 08/01/17 19:23 99 20 95 Room Air 21 08/01/17 19:13 21 08/01/17 19:12 99 20 93 Room Air 21 Intake and Output 08/01/17 08/02/17 19:00 07:00 Intake Total 522.5 ml 517.5 ml Output Total 300 ml Balance 222.5 ml 517.5 ml IV Total 522.5 ml 517.5 ml Output Urine Total 300 ml # Voids 2 Microbiology Date/Time Source Procedure Growth Status 07/31/17 08:30 Blood Blood Culture - Preliminary NO GROWTH AFTER 24 HOURS Resulted 07/31/17 08:19 Blood Blood Culture - Preliminary NO GROWTH AFTER 24 HOURS Resulted 07/31/17 17:25 Sputum Gram Stain - Final Resulted 07/31/17 17:25 Sputum Sputum Culture - Preliminary NORMAL UPPER RESPIRATORY XAVI AT 24 ... Resulted 07/31/17 09:00 Nasal Nares MRSA Culture - Final NO METHICILLIN RESISTANT STAPH AUREUS... Complete 07/31/17 08:19 Nasal Nares Influenza Types A,B Antigen (AIDAN) - Final Complete 07/31/17 09:00 Rectum VRE Culture - Final NO VANCOMYCIN RESISTANT ENTEROCOCCUS ... Complete Objective HEAD AND NECK: No JVD. LUNGS: Clear. CARDIOVASCULAR: Regular S1 and S2 with no gallop or murmur. ABDOMEN: Soft. EXTREMITIES: Contracture of right upper extremity. CHUCKIE VELARDE Aug 02, 2017 16:07
[2017-08-02 20:01] VITALS: BP 111/43
--- NOTE | 2017-08-02 23:08 | General Progress Note ---
Assessment/Plan Assessment/Plan pneumonia encephalopathy resolving renal insufficinecy ho cva ho seizure disorder ho CM abx per ID fluids swallow eval noted pulmonary hygiene dvt and ulcer prhylaxis Subjective Allergies: Coded Allergies: No Known Allergies (Unverified , 10/12/15) Call to [facility], spoke with KALA Fung confirmed paperwork which indicated no known allergies to medications. Subjective pos cough no chest pain no sob alert Objective Last 24 Hour Vital Signs Date Time Temp Pulse Resp B/P (MAP) Pulse Ox O2 Delivery O2 Flow Rate FiO2 08/02/17 20:01 97.9 84 20 111/43 96 Room Air 97.9 08/02/17 19:12 68 18 99 Room Air 21 08/02/17 19:01 21 08/02/17 19:01 70 20 98 Room Air 21 08/02/17 16:00 98.1 47 20 123/71 98 98.1 08/02/17 14:41 85 20 94 Room Air 21 08/02/17 14:27 85 20 94 Room Air 21 08/02/17 14:27 21 08/02/17 12:00 98.0 85 20 108/62 94 98.0 08/02/17 08:16 98.4 83 20 100/59 94 98.4 08/02/17 08:09 95 20 97 Room Air 21 08/02/17 07:59 86 20 95 Room Air 21 08/02/17 07:59 21 08/02/17 04:00 97.9 82 20 113/58 97 Room Air 97.9 08/02/17 00:42 98.2 87 20 92/53 95 Room Air 98.2 08/01/17 23:41 21 08/01/17 23:40 88 20 96 Room Air 21 Intake and Output 08/01/17 08/02/17 19:00 07:00 Intake Total 522.5 ml 517.5 ml Output Total 300 ml Balance 222.5 ml 517.5 ml IV Total 522.5 ml 517.5 ml Output Urine Total 300 ml # Voids 2 Height (Feet): 6 Height (Inches): 1.00 Weight (Pounds): 170 General Appearance: WD/WN Neck: supple Cardiovascular: normal rate Respiratory/Chest: rhonchi - bilaterally Edema: no edema noted Arm (L), no edema noted Arm (R), no edema noted Leg (L), no edema noted Leg (R), no edema noted Pedal (L), no edema noted Pedal (R), no edema noted Generalized Objective right sided hemiparesis LAURA UNGER Aug 02, 2017 23:08
[2017-08-03] VITALS (7 sets, daily range): BP systolic 86–136; BP diastolic 57–75
[2017-08-03] MEDS: guaiFENesin 100mg/5ml Liq ud ORAL SCH ×4 (00:40→18:00)
[2017-08-03] MEDS: Piperacillin/Tazobactam 3.375 GM in NS 110 ML IVPB SCH ×3 (06:10→21:51)
[2017-08-03] MEDS: Albuterol/Ipratropium 3ml neb HHN SCH ×4 (07:39→23:26)
[2017-08-03] MEDS: Heparin 5000 units/ml inj SUBQ SCH ×2 (09:00→20:27)
--- NOTE | 2017-08-03 10:51 | Infectious Diseases Prog Note ---
Assessment/Plan Assessment/Plan antibiotics : zosyn A 1. pneumonia 2. DM 3. HTN 4. CVA P 1. continue zosyn 2. will follow up cultures Subjective ROS Limited/Unobtainable: Yes Allergies: Coded Allergies: No Known Allergies (Unverified , 10/12/15) Call to [facility], spoke with KALA Fung confirmed paperwork which indicated no known allergies to medications. Objective Vital Signs Last 24 Hour Vital Signs Date Time Temp Pulse Resp B/P (MAP) Pulse Ox O2 Delivery O2 Flow Rate FiO2 08/03/17 08:16 97.8 86 20 105/65 96 97.8 08/03/17 08:00 77 20 99 Room Air 21 08/03/17 07:40 21 08/03/17 07:39 74 18 97 Room Air 21 08/03/17 05:43 106/63 08/03/17 04:11 98.2 72 20 86/57 96 Room Air 98.2 08/03/17 00:30 96.9 79 20 125/65 97 Room Air 96.9 08/02/17 23:55 74 20 99 Room Air 21 08/02/17 23:48 21 08/02/17 23:47 72 18 96 Room Air 21 08/02/17 20:01 97.9 84 20 111/43 96 Room Air 97.9 08/02/17 19:12 68 18 99 Room Air 21 08/02/17 19:01 21 08/02/17 19:01 70 20 98 Room Air 21 08/02/17 16:00 98.1 47 20 123/71 98 98.1 08/02/17 14:41 85 20 94 Room Air 21 08/02/17 14:27 85 20 94 Room Air 21 08/02/17 14:27 21 08/02/17 12:00 98.0 85 20 108/62 94 98.0 Height (Feet): 6 Height (Inches): 1.00 Weight (Pounds): 170 Respiratory/Chest: lungs clear Cardiovascular: normal rate, regular rhythm, no gallop/murmur Abdomen: soft, non tender Extremities: no edema Microbiology Date/Time Source Procedure Growth Status 07/31/17 17:25 Sputum Gram Stain - Final Complete 07/31/17 17:25 Sputum Sputum Culture - Final NORMAL UPPER RESPIRATORY XAVI PRESENT Complete TROY PERALTA 10, 2018 10:51
--- NOTE | 2017-08-03 14:03 | Neurology Progress Note ---
Interim History Interim History Interim History Mr. Beltran feels much better. The mind is clearer. He ate a little better but the appetite is still poor due to a bad taste in the mouth. The cough is better. He has had no fevers or chills. He feels generally stronger. He feels brighter. He denies any new neurologic symptoms. He is eager to go home soon. Review of Systems Neuro Review of Systems Benign. Objective Physical Exam Last Vital Signs Date Time Temp Pulse Resp B/P (MAP) Pulse Ox O2 Delivery O2 Flow Rate FiO2 08/03/17 13:02 80 20 98 Room Air 21 08/03/17 11:43 97.5 95/62 97.5 Neurologic Exam Objective PHYSICAL EXAMINATION: GENERAL: He is a well-developed, well-nourished, black gentleman, lying in bed , in no acute distress. HEAD: Normocephalic and atraumatic. NECK: No neck rigidity was observed. EENT: Benign. NEUROLOGICAL EXAMINATION: MENTAL STATUS EXAMINATION: He was awake and alert. He was oriented to [facility], and July 2017. He did not know the date. He was able to recall 3/3 words immediately, but could only remember 2/3 in 1 minute or 3 minutes. He was able to remember Presidents Trump through [place] Albert only. His mathematical skills were impaired. His visuospatial function was also impaired. SPEECH: He had a mild dysarthria. LANGUAGE: He had anomia for low and mid frequency words. CRANIAL NERVE EXAMINATION: II: The visual rod were intact to confrontation testing. III, IV, : External ocular movements were full, and the pupils 3 mm in diameter, equal, round, regular, and reactive to light. V: He had normal facial sensations and the temporales, masseters, and pterygoids functioned normally. VII: He had a right greater than left VII central facial paresis. VIII: He was able to hear well and had no nystagmus. IX: The palate moved symmetrically on phonation. X: He had no hoarseness of voice. XI: The sternocleidomastoids and trapezii functioned normally. XII: The tongue was in the midline without any fasciculations or atrophy. MOTOR SYSTEM: The tone was increased in all four extremities with spasticity, more marked on the right side compared to the left. Examination of muscle mass revealed wasting of the hand muscles on the right side and foot muscles bilaterally. Examination of power revealed G 0/5 on the right except for G 3/5 in the biceps , shoulder rotators, hip rotators and quadriceps. On the left side he had G 4+/ 5 except for G 4/5 in the iliopsoas. SENSORY EXAMINATION: He responded appropriately to light touch. He was unable to cooperate for the sensory modalities. REFLEXES: 2++ on the right and trace+ on the left at the biceps, triceps and brachioradialis. 0 at the knees and ankles. The plantar response was extensor on the right and flexor on the left. COORDINATION: He was able to do finger to nose testing on the left side only. STANCE & GAIT: Could not be tested. Impression/Recommendations Diagnostic Impression 1. Mr. Elian Beltran is an 81-year-old, left-handed, black gentleman, who does have a past history of hypertension, diabetes mellitus and cerebrovascular disease who was hospitalized for an alteration in his mental state, a cough productive of sputum, fevers with chills, and generalized weakness. 2. He feels much better and the mind is clear. The cough is better. He has had no fevers or chills. He feels generally stronger. He feels brighter. He denies any new neurologic symptoms. His appetite is still poor. 3. On neurological examination, at this time, he is oriented to self, [facility], and July 2017. He is able to recall 3/3 words immediately, can remember 2/3 in 1 minute or 3 minutes. He is able to remember Presidents Trump through [place] only. His mathematical skills are impaired and so is the visuospatial function. He has a mild anomia. 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 In addition, his speech is dysarthric and he has right greater than left VII central facial paresis. 4. Laboratory data on admission revealed a significant leukopenia with a WBC count of 4,700 and a low platelet count of 145,000. A chemistry panel with BUN elevated to 35 with a creatinine of 1.8. A low albumin at 2.6 and a UA with 1+ leukocyte esterase, 0-2 RBCs and 2-4 WBCs per HPF. 5. Further laboratory tests have revealed a normal B12, Folate, and TSH. 6. 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 Recommendations 1. Continue present management. 2. Continue aggressive treatment of infectious processes. 3. Out of bed in cardiac chair. 4. Observe closely. Ashley Wu M.D., M.S.P.Rebeka. ASHLEY WU Aug 03, 2017 14:03
--- NOTE | 2017-08-03 15:56 | Cardiac Electrophysiology PN ---
Assessment/Plan Assessment/Plan 1. PVCs, no syncope. Echocardiogram showed ejection fraction of 55% to 60%. The patient denies any chest pain or shortness of breath. 2. History of hypertension. Stable, off antihypertensives. 3. History of prior CVA. 4. Pneumonia on IV antibiotic. 5, Dysphagia. Had swallow eval on Puree diet DW RN Subjective Subjective Comfortable in NAD. No events. RN at bedside. On iv abx Objective Last 24 Hour Vital Signs Date Time Temp Pulse Resp B/P (MAP) Pulse Ox O2 Delivery O2 Flow Rate FiO2 08/03/17 13:02 80 20 98 Room Air 21 08/03/17 12:54 21 08/03/17 12:54 79 18 96 Room Air 21 08/03/17 11:43 97.5 82 19 95/62 95 97.5 08/03/17 08:16 97.8 86 20 105/65 96 97.8 08/03/17 08:16 Room Air 08/03/17 08:00 77 20 99 Room Air 08/03/17 07:40 21 08/03/17 07:39 74 18 97 Room Air 21 08/03/17 05:43 106/63 08/03/17 04:11 98.2 72 20 86/57 96 Room Air 98.2 08/03/17 00:30 96.9 79 20 125/65 97 Room Air 96.9 08/02/17 23:55 74 20 99 Room Air 21 08/02/17 23:48 21 08/02/17 23:47 72 18 96 Room Air 21 08/02/17 20:01 97.9 84 20 111/43 96 Room Air 97.9 08/02/17 19:12 68 18 99 Room Air 21 08/02/17 19:01 21 08/02/17 19:01 70 20 98 Room Air 21 08/02/17 16:00 98.1 47 20 123/71 98 98.1 Intake and Output 08/02/17 08/03/17 19:00 07:00 Intake Total 652.5 ml 170.0 ml Balance 652.5 ml 170.0 ml Intake Oral 360 ml 60 ml IV Total 292.5 ml 110.0 ml # Voids 3 1 Microbiology Date/Time Source Procedure Growth Status 07/31/17 17:25 Sputum Gram Stain - Final Complete 07/31/17 17:25 Sputum Sputum Culture - Final NORMAL UPPER RESPIRATORY XAVI PRESENT Complete Objective HEAD AND NECK: No JVD. LUNGS: Clear. CARDIOVASCULAR: Regular S1 and S2 with no gallop or murmur. ABDOMEN: Soft. EXTREMITIES: Contracture of right upper extremity. CHUCKIE VELARDE Aug 03, 2017 15:56
--- NOTE | 2017-08-03 16:02 | Pulmonology Progress Note ---
Assessment/Plan Assessment/Plan PROBLEM LIST: 1. Right lower lobe infiltrate, healthcare-associated pneumonia. 2. Lactic acidosis - RESOLVED 3. Systemic inflammatory response syndrome - HEMODYNAMICALLY STABLE 4. TRUDY, on CKD - IMPROVED 5. 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 6. Prior CVA. 7. Possible dementia. 8. Hypertension. 9. Hyperlipidemia. 10. Diabetes. 11. Gout TREATMENT PLAN: 1. Optimize pulmonary hygiene/mobilize as tolerated. 2. As needed O2 to keep saturations greater than 90%. 3. Round the clock and as needed DuoNebs. 4. Continue Zosyn per ID 5. Diet per COMPRESSOR OPERATOR PORTABLE with STRICT aspiration precautions 6. Aspiration precautions. 7. DVT prophylaxis, heparin subcutaneously. 8. Monitor volumes and renal function 9. Full Code. 10. dc planning tentative Saturday Subjective ROS Limited/Unobtainable: Yes Constitutional: Reports: no symptoms HEENT: Repors: no symptoms Respiratory: Reports: no symptoms Cardiovascular: Reports: no symptoms Gastrointestinal/Abdominal: Reports: no symptoms Allergies: Coded Allergies: No Known Allergies (Unverified , 10/12/15) Call to [facility], spoke with KALA Fung confirmed paperwork which indicated no known allergies to medications. Subjective no new events tolerating po modified no fever not getting oob Objective Last 24 Hour Vital Signs Date Time Temp Pulse Resp B/P (MAP) Pulse Ox O2 Delivery O2 Flow Rate FiO2 08/03/17 13:02 80 20 98 Room Air 21 08/03/17 12:54 21 08/03/17 12:54 79 18 96 Room Air 21 08/03/17 11:43 97.5 82 19 95/62 95 97.5 08/03/17 08:16 97.8 86 20 105/65 96 97.8 08/03/17 08:16 Room Air 08/03/17 08:00 77 20 99 Room Air 21 08/03/17 07:40 21 08/03/17 07:39 74 18 97 Room Air 21 08/03/17 05:43 106/63 08/03/17 04:11 98.2 72 20 86/57 96 Room Air 98.2 08/03/17 00:30 96.9 79 20 125/65 97 Room Air 96.9 08/02/17 23:55 74 20 99 Room Air 21 08/02/17 23:48 21 08/02/17 23:47 72 18 96 Room Air 21 08/02/17 20:01 97.9 84 20 111/43 96 Room Air 97.9 08/02/17 19:12 68 18 99 Room Air 21 08/02/17 19:01 21 08/02/17 19:01 70 20 98 Room Air 21 Intake and Output 08/02/17 08/03/17 19:00 07:00 Intake Total 652.5 ml 170.0 ml Balance 652.5 ml 170.0 ml Intake Oral 360 ml 60 ml IV Total 292.5 ml 110.0 ml # Voids 3 1 General Appearance: WD/WN Respiratory/Chest: normal breath sounds Cardiovascular: normal rate, regular rhythm Abdomen: soft, non tender, no organomegaly Skin: no rash Neurologic/Psychiatric: abnormal gait, oriented x 3 Microbiology Date/Time Source Procedure Growth Status 07/31/17 17:25 Sputum Gram Stain - Final Complete 07/31/17 17:25 Sputum Sputum Culture - Final NORMAL UPPER RESPIRATORY XAVI PRESENT Complete Current Medications Medications (Trade) Dose Ordered Sig/Justina Route PRN Reason Start Time Stop Time Status Last Admin Dose Admin Acetaminophen (Tylenol) 650 mg Q4H PRN ORAL Mild Pain/Temp > 100.5 08/01/17 06:30 08/31/17 06:29 Acetaminophen (Tylenol) 650 mg Q4H PRN RECTAL Mild Pain (Pain Scale 1-3) 08/01/17 06:30 08/31/17 06:29 Albuterol/ Ipratropium (Albuterol/ Ipratropium) 3 ml Q4H PRN HHN Shortness of Breath 07/31/17 13:30 08/05/17 13:29 Albuterol/ Ipratropium (Albuterol/ Ipratropium) 3 ml Q6HRT HHN 07/31/17 19:00 08/05/17 18:59 08/03/17 12:54 Guaifenesin (Robitussin) 200 mg Q6H ORAL 08/01/17 12:00 08/31/17 11:59 08/03/17 00:40 Guaifenesin/ Dextromethorphan (Robitussin DM) 10 ml Q4H PRN ORAL For Cough 07/31/17 13:30 08/30/17 13:29 Heparin Sodium (Porcine) (Heparin 5000 units/ml) 5,000 units EVERY 12 HOURS SUBQ 07/31/17 21:00 08/30/17 20:59 08/02/17 09:07 Piperacillin Sod/ Tazobactam Sod 3.375 gm/Sodium Chloride 110 ml @ 27.5 mls/hr EVERY 8 HOURS IVPB 07/31/17 14:30 08/05/17 14:29 08/03/17 15:34 NICOLA KEVIN DO Aug 03, 2017 16:02
--- NOTE | 2017-08-03 21:34 | General Progress Note ---
Assessment/Plan Assessment/Plan pneumonia encephalopathy resolving renal insufficinecy ho cva ho seizure disorder ho CM abx per ID fluids swallow eval noted pulmonary hygiene PT/OT/ST dvt and ulcer prhylaxis Subjective Allergies: Coded Allergies: No Known Allergies (Unverified , 10/12/15) Call to [facility], spoke with KALA Fung confirmed paperwork which indicated no known allergies to medications. Subjective pos cough no chest pain no sob alert Objective Last 24 Hour Vital Signs Date Time Temp Pulse Resp B/P (MAP) Pulse Ox O2 Delivery O2 Flow Rate FiO2 08/03/17 20:00 98.1 78 17 136/75 98.1 08/03/17 19:39 78 20 99 Room Air 21 08/03/17 19:26 21 08/03/17 19:25 77 18 97 Room Air 21 08/03/17 16:00 97.7 74 20 112/66 97 97.7 08/03/17 16:00 Room Air 08/03/17 13:02 80 20 98 Room Air 21 08/03/17 12:54 21 08/03/17 12:54 79 18 96 Room Air 21 08/03/17 11:43 97.5 82 19 95/62 95 97.5 08/03/17 11:43 Room Air 08/03/17 08:16 97.8 86 20 105/65 96 97.8 08/03/17 08:16 Room Air 08/03/17 08:00 77 20 99 Room Air 21 08/03/17 07:40 21 08/03/17 07:39 74 18 97 Room Air 21 08/03/17 05:43 106/63 08/03/17 04:11 98.2 72 20 86/57 96 Room Air 98.2 08/03/17 00:30 96.9 79 20 125/65 97 Room Air 96.9 08/02/17 23:55 74 20 99 Room Air 21 08/02/17 23:48 21 08/02/17 23:47 72 18 96 Room Air 21 Intake and Output 08/02/17 08/03/17 19:00 07:00 Intake Total 652.5 ml 170.0 ml Balance 652.5 ml 170.0 ml Intake Oral 360 ml 60 ml IV Total 292.5 ml 110.0 ml # Voids 3 1 Height (Feet): 6 Height (Inches): 1.00 Weight (Pounds): 170 General Appearance: WD/WN Neck: supple Cardiovascular: normal rate Respiratory/Chest: lungs clear Abdomen: soft Objective right sided hemiparesis LAURA UNGER Aug 03, 2017 21:34
[2017-08-04] VITALS (7 sets, daily range): BP systolic 92–130; BP diastolic 55–78
[2017-08-04] MEDS: guaiFENesin 100mg/5ml Liq ud ORAL SCH ×6 (05:17→23:59)
[2017-08-04] MEDS: Piperacillin/Tazobactam 3.375 GM in NS 110 ML IVPB SCH ×3 (06:03→14:00)
--- NOTE | 2017-08-04 07:09 | Pulmonology Progress Note ---
Assessment/Plan Assessment/Plan PROBLEM LIST: 1. Right lower lobe infiltrate, healthcare-associated pneumonia. 2. Lactic acidosis - RESOLVED 3. Systemic inflammatory response syndrome - HEMODYNAMICALLY STABLE 4. TRUDY, on CKD - IMPROVED 5. 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 6. Prior CVA. 7. Possible dementia. 8. Hypertension. 9. Hyperlipidemia. 10. Diabetes. 11. Gout TREATMENT PLAN: 1 improving 2. o2 3. nebs 4. Continue Zosyn per ID 5. Diet per PEOPLESOFT TALEO MANAGER with STRICT aspiration precautions 6. Aspiration precautions. 7. DVT prophylaxis 8. Monitor volumes and renal function 9. Full Code. 10. dc planning tentative Saturday Subjective ROS Limited/Unobtainable: Yes Constitutional: Reports: no symptoms HEENT: Repors: no symptoms Respiratory: Reports: no symptoms Gastrointestinal/Abdominal: Reports: no symptoms Allergies: Coded Allergies: No Known Allergies (Unverified , 10/12/15) Call to [facility], spoke with KALA Fung confirmed paperwork which indicated no known allergies to medications. Subjective no new events overnight tolerating po modified no fever not getting oob remains on o2 Objective Last 24 Hour Vital Signs Date Time Temp Pulse Resp B/P (MAP) Pulse Ox O2 Delivery O2 Flow Rate FiO2 08/04/17 06:03 98.0 08/04/17 04:56 Room Air 08/04/17 04:00 98.0 80 16 130/72 95 98.0 08/04/17 02:40 98.1 08/04/17 01:41 98.1 08/04/17 00:22 94 Room Air 08/04/17 00:00 98.1 84 16 126/78 98.1 08/03/17 23:50 82 20 98 Room Air 21 08/03/17 23:50 21 08/03/17 23:42 82 18 96 Room Air 21 08/03/17 20:00 97 Room Air 08/03/17 20:00 98.1 78 17 136/75 98.1 08/03/17 19:39 78 20 99 Room Air 21 08/03/17 19:26 21 08/03/17 19:25 77 18 97 Room Air 21 08/03/17 16:00 97.7 74 20 112/66 97 97.7 08/03/17 16:00 Room Air 08/03/17 13:02 80 20 98 Room Air 21 08/03/17 12:54 21 08/03/17 12:54 79 18 96 Room Air 21 08/03/17 11:43 97.5 82 19 95/62 95 97.5 08/03/17 11:43 Room Air 08/03/17 08:16 97.8 86 20 105/65 96 97.8 08/03/17 08:16 Room Air 08/03/17 08:00 77 20 99 Room Air 21 08/03/17 07:40 21 08/03/17 07:39 74 18 97 Room Air 21 Intake and Output 08/03/17 08/04/17 19:00 07:00 Intake Total 360 ml 110.0 ml Balance 360 ml 110.0 ml IV Total 110.0 ml Tube Feeding 360 ml # Voids 2 1 General Appearance: WD/WN Respiratory/Chest: chest wall non-tender, lungs clear, normal breath sounds Cardiovascular: normal rate, regular rhythm Abdomen: normal bowel sounds, soft, non tender, no organomegaly Extremities: no cyanosis Skin: no rash Neurologic/Psychiatric: alert Lymphatic: no neck adenopathy, no groin adenopathy Current Medications Medications (Trade) Dose Ordered Sig/Justina Route PRN Reason Start Time Stop Time Status Last Admin Dose Admin Acetaminophen (Tylenol) 650 mg Q4H PRN ORAL Mild Pain/Temp > 100.5 08/01/17 06:30 08/31/17 06:29 08/04/17 06:03 Acetaminophen (Tylenol) 650 mg Q4H PRN RECTAL Mild Pain (Pain Scale 1-3) 08/01/17 06:30 08/31/17 06:29 Albuterol/ Ipratropium (Albuterol/ Ipratropium) 3 ml Q4H PRN HHN Shortness of Breath 07/31/17 13:30 08/05/17 13:29 Albuterol/ Ipratropium (Albuterol/ Ipratropium) 3 ml Q6HRT HHN 07/31/17 19:00 08/05/17 18:59 08/03/17 23:26 Guaifenesin (Robitussin) 200 mg Q6H ORAL 08/01/17 12:00 08/31/17 11:59 08/03/17 00:40 Guaifenesin/ Dextromethorphan (Robitussin DM) 10 ml Q4H PRN ORAL For Cough 07/31/17 13:30 08/30/17 13:29 Heparin Sodium (Porcine) (Heparin 5000 units/ml) 5,000 units EVERY 12 HOURS SUBQ 07/31/17 21:00 08/30/17 20:59 08/02/17 09:07 Piperacillin Sod/ Tazobactam Sod 3.375 gm/Sodium Chloride 110 ml @ 27.5 mls/hr EVERY 8 HOURS IVPB 07/31/17 14:30 08/05/17 14:29 08/04/17 06:03 NICOLA KEVIN DO Aug 04, 2017 07:09
[2017-08-04] MEDS: Albuterol/Ipratropium 3ml neb HHN SCH ×3 (07:36→19:43)
[2017-08-04] MEDS: Heparin 5000 units/ml inj SUBQ SCH ×2 (09:00→20:50)
--- NOTE | 2017-08-04 09:07 | Infectious Diseases Prog Note ---
Assessment/Plan Assessment/Plan A 1. pneumonia 2. DM 3. HTN 4. CVA P 1. continue zosyn Subjective ROS Limited/Unobtainable: No HEENT: Reports: no symptoms Cardiovascular: Reports: no symptoms Gastrointestinal/Abdominal: Reports: no symptoms Musculoskeletal: Reports: pain, other - in right leg Allergies: Coded Allergies: No Known Allergies (Unverified , 10/12/15) Call to [facility], spoke with KALA Fung confirmed paperwork which indicated no known allergies to medications. Objective Vital Signs Last 24 Hour Vital Signs Date Time Temp Pulse Resp B/P (MAP) Pulse Ox O2 Delivery O2 Flow Rate FiO2 08/04/17 08:00 96.6 84 18 106/64 100 Room Air 96.6 08/04/17 07:45 80 20 98 Room Air 21 08/04/17 07:30 77 18 95 Room Air 21 08/04/17 07:02 98.0 08/04/17 06:03 98.0 08/04/17 04:56 Room Air 08/04/17 04:00 98.0 80 16 130/72 95 98.0 08/04/17 01:41 98.1 08/04/17 00:22 94 Room Air 08/04/17 00:00 98.1 84 16 126/78 98.1 08/03/17 23:50 82 20 98 Room Air 21 08/03/17 23:50 21 08/03/17 23:42 82 18 96 Room Air 21 08/03/17 20:00 97 Room Air 08/03/17 20:00 98.1 78 17 136/75 98.1 08/03/17 19:39 78 20 99 Room Air 21 08/03/17 19:26 21 08/03/17 19:25 77 18 97 Room Air 21 08/03/17 16:00 97.7 74 20 112/66 97 97.7 08/03/17 16:00 Room Air 08/03/17 13:02 80 20 98 Room Air 21 08/03/17 12:54 21 08/03/17 12:54 79 18 96 Room Air 21 08/03/17 11:43 97.5 82 19 95/62 95 97.5 08/03/17 11:43 Room Air Height (Feet): 6 Height (Inches): 1.00 Weight (Pounds): 170 HEENT: mucous membranes moist Respiratory/Chest: lungs clear Cardiovascular: normal rate Abdomen: soft, non tender Extremities: no edema, other - R hand contracture Neurologic/Psychiatric: alert, responsive Current Medications Medications (Trade) Dose Ordered Sig/Justina Route PRN Reason Start Time Stop Time Status Last Admin Dose Admin Acetaminophen (Tylenol) 650 mg Q4H PRN ORAL Mild Pain/Temp > 100.5 08/01/17 06:30 08/31/17 06:29 08/04/17 06:03 Acetaminophen (Tylenol) 650 mg Q4H PRN RECTAL Mild Pain (Pain Scale 1-3) 08/01/17 06:30 08/31/17 06:29 Albuterol/ Ipratropium (Albuterol/ Ipratropium) 3 ml Q4H PRN HHN Shortness of Breath 07/31/17 13:30 08/05/17 13:29 Albuterol/ Ipratropium (Albuterol/ Ipratropium) 3 ml Q6HRT HHN 07/31/17 19:00 08/05/17 18:59 08/04/17 07:36 Guaifenesin (Robitussin) 200 mg Q6H ORAL 08/01/17 12:00 08/31/17 11:59 08/03/17 00:40 Guaifenesin/ Dextromethorphan (Robitussin DM) 10 ml Q4H PRN ORAL For Cough 07/31/17 13:30 08/30/17 13:29 Heparin Sodium (Porcine) (Heparin 5000 units/ml) 5,000 units EVERY 12 HOURS SUBQ 07/31/17 21:00 08/30/17 20:59 08/02/17 09:07 Piperacillin Sod/ Tazobactam Sod 3.375 gm/Sodium Chloride 110 ml @ 27.5 mls/hr EVERY 8 HOURS IVPB 07/31/17 14:30 08/05/17 14:29 08/04/17 06:03 AAN MYRICK Aug 04, 2017 09:07
[2017-08-04] MEDS ORDERED: Norco 5mg/325mg tab ORAL PRN (11:00)
--- NOTE | 2017-08-04 14:08 | Neurology Progress Note ---
Interim History Interim History Interim History Mr. Beltran feels very well. The mind is clear. He ate well and his appetite is better. The cough is better. He has had no fevers or chills. He feels generally stronger. He feels brighter. He denies any new neurologic symptoms. He tells me that he may be going home tomorrow. Review of Systems Neuro Review of Systems Benign. Objective Physical Exam Last Vital Signs Date Time Temp Pulse Resp B/P (MAP) Pulse Ox O2 Delivery O2 Flow Rate FiO2 08/04/17 13:05 78 20 Room Air 21 08/04/17 12:54 96.8 08/04/17 12:09 92/55 96 Neurologic Exam Objective PHYSICAL EXAMINATION: GENERAL: He is a well-developed, well-nourished, black gentleman, lying in bed , in no acute distress. HEAD: Normocephalic and atraumatic. NECK: No neck rigidity was observed. EENT: Benign. NEUROLOGICAL EXAMINATION: MENTAL STATUS EXAMINATION: He was awake and alert. He was oriented to [facility], and July 2017. He did not know the date. He was able to recall 3/3 words immediately, but could only remember 2/3 in 1 minute or 3 minutes. He was able to remember Presidents Trump through Becerra Albert only. His mathematical skills were impaired. His visuospatial function was also impaired. SPEECH: He had a mild dysarthria. LANGUAGE: He had anomia for low frequency words. CRANIAL NERVE EXAMINATION: II: The visual rod were intact to confrontation testing. III, IV, : External ocular movements were full, and the pupils 3 mm in diameter, equal, round, regular, and reactive to light. V: He had normal facial sensations and the temporales, masseters, and pterygoids functioned normally. VII: He had a right greater than left VII central facial paresis. VIII: He was able to hear well and had no nystagmus. IX: The palate moved symmetrically on phonation. X: He had no hoarseness of voice. XI: The sternocleidomastoids and trapezii functioned normally. XII: The tongue was in the midline without any fasciculations or atrophy. MOTOR SYSTEM: The tone was increased in all four extremities with spasticity, more marked on the right side compared to the left. Examination of muscle mass revealed wasting of the hand muscles on the right side and foot muscles bilaterally. Examination of power revealed G 0/5 on the right except for G 3/5 in the biceps , shoulder rotators, hip rotators and quadriceps. On the left side he had G 5-/ 5 except for G 4/5 in the iliopsoas. SENSORY EXAMINATION: He responded appropriately to light touch. He was unable to cooperate for the sensory modalities. REFLEXES: 2++ on the right and trace+ on the left at the biceps, triceps and brachioradialis. 0 at the knees and ankles. The plantar response was extensor on the right and flexor on the left. COORDINATION: He was able to do finger to nose testing on the left side only. STANCE & GAIT: Could not be tested. Impression/Recommendations Diagnostic Impression 1. Mr. Elian Beltran is an 81-year-old, left-handed, black gentleman, who does have a past history of hypertension, diabetes mellitus and cerebrovascular disease who was hospitalized for an alteration in his mental state, a cough productive of sputum, fevers with chills, and generalized weakness. 2. He feels very well and the mind is clear. The cough is better. He has had no fevers or chills. He feels generally stronger. He feels brighter. He denies any new neurologic symptoms. His appetite is better. 3. On neurological examination, at this time, he is oriented to self, [facility], and July 2017. He is able to recall 3/3 words immediately, can remember 2/3 in 1 minute or 3 minutes. He is able to remember Presidents Trump through Becerra Albert only. His mathematical skills are impaired and so is the visuospatial function. He has a mild anomia. 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 In addition, his speech is dysarthric and he has right greater than left VII central facial paresis. 4. Laboratory data on admission revealed a significant leukopenia with a WBC count of 4,700 and a low platelet count of 145,000. A chemistry panel with BUN elevated to 35 with a creatinine of 1.8. A low albumin at 2.6 and a UA with 1+ leukocyte esterase, 0-2 RBCs and 2-4 WBCs per HPF. 5. Further laboratory tests have revealed a normal B12, Folate, and TSH. 6. 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 7. His encephalopathy has improved significantly. Recommendations 1. Continue present management. 2. Continue aggressive treatment of infectious processes. 3. Out of bed in cardiac chair. 4. Observe closely. Ashley Wu M.D., M.S.P.Rebeka. ASHLEY WU Aug 04, 2017 14:08
--- NOTE | 2017-08-04 16:25 | Cardiology Report ---
APPROVED REPORT EKG Measurement Heart [id number] Sinus tachycardia with frequent premature ventricular complexes Otherwise normal ECG
[2017-08-05] VITALS (8 sets, daily range): BP systolic 92–143; BP diastolic 44–76
[2017-08-05] MEDS: Albuterol/Ipratropium 3ml neb HHN SCH ×3 (01:07→11:37)
[2017-08-05] MEDS: guaiFENesin 100mg/5ml Liq ud ORAL SCH ×4 (05:05→17:48)
[2017-08-05] MEDS: Heparin 5000 units/ml inj SUBQ SCH ×2 (08:47→20:52)
--- NOTE | 2017-08-05 09:09 | Pulmonology Progress Note ---
Assessment/Plan Problems: (1) Pneumonia (2) Sepsis (3) Dehydration (4) shortness of breath Assessment/Plan ASSESSMENT: The patient is an 81-year-old male with history of CVA, hypertension, hyperlipidemia, possible dementia, and CKD, presenting with febrile illness and a right lower lobe infiltrate likely healthcare-associated pneumonia. Given he lives in a residential facility plus or minus aspiration. PROBLEM LIST: 1. Right lower lobe infiltrate, healthcare-associated pneumonia. 2. Lactic acidosis - RESOLVED 3. Systemic inflammatory response syndrome - HEMODYNAMICALLY STABLE 4. TRUDY, on CKD - IMPROVED 5. 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 6. Prior CVA. 7. Possible dementia. 8. Hypertension. 9. Hyperlipidemia. 10. Diabetes. 11. Gout TREATMENT PLAN: 1. CXR 2. Optimize pulmonary hygiene/mobilize as tolerated. 2. As needed O2 to keep saturations greater than 90%. 3. Round the clock and as needed DuoNebs. 4. Observe off Abx per ID 5. Diet per AUTOMATION ANALYST with STRICT aspiration precautions 6. Aspiration precautions. 7. DVT prophylaxis, heparin subcutaneously. 8. Monitor volumes and renal function 9. Full Code. Subjective Allergies: Coded Allergies: No Known Allergies (Unverified , 10/12/15) Call to [facility], spoke with KALA Fung confirmed paperwork which indicated no known allergies to medications. Subjective Weekend events reviewed AFVSS, stable on RA, VSS noted minimal cough/FURNACE CONVERTER, less SOB, no F/C Objective Last 24 Hour Vital Signs Date Time Temp Pulse Resp B/P (MAP) Pulse Ox O2 Delivery O2 Flow Rate FiO2 08/05/17 07:12 90 18 99 Room Air 21 08/05/17 07:06 21 08/05/17 07:05 88 18 96 Room Air 21 08/05/17 04:00 98.0 84 18 105/59 100 Room Air 98.0 08/05/17 01:12 73 18 99 Room Air 21 08/05/17 01:06 21 08/05/17 01:05 73 18 99 Room Air 21 08/05/17 00:00 97.7 81 19 135/76 99 Room Air 97.7 08/04/17 20:18 96.6 71 18 112/65 100 Room Air 96.6 08/04/17 19:53 61 18 96 Room Air 21 08/04/17 19:42 21 08/04/17 19:42 61 18 96 Room Air 21 08/04/17 16:00 96.4 67 18 128/72 94 Room Air 96.4 08/04/17 13:53 96.8 08/04/17 13:05 78 20 Room Air 21 08/04/17 13:00 102/63 08/04/17 12:54 75 18 Room Air 21 08/04/17 12:54 96.8 08/04/17 12:09 96.8 77 18 92/55 96 Room Air 96.8 08/04/17 11:03 96.6 08/04/17 10:04 96.6 Intake and Output 08/04/17 08/05/17 19:00 07:00 Intake Total 480 ml 120 ml Balance 480 ml 120 ml Intake Oral 480 ml 120 ml # Voids 2 3 # Bowel Movements 1 1 General Appearance: WD/WN, no acute distress HEENT: normocephalic, atraumatic, anicteric, mucous membranes moist Respiratory/Chest: chest wall non-tender, lungs clear, normal breath sounds, no respiratory distress, no accessory muscle use Cardiovascular: normal peripheral pulses, normal rate, regular rhythm Abdomen: normal bowel sounds, soft, non tender, no organomegaly, non distended Extremities: no cyanosis, no clubbing, no edema Current Medications Medications (Trade) Dose Ordered Sig/Justina Route PRN Reason Start Time Stop Time Status Last Admin Dose Admin Acetaminophen (Tylenol) 650 mg Q4H PRN ORAL Mild Pain/Temp > 100.5 08/01/17 06:30 08/31/17 06:29 08/04/17 10:04 Acetaminophen (Tylenol) 650 mg Q4H PRN RECTAL Mild Pain (Pain Scale 1-3) 08/01/17 06:30 08/31/17 06:29 Acetaminophen/ Hydrocodone Bitart (Magness 5/325) 1 tab Q4H PRN ORAL Severe Pain (Pain Scale 7-10) 08/04/17 11:00 08/11/17 10:59 08/04/17 12:54 Albuterol/ Ipratropium (Albuterol/ Ipratropium) 3 ml Q4H PRN HHN Shortness of Breath 07/31/17 13:30 08/05/17 13:29 Albuterol/ Ipratropium (Albuterol/ Ipratropium) 3 ml Q6HRT HHN 07/31/17 19:00 08/05/17 18:59 08/05/17 07:05 Guaifenesin (Robitussin) 200 mg Q6H ORAL 08/01/17 12:00 08/31/17 11:59 08/03/17 00:40 Guaifenesin/ Dextromethorphan (Robitussin DM) 10 ml Q4H PRN ORAL For Cough 07/31/17 13:30 08/30/17 13:29 Heparin Sodium (Porcine) (Heparin 5000 units/ml) 5,000 units EVERY 12 HOURS SUBQ 07/31/17 21:00 08/30/17 20:59 08/05/17 08:47 VANDANA KENT M.D. Aug 05, 2017 09:09
--- NOTE | 2017-08-05 12:22 | Diagnostic Imaging Report ---
Indication: Cough Technique: One view of the chest Comparison: 07/31/2017 Findings: Again demonstrated is consolidation at the right lung base. This may be slightly increased. There is suggestion of increase atelectasis and possibly some linear infiltrate at the left lung base. The pleural spaces are clear. The heart size is normal Impression: Increasing right basilar consolidation, new or increased left basilar atelectasis or interstitial infiltrate, over 5 days
--- NOTE | 2017-08-05 12:36 | Infectious Diseases Prog Note ---
Assessment/Plan Assessment/Plan antibiotics : zosyn A 1. pneumonia 2. DM 3. HTN 4. CVA P 1. continue zosyn 2. will follow up cultures Subjective ROS Limited/Unobtainable: Yes Allergies: Coded Allergies: No Known Allergies (Unverified , 10/12/15) Call to [facility], spoke with KALA Fung confirmed paperwork which indicated no known allergies to medications. Objective Vital Signs Last 24 Hour Vital Signs Date Time Temp Pulse Resp B/P (MAP) Pulse Ox O2 Delivery O2 Flow Rate FiO2 08/05/17 12:00 97.5 68 19 143/69 96 97.5 08/05/17 11:44 89 18 98 Room Air 21 08/05/17 11:37 85 18 96 Room Air 21 08/05/17 11:37 21 08/05/17 08:00 98.1 88 19 109/54 94 98.1 08/05/17 07:12 90 18 99 Room Air 21 08/05/17 07:06 21 08/05/17 07:05 88 18 96 Room Air 21 08/05/17 04:00 98.0 84 18 105/59 100 Room Air 98.0 08/05/17 01:12 73 18 99 Room Air 21 08/05/17 01:06 21 08/05/17 01:05 73 18 99 Room Air 21 08/05/17 00:00 97.7 81 19 135/76 99 Room Air 97.7 08/04/17 20:18 96.6 71 18 112/65 100 Room Air 96.6 08/04/17 19:53 61 18 96 Room Air 21 08/04/17 19:42 21 08/04/17 19:42 61 18 96 Room Air 21 08/04/17 16:00 96.4 67 18 128/72 94 Room Air 96.4 08/04/17 13:53 96.8 08/04/17 13:05 78 20 Room Air 21 08/04/17 13:00 102/63 08/04/17 12:54 75 18 Room Air 21 08/04/17 12:54 96.8 Height (Feet): 6 Height (Inches): 1.00 Weight (Pounds): 170 Respiratory/Chest: lungs clear Cardiovascular: normal rate, regular rhythm, no gallop/murmur Abdomen: soft, non tender Extremities: no edema TROY PERALTA Aug 05, 2017 12:35
[2017-08-05] MEDS ORDERED: Piperacillin/Tazobactam 3.375 GM in NS 110 ML IVPB SCH (14:00)
[2017-08-05] MEDS: Levofloxacin 500mg tab ORAL SCH (15:27)
--- NOTE | 2017-08-05 15:33 | Cardiac Electrophysiology PN ---
Assessment/Plan Assessment/Plan 1. PVCs, no syncope. Echocardiogram showed EF 55% to 60%. Denies chest pain or shortness of breath. 2. History of hypertension. Stable, off antihypertensives. 3. History of prior CVA. 4. Pneumonia on po Levaquin 5, Dysphagia. Had swallow eval on Puree diet DW RN Subjective Subjective Comfortable in NAD. Family and.RN at bedside Objective Last 24 Hour Vital Signs Date Time Temp Pulse Resp B/P (MAP) Pulse Ox O2 Delivery O2 Flow Rate FiO2 08/05/17 12:00 97.5 68 19 143/69 96 97.5 08/05/17 11:44 89 18 98 Room Air 21 08/05/17 11:37 85 18 96 Room Air 21 08/05/17 11:37 21 08/05/17 08:00 98.1 88 19 109/54 94 98.1 08/05/17 07:12 90 18 99 Room Air 21 08/05/17 07:06 21 08/05/17 07:05 88 18 96 Room Air 21 08/05/17 04:00 98.0 84 18 105/59 100 Room Air 98.0 08/05/17 01:12 73 18 99 Room Air 21 08/05/17 01:06 21 08/05/17 01:05 73 18 99 Room Air 21 08/05/17 00:00 97.7 81 19 135/76 99 Room Air 97.7 08/04/17 20:18 96.6 71 18 112/65 100 Room Air 96.6 08/04/17 19:53 61 18 96 Room Air 21 08/04/17 19:42 21 08/04/17 19:42 61 18 96 Room Air 21 08/04/17 16:00 96.4 67 18 128/72 94 Room Air 96.4 Intake and Output 08/04/17 08/05/17 19:00 07:00 Intake Total 480 ml 120 ml Balance 480 ml 120 ml Intake Oral 480 ml 120 ml # Voids 2 3 # Bowel Movements 1 1 Objective HEAD AND NECK: No JVD. LUNGS: Clear. CARDIOVASCULAR: Regular S1 and S2 with no gallop or murmur. ABDOMEN: Soft. EXTREMITIES: Contracture of right upper extremity. CHUCKIE VELARDE Aug 05, 2017 15:33
--- NOTE | 2017-08-05 21:33 | General Progress Note ---
Assessment/Plan Assessment/Plan pneumonia encephalopathy resolving renal insufficinecy ho cva ho seizure disorder ho CM abx per ID dcd fluids swallow eval noted recheck cxr today dw dr juarez pulmonary hygiene PT/OT/ST dvt and ulcer prhylaxis dc plans hme with home health. patient doesnt wnt snf Subjective Allergies: Coded Allergies: No Known Allergies (Unverified , 10/12/15) Call to [facility], spoke with KALA Fung confirmed paperwork which indicated no known allergies to medications. Subjective pos cough improved no chest pain no sob alert Objective Last 24 Hour Vital Signs Date Time Temp Pulse Resp B/P (MAP) Pulse Ox O2 Delivery O2 Flow Rate FiO2 08/05/17 20:48 82 18 Room Air 21 08/05/17 19:55 106/59 Room Air 08/05/17 19:36 97.9 85 20 92/44 97 Room Air 97.9 08/05/17 16:00 97.9 95 19 100/67 95 97.9 08/05/17 12:00 97.5 68 19 143/69 96 97.5 08/05/17 11:44 89 18 98 Room Air 21 08/05/17 11:37 85 18 96 Room Air 21 08/05/17 11:37 21 08/05/17 08:00 98.1 88 19 109/54 94 98.1 08/05/17 07:12 90 18 99 Room Air 21 08/05/17 07:06 21 08/05/17 07:05 88 18 96 Room Air 21 08/05/17 04:00 98.0 84 18 105/59 100 Room Air 98.0 08/05/17 01:12 73 18 99 Room Air 21 08/05/17 01:06 21 08/05/17 01:05 73 18 99 Room Air 21 08/05/17 00:00 97.7 81 19 135/76 99 Room Air 97.7 Intake and Output 08/04/17 08/05/17 19:00 07:00 Intake Total 480 ml 120 ml Balance 480 ml 120 ml Intake Oral 480 ml 120 ml # Voids 2 3 # Bowel Movements 1 1 Height (Feet): 6 Height (Inches): 1.00 Weight (Pounds): 170 General Appearance: WD/WN, no apparent distress Neck: supple Cardiovascular: normal rate Respiratory/Chest: rhonchi - bilaterally Abdomen: soft Objective right sided hemiparesis LAURA UNGER Aug 05, 2017 21:33
[2017-08-06] MEDS: guaiFENesin 100mg/5ml Liq ud ORAL SCH ×5 (00:57→18:00)
[2017-08-06 03:56] VITALS: BP 105/58
[2017-08-06 08:00] VITALS: BP 98/60
[2017-08-06] MEDS: Heparin 5000 units/ml inj SUBQ SCH ×2 (08:14→21:00)
[2017-08-06] MEDS: Levofloxacin 500mg tab ORAL SCH (08:18)
--- NOTE | 2017-08-06 10:01 | Cardiology Report ---
APPROVED REPORT EXAM: Two-dimensional and M-mode echocardiogram with Doppler and color Doppler. INDICATION Congestive Heart Failure Technically limited and difficult study due to poor acoustical windows. Parasternal windows not obtainable. M-mode measurements not obtainable due to cardiac structure. Normal left ventricular chamber size, systolic function and wall motion. Left ventricular ejection fraction estimated to be 55-60%. No evidence of left ventricular hypertrophy. No evidence of pericardial or pleural effusion. All other cardiac chamber sizes are within normal limits. Calcified aortic valve sclerosis with adequate cusp excursion. Thickened mitral valve leaflets with normal excursion. Mild mitral annulus and aortic root calcification. Pulmonic valve not well visualized. Normal tricuspid valve structure. IVC is normal in size and collapsible with respiration. A color flow and spectral Doppler study was performed and revealed: No aortic regurgitation. No mitral regurgitation. Mitral diastolic velocities suggest reduced left ventricular relaxation c/w diastolic dysfunction grade 1. No tricuspid regurgitation.
--- NOTE | 2017-08-06 10:40 | Infectious Diseases Prog Note ---
Assessment/Plan Assessment/Plan antibiotics : levoquin A 1. pneumonia 2. DM 3. HTN 4. CVA P 1. zosyn d/c 2. levoquin started, continue 3 more days 3. will follow up cultures Subjective Constitutional: Denies: fever, chills Respiratory: Denies: shortness of breath, dry cough Gastrointestinal/Abdominal: Denies: nausea, vomiting, diarrhea Musculoskeletal: Denies: pain Allergies: Coded Allergies: No Known Allergies (Unverified , 10/12/15) Call to [facility], spoke with KALA Fung confirmed paperwork which indicated no known allergies to medications. Objective Vital Signs Last 24 Hour Vital Signs Date Time Temp Pulse Resp B/P (MAP) Pulse Ox O2 Delivery O2 Flow Rate FiO2 08/06/17 08:00 97.9 61 19 98/60 94 97.9 08/06/17 03:56 98.1 85 20 105/58 95 Room Air 98.1 08/05/17 23:48 97.9 80 20 96/52 97 Room Air 97.9 08/05/17 20:48 82 18 Room Air 21 08/05/17 19:55 106/59 Room Air 08/05/17 19:36 97.9 85 20 92/44 97 Room Air 97.9 08/05/17 16:00 97.9 95 19 100/67 95 97.9 08/05/17 12:00 97.5 68 19 143/69 96 97.5 08/05/17 11:44 89 18 98 Room Air 21 08/05/17 11:37 85 18 96 Room Air 21 08/05/17 11:37 21 Height (Feet): 6 Height (Inches): 1.00 Weight (Pounds): 170 Respiratory/Chest: lungs clear Cardiovascular: normal rate, regular rhythm, no gallop/murmur Abdomen: soft, non tender Extremities: no edema TROY PERALTA Aug 06, 2017 10:40
[2017-08-06] MEDS ORDERED: LEVAQUIN500 MG ORAL (11:54)
[2017-08-06 12:00] VITALS: BP 106/68
--- NOTE | 2017-08-06 15:38 | Cardiac Electrophysiology PN ---
Assessment/Plan Assessment/Plan 1. PVCs, no syncope. Echocardiogram showed EF 55% to 60%. No chest pain or shortness of breath. 2. Hypertension. Stable, off antihypertensives. 3. History of prior CVA. 4. Pneumonia on po Levaquin 5, Dysphagia. Had swallow eval on Puree diet 6. DC planning to [facility] today RODERICK RN Subjective Subjective Comfortable in NAD. DC planning in progress today Objective Last 24 Hour Vital Signs Date Time Temp Pulse Resp B/P (MAP) Pulse Ox O2 Delivery O2 Flow Rate FiO2 08/06/17 12:00 97.7 70 20 106/68 96 97.7 08/06/17 08:00 97.9 61 19 98/60 94 97.9 08/06/17 03:56 98.1 85 20 105/58 95 Room Air 98.1 08/05/17 23:48 97.9 80 20 96/52 97 Room Air 97.9 08/05/17 20:48 82 18 Room Air 21 08/05/17 19:55 106/59 Room Air 08/05/17 19:36 97.9 85 20 92/44 97 Room Air 97.9 08/05/17 16:00 97.9 95 19 100/67 95 97.9 Intake and Output 08/05/17 08/06/17 19:00 07:00 Intake Total 360 ml Output Total 650 ml Balance -290 ml Intake Oral 360 ml Output Urine Total 650 ml # Voids 3 Objective HEAD AND NECK: No JVD. LUNGS: Clear. CARDIOVASCULAR: Regular S1 and S2 with no gallop or murmur. ABDOMEN: Soft. EXTREMITIES: Contracture of right upper extremity. CHUCKIE VELARDE Aug 06, 2017 15:38
[2017-08-06 16:00] VITALS: BP 104/64
[2017-08-06 20:20] VITALS: BP 123/64
--- NOTE | 2017-08-08 11:32 | Discharge Summary ---
Discharge Summary Hospital Course Date of Admission Jul 31, 2017 at 10:02 Date of Discharge Aug 06, 2017 at 22:00 Admitting Diagnosis WEAKNESS, FEVER HPI Elian Beltran is a 81 year old male who was admitted on Jul 31, 2017 at 10:02 for Weakness, Fever Hospital Course [id number] Discharge Discharge Disposition Patient was discharged to Home with Home Health(06) Discharge Diagnoses: Molly Theodore NP Aug 08, 2017 11:32
--- NOTE | 2017-08-08 11:36 | Diagnostic Imaging Report ---
Indications: Dysphagia Technique: Patient ingested multiple substances under the supervision of speech pathology. Video fluoroscopic recording performed. Total fluoroscopy time 172 seconds. Total dose area product [id number] mGycm2 Comparison: none Findings: Multiple of centimeters above penetration of thin liquid barium demonstrated. No yaniv aspiration. Penetration of nectar thick liquid barium is also demonstrated. No aspiration or penetration of honey thick liquid barium, barium puree, and barium-soaked solid. Some delay in initiation of deglutition, no significant early or delayed pooling of substances other than barium-soaked solid which does pool in the vallecula.. Impression: Positive for penetration of thin and nectar thick liquid barium Please refer to speech pathology report for more detailed analysis
--- NOTE | 2017-08-09 00:15 | Discharge Summary 2 SIG ---
DATE OF ADMISSION: 07/31/2017 DATE OF DISCHARGE: 08/06/2017 CONSULTANTS: 1. Bebo Damico M.D. 2. Artemio Suero M.D. 3. Ovidio Whiteside M.D. 4. Oz Blandon M.D. BRIEF HOSPITAL COURSE: The patient is an unfortunate 81-year-old gentleman with history of CVA with right-sided hemiparesis, history of diabetes, hypertension, hyperlipidemia, who resides at home. He had been having cough over the past several days and was noted to have fever. He presented to emergency room for further evaluation. At ED, blood work showed WBC 4.7. Hemoglobin and hematocrit were stable. BUN was elevated to 35 with creatinine 1.8. Lactic acid was 2.4. Troponin was negative. He had a chest x-ray done that showed right lobe infiltrate. EKG was normal sinus rhythm with no acute ischemic changes seen. He was then admitted for evaluation of cough and shortness of breath. Influenza screen was negative. He was pancultured. At ED, he was initially febrile at 101.2. He was given pulmonary support/hygiene and [id number] and as-needed DuoNebs. He was started empirically on Zosyn pending culture results. He underwent neurologic evaluation. The patient had structural brain disease-related cerebrovascular disease related to history of vascular disease with superadded encephalopathy due to pneumonia, UTI, dehydration, and renal dysfunction. Blood cultures did not isolate any growth. Sputum culture was negative. His lactic acidosis resolved and acute kidney injury responded to IV fluids. Encephalopathy improved significantly. On echocardiogram, he had PVCs, however, no syncope. Echocardiogram showed EF 55% to 60%. He had history of hypertension, however, he has been off antihypertensives. He was given PT and OT. He came in with sacral deep tissue injury and right lateral malleolus deep tissue injury. He was given wound care. He was recommended residential facility, however, the patient refused residential facility placement. He was then discharged home with home health. FINAL DIAGNOSES: 1. Pneumonia. 2. Acute encephalopathy, resolving. 3. Renal insufficiency/acute kidney injury. 4. Old CVA. 5. Seizure disorder. 6. Prior cardiomyopathy. 7. Deep tissue injury, present on admission. 8. Dysphagia. Swallow evaluation recommended pureed diet. DISPOSITION: The patient was discharged home with [facility]. DISCHARGE MEDICATIONS: Refer to medication list. DISCHARGE INSTRUCTIONS: Follow up as an outpatient. Pedro Law M.D. I have been assigned to dictate discharge summary on this account and I was not involved in the patient's management. Molly Theodore N.P. DR: Fabienne JOB#: [id number] CC: HARSHA
== END 2017-08-06 22:00 | disposition home health service (06) | DRG 193 ==
LOC: EDBD 08:00 → EMR 08:30 → 4W 10:02 → EDBEDREQ 10:08
DX: J18.9 Pneumonia, unspecified organism (principal); G93.40 Encephalopathy, unspecified; N17.9 Acute kidney failure, unspecified; L89.150 Pressure ulcer of sacral region, unstageable; I13.0 Hypertensive heart and chronic kidney disease with heart failure and stage 1 through stage 4 chronic kidney disease, or unspecified chronic kidney disease; I50.40 Unspecified combined systolic (congestive) and diastolic (congestive) heart failure; I69.351 Hemiplegia and hemiparesis following cerebral infarction affecting right dominant side; F03.90 Unspecified dementia, unspecified severity, without behavioral disturbance, psychotic disturbance, mood disturbance, and anxiety; R13.10 Dysphagia, unspecified; N39.0 Urinary tract infection, site not specified; E86.0 Dehydration; N18.9 Chronic kidney disease, unspecified; Z88.0 Allergy status to penicillin; F20.9 Schizophrenia, unspecified; E11.9 Type 2 diabetes mellitus without complications; E78.5 Hyperlipidemia, unspecified; I25.10 Atherosclerotic heart disease of native coronary artery without angina pectoris; G40.909 Epilepsy, unspecified, not intractable, without status epilepticus; M10.9 Gout, unspecified; I49.3 Ventricular premature depolarization; L89.510 Pressure ulcer of right ankle, unstageable
CPT/HCPCS: 36415; 36600; 71045; 74230; 80048; 80053; 80061; 81003; 82248; 82306; 82550; 82553; 82607; 82746; 82803; 82962; 83036; 83605; 83880; 84439; 84443; 84484; 85007; 85025; 86710; 87040; 87070; 87081; 87205; 93005; 93306; 94640; 94664; 99285; J7620